=== PATIENT | female | born 1945 | race Caucasian/White ===

== ENCOUNTER 2017-04-07 07:49 | Day surgery (SDC) | payer MEDICARE, OTHER ==
[~2017-04-07] VITALS: Ht 172.7 cm; Wt 144.7 kg
[~2017-04-07 07:49] MED LIST: ALBU90OI INH; ALPHA LIPOIC A600 MG PO; ASPI325 PO; ASPI81CH PO; CHOL10002 PO; DILT30 PO; FURO40 PO; GLIP10ER PO; HTN MEDS; IBUP800 PO; LOSARTAN-HCTZ1 EAC1 PO; LOSHYD100 PO; METF500 PO; MOXI400 PO; NAPR220 PO; Neurontin300 MG PO; OXYACE5T PO; POTCHL20ER PO; RXTRAM50 PO; SITA100T2 PO; TRAM50 PO; WALKER USE; XARELTO20 MG PO
== END 2017-04-07 22:55 | disposition home or self-care (01) ==
LOC: ORSCMMR 07:49
DX: K62.5 Hemorrhage of anus and rectum (principal); D12.4 Benign neoplasm of descending colon; K63.5 Polyp of colon; K64.4 Residual hemorrhoidal skin tags; I10 Essential (primary) hypertension; E11.40 Type 2 diabetes mellitus with diabetic neuropathy, unspecified; G47.33 Obstructive sleep apnea (adult) (pediatric); E66.01 Morbid (severe) obesity due to excess calories; Z68.42 Body mass index [BMI] 45.0-49.9, adult; I48.91 Unspecified atrial fibrillation; Z79.82 Long term (current) use of aspirin; Z79.899 Other long term (current) drug therapy; Z79.84 Long term (current) use of oral hypoglycemic drugs
CPT/HCPCS: 82947; 88305; J2250; J3010; J7120

== ENCOUNTER 2018-05-18 15:09 | Inpatient (IN) | payer MEDICARE, OTHER ==
[~2018-05-18] VITALS: Ht 172.7 cm; Wt 124.0 kg
[~2018-05-18 15:09] MED LIST changes: +GABA600 PO; -LOSARTAN-HCTZ1 EAC1 PO; +LOSARTAN-HCTZ1 EACH PO; -METF500 PO; +Metformin HCl1000 MG PO; -Neurontin300 MG PO
[2018-05-18 15:47] LABS: BASOPHILS ABSOLUTE AUTO 0.03 K/mm3 (0.00-0.23); BASOPHILS PERCENT AUTO 0 % (0-2); EOSINOPHILS ABSOLUTE AUTO 0.15 K/mm3 (0.00-0.68); EOSINOPHILS PERCENT AUTO 2 % (0-6); Hematocrit 39.9 % (33.0-51.0); Hemoglobin 11.7 g/dL (11.5-16.0); IMMATURE GRAN ABSOLUTE AUTO 0.05 K/mm3 (0.00-0.10); IMMATURE GRAN PERCENT AUTO 1 % (0-1); LYMPHOCYTES ABSOLUTE AUTO 1.88 K/mm3 (0.84-5.20); LYMPHOCYTES PERCENT AUTO 21 % (21-46); MONOCYTES ABSOLUTE AUTO 0.58 K/mm3 (0.16-1.47); MONOCYTES PERCENT AUTO 7 % (4-13); Mean Corpuscular HGB 28.7 pg (26.0-34.0); Mean Corpuscular HGB Conc 29.3 g/dL (31.5-36.5); Mean Corpuscular Volume 98 fL (80-100); Mean Platelet Volume 10.6 fL (9.1-12.4); NEUTROPHILS ABSOLUTE AUTO 6.11 K/mm3 (1.96-9.15); NEUTROPHILS PERCENT AUTO 69 % (41-73); Platelet Count 279 K/mm3 (150-400); RDW Standard Deviation 53.5 fL (35.1-46.3); Red Blood Cell Count 4.07 M/mm3 (3.80-5.20)
[2018-05-18] MEDS ORDERED: ONGLYZA5 MG PO (15:59)
[2018-05-18] MEDS ORDERED: ROSU10TA PO (15:59)
[2018-05-18] MEDS ORDERED: ONE DAILY COMP1 EACH PO (16:00)
[2018-05-18] MEDS ORDERED: ALPHA LIPOIC A600 MG PO (16:01)
[2018-05-18] MEDS ORDERED: B Complex #11 EACH PO (16:01)
[2018-05-18] MEDS ORDERED: B-121000 MC2 PO (16:01)
[2018-05-18] MEDS ORDERED: CVS GLUCOSAMN-1 EACH PO (16:14)
[2018-05-18] MEDS ORDERED: MAGOXI400 PO (16:14)
[2018-05-18] MEDS ORDERED: NAPR220 PO (16:15)
[2018-05-18] MEDS ORDERED: DILTIAZEM 24HR240 M2 PO (16:15)
[2018-05-18 16:17] LABS: Troponin I <0.015 ng/mL (0.000-0.040)
[2018-05-18 16:18] LABS: Alanine Aminotransfer (ALT/SGP 18 U/L (12-78); Albumin, Blood 3.2 g/dL (3.4-5.0); Albumin/Globulin Ratio 0.6 (0.8-1.8); Alk Phos 96 U/L (50-136); Anion Gap 9 mmol/L (6-16); Aspartate Aminotrans (AST/SGOT 16 U/L (12-37); Bilirubin, Total 1.3 mg/dL (0.1-1.0); Blood Urea Nitrogen 19 mg/dL (8-24); Bun/Creatinine Ratio 19.2 (12.0-20.0); CO2, Blood 28 mmol/L (21-32); Calcium, Blood 8.5 mg/dL (8.5-10.1); Chloride, Blood 103 mmol/L (98-108); Creatinine, Blood 0.99 mg/dL (0.40-1.00); Glomerular Filtration Rate 58 (60-); Glucose, Blood 207 mg/dL (70-99); Potassium, Blood 4.2 mmol/L (3.5-5.5); Sodium, Blood 140 mmol/L (136-145); Total Protein, Blood 8.2 g/dL (6.4-8.2)
--- NOTE | 2018-05-18 20:30 | NUR ---
ASSUMED CARE REPORT TAKEN FROM ED RN LUIS ANGEL. PT ARRIVED TO UNIT AND MOVED TO HOSP BED UNASSISTED. PT ON BIPAP UPON ARRIVAL. RESP EVEN AND SLIGHTLY TACHYPNIC W/ AMBULATION. SATS >92%. SKIN IS PWD. PT REPORTS FEELING BETTER WITH BIPAP, REPORTS FEELING HINGRY HAS NTO EATEN SINCE BREAKFAST. CBG TAKEN AND SNACK PROVIDED. PT ON 4L O2 VIA NC WHILE EATING, TOLERATING BREAK FROM BIPAP WELL SATS 88-90%. PT RESUMES BIPAP AFTER SNACK. DENIES ANY CP, DENIES OTHER PAIN. CALL LIGHT IN REACH.
[2018-05-19 04:09] LABS: Hematocrit 38.1 % (33.0-51.0); Hemoglobin 11.4 g/dL (11.5-16.0); Mean Corpuscular HGB 29.1 pg (26.0-34.0); Mean Corpuscular HGB Conc 29.9 g/dL (31.5-36.5); Mean Corpuscular Volume 97 fL (80-100); Mean Platelet Volume 10.9 fL (9.1-12.4); NRBC ABSOLUTE 0.02 K/mm3 (0.00-0.02); NRBC Auto 0.3 /100 WBC (0.0-0.2); Platelet Count 248 K/mm3 (150-400); RDW Coefficient Variation 15.1 % (11.7-14.2); RDW Standard Deviation 52.8 fL (35.1-46.3); Red Blood Cell Count 3.92 M/mm3 (3.80-5.20); White Blood Cell Count 6.34 K/mm3 (4.00-11.30)
[2018-05-19 04:32] LABS: Magnesium, Blood 2.2 mg/dL (1.6-2.4)
[2018-05-19 04:33] LABS: Bun/Creatinine Ratio 22.5 (12.0-20.0); Calcium, Blood 8.8 mg/dL (8.5-10.1); Creatinine, Blood 1.11 mg/dL (0.40-1.00); Potassium, Blood 5.1 mmol/L (3.5-5.5)
--- NOTE | 2018-05-19 05:01 | NUR ---
SHIFT SUMMARY PT RESTING IN ROOM COMFORTABLY. PT HAD NO ACUTE CHANGES IN STATUS SINCE ARRIVAL. WORE BIPAP MOST OF THE NIGHT. REPORTS DID NOT SLEEP WELL. BUT STILL FEELS BETTER. PT NOW TAKING BREAK FROM BIPAP ON O2 VIA NC. SATS >92%. DENIES ANY SOB. DENIES ANY PAIN. SKIN PWD. CALL LIGHT IN REACH.
[2018-05-19 11:36] LABS: Adenovirus Not Detected (NOT DETECT); Bordetella pertussis Not Detected (NOT DETECT); Chlamydophila pneumoniae Not Detected (NOT DETECT); Coronavirus 229E Not Detected (NOT DETECT); Coronavirus HKU1 Not Detected (NOT DETECT); Coronavirus NL63 Not Detected (NOT DETECT); Coronavirus OC43 Not Detected (NOT DETECT); Human Metapneumovirus Not Detected (NOT DETECT); Human Rhinovirus/Enterovirus Not Detected (NOT DETECT); Influenza A Not Detected (NOT DETECT); Influenza A/2009-H1 Not Detected (NOT DETECT); Influenza A/H1 Not Detected (NOT DETECT); Influenza A/H3 Not Detected (NOT DETECT); Influenza B Not Detected (NOT DETECT); Mycoplasma pneumoniae Not Detected (NOT DETECT); Parainfluenza Virus 1 Not Detected (NOT DETECT); Parainfluenza Virus 2 Not Detected (NOT DETECT); Parainfluenza Virus 3 Not Detected (NOT DETECT); Parainfluenza Virus 4 Not Detected (NOT DETECT); Respiratory Syncytial Virus Not Detected (NOT DETECT)
--- NOTE | 2018-05-19 14:13 | NUR ---
patient just finished visit with pastoral care. patient tells me her breathing is at baseline, and that she is feeliing better today. patient has some neuropathy pain to lower legs but currently at baseline. patient oriented to room and call system
--- NOTE | 2018-05-19 14:16 | NUR ---
Spiritual care visit conducted. I entered patient's room and introduced myself. Patient welcomed me in and therapeutic alliance was easily established. Patient openly shared about her family unit complications, the loss of her loved ones and her medical hsitory. I facilitated a life review and learned about patient's talents, passions and mandaen background. I listened empathically, provided companionship and prayer. Patient responded well and displayed evidence of restored be.
--- NOTE | 2018-05-19 18:08 | NUR ---
summary patient cheerful, visiting with friends. patient sob with repositioning self which she states is a little worse than her baseline. patients lungs very decreased in bases and diminished in other lobes
--- NOTE | 2018-05-20 04:18 | NUR ---
PT HAD NO ACUTE CHANGES T/O NIGHT. BP ELEVATED EARLY IN SHIFT AFTER AMBULATION, DID RETURN TO PT NORMAL UPON FOR REMAINDER OF SHIFT. 2LO2 NC IN PLACE WHEN AWAKE, CPAP WHILE ASLEEP. PT REMAINS SOB W/EXERTION, PT REP SOB IS NEAR BASELINE. PT UP IN ROOM W/FWW+SBA. WILL CONT TO MONITOR UNTIL REP GIVEN TO ONCOMING RN.
[2018-05-20 06:38] LABS: Adenovirus Not Detected (NOT DETECT); Bordetella pertussis Not Detected (NOT DETECT); Chlamydophila pneumoniae Not Detected (NOT DETECT); Coronavirus 229E Not Detected (NOT DETECT); Coronavirus HKU1 Not Detected (NOT DETECT); Coronavirus NL63 Not Detected (NOT DETECT); Coronavirus OC43 Not Detected (NOT DETECT); Human Metapneumovirus Not Detected (NOT DETECT); Human Rhinovirus/Enterovirus Not Detected (NOT DETECT); Influenza A Not Detected (NOT DETECT); Influenza A/2009-H1 Not Detected (NOT DETECT); Influenza A/H1 Not Detected (NOT DETECT); Influenza A/H3 Not Detected (NOT DETECT); Influenza B Not Detected (NOT DETECT); Mycoplasma pneumoniae Not Detected (NOT DETECT); Parainfluenza Virus 1 Not Detected (NOT DETECT); Parainfluenza Virus 2 Not Detected (NOT DETECT); Parainfluenza Virus 3 Not Detected (NOT DETECT); Parainfluenza Virus 4 Not Detected (NOT DETECT); Respiratory Syncytial Virus Not Detected (NOT DETECT)
--- NOTE | 2018-05-20 11:36 | NUR ---
diabetes PATIENT DISCUSSING HER FOOD PREFERENCES AND TELLS ME SHE DOESNT LIKE ARTIFICIAL SWEETNERS AND LOVES SUGAR AND BUTTER. PATIENT TELLS ME SHE WILL EAT HONEY BECAUSE IT IS VERY HEALTHY. DISCUSSED WITH PATIENT POTENTIAL COMPLICATIONS FROM UNCONTROLLED DIABETES. AFTER SPEAKING WITH PATIENT SHE HAS A POOR UNDERSTANDING OF DIABETIC DIET. SPOKE WITH CAR WASHER AND CONSULT REQUESTED
== END 2018-05-20 14:13 | disposition home or self-care (01) | DRG 291 ==
LOC: ER 15:09 → PCU 17:43 → SURS 05-19 13:57
PROVIDERS: Emergency Medicine; Hospitalist; Nurse Practitioner Acute Care; ADMIT Internal Medicine
DX: I11.0 Hypertensive heart disease with heart failure (principal); J96.21 Acute and chronic respiratory failure with hypoxia; Z68.42 Body mass index [BMI] 45.0-49.9, adult; I50.33 Acute on chronic diastolic (congestive) heart failure; G47.33 Obstructive sleep apnea (adult) (pediatric); E66.01 Morbid (severe) obesity due to excess calories; I48.0 Paroxysmal atrial fibrillation; E11.9 Type 2 diabetes mellitus without complications; K21.9 Gastro-esophageal reflux disease without esophagitis; Z66 Do not resuscitate; Z88.5 Allergy status to narcotic agent; Z79.84 Long term (current) use of oral hypoglycemic drugs; Z79.01 Long term (current) use of anticoagulants; Z79.82 Long term (current) use of aspirin; Z79.899 Other long term (current) drug therapy; Z87.891 Personal history of nicotine dependence; Z99.81 Dependence on supplemental oxygen
CPT/HCPCS: 36415; 71045; 71260; 80048; 80053; 82375; 82947; 83735; 83880; 84145; 84484; 85025; 85027; 87081; 87486; 87581; 87633; 87798; 93005; 93010; 93306; 94640; 94660; 94760; 94762; 96374; 96375; 99285-25; A9270; J1940; J2930; Q9967

== ENCOUNTER 2019-03-10 16:25 | Inpatient (IN) | payer MEDICARE, OTHER ==
[~2019-03-10] VITALS: Ht 172.7 cm; Wt 143.8 kg
[~2019-03-10 16:25] MED LIST changes: +B Complex #11 EACH PO; +B-121000 MC2 PO; +CVS GLUCOSAMN-1 EACH PO; +DILTIAZEM ER360 MG PO; +MAGOXI400 PO; +ONE DAILY COMP1 EACH PO; +ONGLYZA5 MG PO; +ROSU10TA PO
[2019-03-10 17:08] LABS: BASOPHILS ABSOLUTE AUTO 0.04 K/mm3 (0.00-0.23); BASOPHILS PERCENT AUTO 0 % (0-2); EOSINOPHILS ABSOLUTE AUTO 0.01 K/mm3 (0.00-0.68); EOSINOPHILS PERCENT AUTO 0 % (0-6); Hematocrit 31.8 % (33.0-51.0); IMMATURE GRAN PERCENT AUTO 1 % (0-1); LYMPHOCYTES ABSOLUTE AUTO 1.54 K/mm3 (0.84-5.20); LYMPHOCYTES PERCENT AUTO 8 % (21-46); MONOCYTES ABSOLUTE AUTO 1.07 K/mm3 (0.16-1.47); MONOCYTES PERCENT AUTO 6 % (4-13); Mean Corpuscular HGB 26.8 pg (26.0-34.0); Mean Corpuscular HGB Conc 28.3 g/dL (31.5-36.5); Mean Corpuscular Volume 95 fL (80-100); Mean Platelet Volume 10.8 fL (9.1-12.4); NEUTROPHILS ABSOLUTE AUTO 15.57 K/mm3 (1.96-9.15); NEUTROPHILS PERCENT AUTO 85 % (41-73); NRBC ABSOLUTE 0.03 K/mm3 (0.00-0.02); NRBC Auto 0.2 /100 WBC (0.0-0.2); Platelet Count 283 K/mm3 (150-400); RDW Coefficient Variation 16.1 % (11.7-14.2); Red Blood Cell Count 3.36 M/mm3 (3.80-5.20); White Blood Cell Count 18.33 K/mm3 (4.00-11.30)
[2019-03-10 17:12] LABS: PCO2 Arterial 54.1 mmHg (35-45); PO2 Arterial 70.7 mmHg (80-100); pH Blood Arterial 7.36 (7.35-7.45)
[2019-03-10 17:29] LABS: Alanine Aminotransfer (ALT/SGP 18 U/L (12-78); Albumin/Globulin Ratio 0.6 (0.8-1.8); Alk Phos 91 U/L (50-136); Anion Gap 6 mmol/L (6-16); Aspartate Aminotrans (AST/SGOT 16 U/L (12-37); Bilirubin, Total 0.9 mg/dL (0.1-1.0); Blood Urea Nitrogen 29 mg/dL (8-24); Bun/Creatinine Ratio 21.5 (12.0-20.0); CO2, Blood 29 mmol/L (21-32); Calcium, Blood 8.6 mg/dL (8.5-10.1); Chloride, Blood 101 mmol/L (98-108); Creatinine, Blood 1.35 mg/dL (0.40-1.00); Globulin, Blood 5.2 g/dL (2.2-4.0); Glomerular Filtration Rate 41 (60-); Glucose, Blood 98 mg/dL (70-99); Potassium, Blood 4.7 mmol/L (3.5-5.5); Sodium, Blood 136 mmol/L (136-145); Total Protein, Blood 8.2 g/dL (6.4-8.2); Troponin I <0.015 ng/mL (0.000-0.040)
[2019-03-11 00:04] LABS: Adenovirus Not Detected (NOT DETECT); Bordetella pertussis Not Detected (NOT DETECT); Chlamydophila pneumoniae Not Detected (NOT DETECT); Coronavirus 229E Not Detected (NOT DETECT); Coronavirus HKU1 Not Detected (NOT DETECT); Coronavirus NL63 Not Detected (NOT DETECT); Coronavirus OC43 Not Detected (NOT DETECT); Human Metapneumovirus Not Detected (NOT DETECT); Human Rhinovirus/Enterovirus Not Detected (NOT DETECT); Influenza A Not Detected (NOT DETECT); Influenza A/2009-H1 Not Detected (NOT DETECT); Influenza A/H1 Not Detected (NOT DETECT); Influenza A/H3 Not Detected (NOT DETECT); Influenza B Not Detected (NOT DETECT); Mycoplasma pneumoniae Not Detected (NOT DETECT); Parainfluenza Virus 1 Not Detected (NOT DETECT); Parainfluenza Virus 2 Not Detected (NOT DETECT); Parainfluenza Virus 3 Not Detected (NOT DETECT); Parainfluenza Virus 4 Not Detected (NOT DETECT); Respiratory Syncytial Virus Not Detected (NOT DETECT)
[2019-03-11 01:14] LABS: BASOPHILS ABSOLUTE AUTO 0.04 K/mm3 (0.00-0.23); BASOPHILS PERCENT AUTO 0 % (0-2); EOSINOPHILS ABSOLUTE AUTO 0.02 K/mm3 (0.00-0.68); EOSINOPHILS PERCENT AUTO 0 % (0-6); Hematocrit 27.4 % (33.0-51.0); Hemoglobin 7.8 g/dL (11.5-16.0); IMMATURE GRAN ABSOLUTE AUTO 0.05 K/mm3 (0.00-0.10); IMMATURE GRAN PERCENT AUTO 0 % (0-1); LYMPHOCYTES ABSOLUTE AUTO 1.34 K/mm3 (0.84-5.20); LYMPHOCYTES PERCENT AUTO 10 % (21-46); MONOCYTES ABSOLUTE AUTO 0.91 K/mm3 (0.16-1.47); MONOCYTES PERCENT AUTO 7 % (4-13); Mean Corpuscular HGB 26.5 pg (26.0-34.0); Mean Corpuscular HGB Conc 28.5 g/dL (31.5-36.5); Mean Corpuscular Volume 93 fL (80-100); Mean Platelet Volume 10.6 fL (9.1-12.4); NEUTROPHILS ABSOLUTE AUTO 10.84 K/mm3 (1.96-9.15); NEUTROPHILS PERCENT AUTO 82 % (41-73); Platelet Count 225 K/mm3 (150-400); RDW Standard Deviation 54.5 fL (35.1-46.3); Red Blood Cell Count 2.94 M/mm3 (3.80-5.20)
[2019-03-11 01:33] LABS: Bun/Creatinine Ratio 20.9 (12.0-20.0); Calcium, Blood 8.5 mg/dL (8.5-10.1); Creatinine, Blood 1.48 mg/dL (0.40-1.00); Potassium, Blood 4.9 mmol/L (3.5-5.5)
--- NOTE | 2019-03-11 02:07 | NUR ---
dr aware of labs, trying to balance all needs and conditions, legs to painful for scds, hemrroids effecting guiac, kidney and liver limiting range of interventions, woke up confused, took off clothes and monitors, very appoligetic and cooperative, bipap running
--- NOTE | 2019-03-11 07:23 | NUR ---
a+o, call light in reach, will share bsr with pt and staff, currently on bipap and has been maintaining above 88 for the shift, no complaint of respirtory distress, legs remain wrapped and she states pain free, no stool collected but blood noted when cleaning, informed staff of need for clarification for treatment
[2019-03-11 10:53] LABS: Percent Saturation 6.6 % (15.0-50.0)
[2019-03-11 12:59] LABS: Hematocrit 30.9 % (33.0-51.0); Hemoglobin 8.5 g/dL (11.5-16.0)
--- NOTE | 2019-03-11 18:31 | NUR ---
SHIFT NOTE PT HAS BEEN ON 2L O2 SINCE THIS RN CAME ON SHIFT THIS AM WHICH PT IS TOLERATING WELL, SPO2 95%. PT STS THAT SHE FEELS THAT SHE IS AT HER BASELINE. DENIES SOB OR CP. PT A/O X4. LS CLEAR BUT DECREASED T/O. VSS T/O THE SHIFT. PT HAS BEEN 1 SBA TO [facility]
--- NOTE | 2019-03-11 21:02 | NUR ---
care given, changed dressing on legs, bed bath, sitting up in chair, hair cleaned, adjusted in bed, will continue to monitor and treat as appropriate
--- NOTE | 2019-03-11 23:35 | NUR ---
HARD to get steady pulse on fingers went with ear monitor for more consistent results, using hospital bipap due to concern r/low o2 profusion, rate 12 ipap 16 02 40%, appears to be resting comfortably
[2019-03-12 04:02] LABS: BASOPHILS ABSOLUTE AUTO 0.03 K/mm3 (0.00-0.23); BASOPHILS PERCENT AUTO 0 % (0-2); EOSINOPHILS ABSOLUTE AUTO 0.14 K/mm3 (0.00-0.68); EOSINOPHILS PERCENT AUTO 2 % (0-6); Hematocrit 27.9 % (33.0-51.0); IMMATURE GRAN ABSOLUTE AUTO 0.03 K/mm3 (0.00-0.10); IMMATURE GRAN PERCENT AUTO 0 % (0-1); LYMPHOCYTES PERCENT AUTO 17 % (21-46); MONOCYTES ABSOLUTE AUTO 0.79 K/mm3 (0.16-1.47); MONOCYTES PERCENT AUTO 9 % (4-13); Mean Corpuscular HGB 26.4 pg (26.0-34.0); Mean Corpuscular HGB Conc 28.7 g/dL (31.5-36.5); Mean Corpuscular Volume 92 fL (80-100); Mean Platelet Volume 10.8 fL (9.1-12.4); NEUTROPHILS ABSOLUTE AUTO 6.24 K/mm3 (1.96-9.15); NEUTROPHILS PERCENT AUTO 72 % (41-73); Platelet Count 244 K/mm3 (150-400); RDW Standard Deviation 53.6 fL (35.1-46.3); Red Blood Cell Count 3.03 M/mm3 (3.80-5.20); White Blood Cell Count 8.73 K/mm3 (4.00-11.30)
[2019-03-12 04:19] LABS: Albumin, Blood 2.7 g/dL (3.4-5.0); Anion Gap 6 mmol/L (6-16); Blood Urea Nitrogen 33 mg/dL (8-24); Bun/Creatinine Ratio 26.4 (12.0-20.0); CO2, Blood 33 mmol/L (21-32); Calcium, Blood 8.4 mg/dL (8.5-10.1); Chloride, Blood 99 mmol/L (98-108); Creatinine, Blood 1.25 mg/dL (0.40-1.00); Glomerular Filtration Rate 45 (60-); Glucose, Blood 116 mg/dL (70-99); Phosphorus, Blood 4.7 mg/dL (2.5-4.9); Potassium, Blood 4.5 mmol/L (3.5-5.5); Sodium, Blood 138 mmol/L (136-145)
--- NOTE | 2019-03-12 07:28 | NUR ---
no significant changes in medical status during shift, call light in reach, bsr shared with pt and returning day staff, saline locked on 6l via oximizer, but alarm frequently goes off for low o2 due to mouth breathing, declined to use mask because she was afraid she would not be able to get mask off, needs major assistance to move or change position in bed
[2019-03-12 12:28] LABS: Hemoglobin 8.3 g/dL (11.5-16.0)
--- NOTE | 2019-03-12 19:15 | NUR ---
SHIFT NOTE PT HAS REMAINED A/O X4 T/O SHIFT. PT STS THAT SHE FEELS THAT SHE IS AT HER BASELINE FOR HOME, DR COLLINS IN TO SEE PT STS THAT PERHAPS WILL BE D/C IN THE AM. PT HAS BEEN ON 3L O2 VIS NC T/O THE SHIFT. THERE WAS A CHANGE TO PLACE PT ON HOME CPAP FOR TONIGHT.PT REMAINS STEADY UP TO [facility] [place] 1 PERSON TO STAND BY
--- NOTE | 2019-03-13 03:59 | NUR ---
SHIFT SUMMARY PT MOSTLY PLEASANT AND COOPERATIVE THIS EVENING. WORE HOME CPAP UNITL APPROX 0330 WHEN PT WOKE AND WANTED TO SIT AT THE SIDE OF THE BED. 3 L O2 NC PLACED WHEN CPAP WAS REMOVED. PT TOOK PULSE OX OFF AT THIS TIME AND REFUSED TO PUT IT BACK ON. O2 SATS IN THE LOW TO MID 90'S WHEN REMOVED. BLE'S RED AND WEEPING. DRESSINGS CHANGED TO BLE'S WITH NON ADHERANT PADS, ABD PADS AND KERLEX. CLEANSED WITH WOUND ADMISSIONS RN BEFORE NEW DRESSINGS WERE PLACED. PT UP TO BSC WITH MINIMAL ASSIST. DOES NEED ASSISTANCE WITH WIPING AND GETTING LEGS BACK IN TO BED. VITAL SIGNS STABLE. NO ACUTE CHANGES THIS EVENING. WILL CONTINUE TO MONITOR.
[2019-03-13 04:16] LABS: BASOPHILS ABSOLUTE AUTO 0.03 K/mm3 (0.00-0.23); BASOPHILS PERCENT AUTO 0 % (0-2); EOSINOPHILS ABSOLUTE AUTO 0.17 K/mm3 (0.00-0.68); EOSINOPHILS PERCENT AUTO 2 % (0-6); Hematocrit 27.9 % (33.0-51.0); Hemoglobin 7.9 g/dL (11.5-16.0); IMMATURE GRAN ABSOLUTE AUTO 0.03 K/mm3 (0.00-0.10); IMMATURE GRAN PERCENT AUTO 0 % (0-1); LYMPHOCYTES PERCENT AUTO 16 % (21-46); MONOCYTES ABSOLUTE AUTO 0.76 K/mm3 (0.16-1.47); MONOCYTES PERCENT AUTO 9 % (4-13); Mean Corpuscular HGB 26.2 pg (26.0-34.0); Mean Corpuscular HGB Conc 28.3 g/dL (31.5-36.5); Mean Corpuscular Volume 92 fL (80-100); Mean Platelet Volume 10.7 fL (9.1-12.4); NEUTROPHILS ABSOLUTE AUTO 6.34 K/mm3 (1.96-9.15); NEUTROPHILS PERCENT AUTO 73 % (41-73); Platelet Count 254 K/mm3 (150-400); RDW Coefficient Variation 15.7 % (11.7-14.2); RDW Standard Deviation 52.6 fL (35.1-46.3); Red Blood Cell Count 3.02 M/mm3 (3.80-5.20); White Blood Cell Count 8.73 K/mm3 (4.00-11.30)
[2019-03-13 04:33] LABS: Albumin, Blood 2.8 g/dL (3.4-5.0); Anion Gap 5 mmol/L (6-16); Blood Urea Nitrogen 26 mg/dL (8-24); Bun/Creatinine Ratio 25.2 (12.0-20.0); CO2, Blood 34 mmol/L (21-32); Calcium, Blood 8.5 mg/dL (8.5-10.1); Chloride, Blood 97 mmol/L (98-108); Creatinine, Blood 1.03 mg/dL (0.40-1.00); Glomerular Filtration Rate 56 (60-); Glucose, Blood 118 mg/dL (70-99); Phosphorus, Blood 4.4 mg/dL (2.5-4.9); Potassium, Blood 4.1 mmol/L (3.5-5.5); Sodium, Blood 136 mmol/L (136-145)
--- NOTE | 2019-03-13 11:53 | NUR ---
CALLED LN TO OBTAIN REPORT ON PATIENT. (LN TO RETURN CALL)
--- NOTE | 2019-03-13 12:24 | NUR ---
REPORT TO CARLOS HIRSCH ON MEDICAL
--- NOTE | 2019-03-13 12:50 | NUR ---
LATE ENTRY: PATIENT ARRIVED TO MEDICAL FLOOR WITH NO COMPLAINTS OF PAIN OR SOB. ORIENTED TO ROOM, FAMILY AT BEDSIDE AND PATIENT ABLE TO MAKE NEEDS KNOWN AND CALL LIGHT WITHIN REACH OF PATIENT.
[2019-03-13 15:03] LABS: Hematocrit 27.6 % (33.0-51.0); Hemoglobin 7.9 g/dL (11.5-16.0)
--- NOTE | 2019-03-13 17:50 | NUR ---
SHIFT SUMMARY PATIENT WAS A TRANSFER TO MEDICAL FLOOR THIS AFTERNOON AND SON AT BEDSIDE. PATIENT ORIENTED TO ROOM. NO COMPLAINTS OF PAIN OR SOB. PATIENT ON TELEMETRY.PATIENT IS A 1 PERSON STANDBY ASSIST TO BEDSIDE COMMODE. ALERT AND ORIENTED, PATIENT HAS BILATERAL LOWER EXTREMITY REDNESS AND THE LEFT LEG HAS SMALL OPENINGS, PHOTOS TAKEN AND CONSENT FOR PHOTO SIGNED BY PATIENT. DRESSINGS CHANGED AND THEY CARE CDI.
--- NOTE | 2019-03-14 04:00 | NUR ---
ASH PIT WORKER SUMMARY PT A/O X4 AT BEGINNING OF SHIFT. PT HAS WOKEN UP MULTIPLE TIMES THROUGHOUT THE NIGHT TO SIT UP AT EDGE OF BED. PT WOKE UP ONCE AND STARTED PULLING AT CONT. PULSE OX AND HEART MONITOR AND SAID SHE WANTED THEM "OFF". PT WOULD ALSO PULL OFF CPAP AT TIMES AND WOULD DE-SAT TO LOW 80S. NURSE EDUCATED PT TO PUT CPAP BACK ON IT HELPS TO KEEP OXYGEN UP. PT ASSISTED TO BEDSIDE COMMODE A COUPLE OF TIMES TO VOID. STOOL SOFTNER GIVEN. NO BM YET. AWAITING STOOL SAMPLE COLLECTION. NEW IV PUT IN EARLIER IN SHIFT THE CATHTER IN OLD IV WAS BENT AND NO FLUIDS COULD GO THROUGH IV. PT ALSO HAD BLEEDING AROUND THE OLD IV SITE. BED ALARM ON, BED IN LOWEST POSITION. WILL CONTINUE TO MONITOR.
[2019-03-14 06:22] LABS: BASOPHILS ABSOLUTE AUTO 0.03 K/mm3 (0.00-0.23); BASOPHILS PERCENT AUTO 0 % (0-2); EOSINOPHILS ABSOLUTE AUTO 0.22 K/mm3 (0.00-0.68); EOSINOPHILS PERCENT AUTO 3 % (0-6); Hematocrit 28.4 % (33.0-51.0); IMMATURE GRAN ABSOLUTE AUTO 0.05 K/mm3 (0.00-0.10); IMMATURE GRAN PERCENT AUTO 1 % (0-1); LYMPHOCYTES ABSOLUTE AUTO 1.34 K/mm3 (0.84-5.20); LYMPHOCYTES PERCENT AUTO 16 % (21-46); MONOCYTES ABSOLUTE AUTO 0.91 K/mm3 (0.16-1.47); MONOCYTES PERCENT AUTO 11 % (4-13); Mean Corpuscular HGB 26.1 pg (26.0-34.0); Mean Corpuscular HGB Conc 28.2 g/dL (31.5-36.5); Mean Corpuscular Volume 93 fL (80-100); Mean Platelet Volume 10.6 fL (9.1-12.4); NEUTROPHILS ABSOLUTE AUTO 5.82 K/mm3 (1.96-9.15); NEUTROPHILS PERCENT AUTO 70 % (41-73); Platelet Count 234 K/mm3 (150-400); RDW Coefficient Variation 15.6 % (11.7-14.2); RDW Standard Deviation 52.3 fL (35.1-46.3); Red Blood Cell Count 3.07 M/mm3 (3.80-5.20); White Blood Cell Count 8.37 K/mm3 (4.00-11.30)
[2019-03-14 06:41] LABS: Albumin, Blood 2.7 g/dL (3.4-5.0); Anion Gap 4 mmol/L (6-16); Blood Urea Nitrogen 21 mg/dL (8-24); Bun/Creatinine Ratio 20.4 (12.0-20.0); CO2, Blood 35 mmol/L (21-32); Calcium, Blood 8.5 mg/dL (8.5-10.1); Chloride, Blood 98 mmol/L (98-108); Creatinine, Blood 1.03 mg/dL (0.40-1.00); Glomerular Filtration Rate 56 (60-); Glucose, Blood 144 mg/dL (70-99); Phosphorus, Blood 3.5 mg/dL (2.5-4.9); Potassium, Blood 4.1 mmol/L (3.5-5.5); Sodium, Blood 137 mmol/L (136-145)
--- NOTE | 2019-03-14 13:59 | NUR ---
SHIFT SUMMARY PT AWAKE AT START OF SHIFT, LAYING HF. ADMITTED FOR RESPIRATORY FAILURE AND HYPERCAPNIA. PT ON 5L O2 AT START OF SHIFT, DECREASED TO 3L O2 WITH BIOX AT 94%. LUNGS T/O DIMINISHED THRU OUT WITH CRACKLES IN THE BASES. PT 1P ASSIST TO BSC TO VOID. LASIX IV GIVEN "FOR MY HEART AND LUNGS". PT REPORTED BM LAST NIGHT AND AGAIN THIS AM. UNABLE TO OBTAIN GUIAC ORDERED. BLE'S WRAPPED D/T WEEPING. ABD PADS AND JANIYA WRAPS IN PLACE. PT DECLINED SEVERAL TIMES TO HAVE DRSG'S CHANGED, BECAUSE THEY HAD JUST BEEN CHANGED ON PERFUSIONIST; BOTH APPEARED C/D/I. RADIOLOGY HERE DURING BREAKFAST TO TAKE PT FOR CXR. PT THEN WANTING TO GO HOME AFTER BREAKFAST AND STATED THAT SHE WOULD GO AMA IF NEEDED. DR COLLINS NOTIFIED, BUT UNABLE TO D/C PT BEING ON 5L O2 THIS AM. PT NORMALLY ON RA, EXCEPT FOR AT HS ON BIPAP. ATTEMPTED TO EDU PT TO WAIT FOR DR TO D/C, BUT PT INSISTANT ON LEAVING. PT'S SON TO AND ASSISTED PT WITH BELONGINGS. PT'S SON ALSO ABLE TO BRING IN O2 FOR RIDE HOME. DR COLLINS UPDATED ON PT GOING AMA.
== END 2019-03-14 11:24 | disposition left against medical advice (07) | DRG 871 ==
LOC: ER 16:25 → PCU 19:46 → MEDS 03-13 13:02
PROVIDERS: Family Medicine; Nurse Practitioner Acute Care; Physician Assistant; ADMIT Internal Medicine
DX: A41.9 Sepsis, unspecified organism (principal); J18.9 Pneumonia, unspecified organism; I50.33 Acute on chronic diastolic (congestive) heart failure; J96.21 Acute and chronic respiratory failure with hypoxia; J96.22 Acute and chronic respiratory failure with hypercapnia; N17.9 Acute kidney failure, unspecified; Z68.42 Body mass index [BMI] 45.0-49.9, adult; I48.20 Chronic atrial fibrillation, unspecified; R65.20 Severe sepsis without septic shock; G47.33 Obstructive sleep apnea (adult) (pediatric); D50.9 Iron deficiency anemia, unspecified; I11.0 Hypertensive heart disease with heart failure; E11.40 Type 2 diabetes mellitus with diabetic neuropathy, unspecified; E78.5 Hyperlipidemia, unspecified; K21.9 Gastro-esophageal reflux disease without esophagitis; E66.01 Morbid (severe) obesity due to excess calories; Z86.718 Personal history of other venous thrombosis and embolism; Z99.81 Dependence on supplemental oxygen; Z87.891 Personal history of nicotine dependence; Z79.84 Long term (current) use of oral hypoglycemic drugs; Z79.899 Other long term (current) drug therapy
CPT/HCPCS: 0099U; 36415; 36600; 71045; 71046; 80048; 80053; 80069; 82607; 82728; 82746; 82803; 82947; 83540; 83550; 83605; 83880; 84145; 84484; 85014; 85018; 85025; 87040; 93005; 93010; 93971; 94640; 94660; 94762; 96365; 96367; 97110; 97162; 97166; 97530; 97535; 99285-25; A9270; J0456; J0696; J1940; J7050

== ENCOUNTER 2019-05-28 20:45 | Emergency (ER) | payer MEDICARE, OTHER ==
[~2019-05-28] VITALS: Ht 172.7 cm; Wt 138.8 kg
[2019-05-28] MEDS ORDERED: MELA3 (21:58)
[2019-05-28] MEDS ORDERED: L-Lysine500 M1 PO (21:59)
[2019-05-28] MEDS ORDERED: MAGNESIUM100 MG (21:59)
[2019-05-28] MEDS ORDERED: Keflex500 MG PO (22:52)
== END 2019-05-29 00:43 | disposition home or self-care (01) ==
LOC: ER 20:45
DX: S91.115A Laceration without foreign body of left lesser toe(s) without damage to nail, initial encounter (principal); E11.9 Type 2 diabetes mellitus without complications; I10 Essential (primary) hypertension; J44.9 Chronic obstructive pulmonary disease, unspecified; Z87.891 Personal history of nicotine dependence; Z88.5 Allergy status to narcotic agent; Z79.899 Other long term (current) drug therapy; W22.8XXA Striking against or struck by other objects, initial encounter
CPT/HCPCS: 73660; 99283-25; A9270-GY

== ENCOUNTER → 2019-06-29 | Outpatient (CLI) | payer MEDICARE, OTHER ==
[~2019-06-29] MED LIST changes: +Keflex500 MG PO; +L-Lysine500 M1 PO; +MAGNESIUM100 MG; +MELA3
[2019-06-29 13:16] LABS: Bilirubin, Urine Neg (Neg); Blood, Urine Neg (Neg); Glucose Qualitative, Urine Neg (Neg); Ketones, Urine Neg (Neg); Leukocyte Esterase, Urine 1+ (Neg); Nitrite, Urine Neg (Neg); Protein, Urine Neg (Neg); Urobilinogen, Urine 2+ (Normal); pH, Urine 6.5 (5.0-8.0)
[2019-06-29 13:46] LABS: Creatinine, Urine Random 91.4 mg/dL (27.00-270.00)
[2019-06-29 13:49] LABS: Microalb/Creat Ratio UR, Rand 8.053 mg/g (0.000-30.000); Microalbumin, Random Urine 7.36 mg/L (0.000-20.000)
[2019-06-29 13:52] LABS: Appearance, Urine Clear (Clear); Color, Urine Yellow (P-Yellow)
[2019-06-29 13:53] LABS: Bacteria Rare /hpf; Red Blood Cells, Urine Not Seen /hpf (0-2); Squamous Epithelial Cells Rare /hpf (Few); Transitional Epithelial Cells Rare /hpf (0-Rare)
== END | disposition home or self-care (01) ==
LOC: LAB SHORT 11:00 → OLS 11:00
DX: E11.9 Type 2 diabetes mellitus without complications (principal)
CPT/HCPCS: 81001; 82043; 82570

== ENCOUNTER 2021-02-03 14:07 | Emergency (ER) | payer MEDICARE, OTHER ==
[~2021-02-03] VITALS: Ht 172.7 cm; Wt 141.1 kg
[2021-02-03 15:04] LABS: BASOPHILS ABSOLUTE AUTO 0.04 K/mm3 (0.00-0.23); BASOPHILS PERCENT AUTO 1 % (0-2); EOSINOPHILS ABSOLUTE AUTO 0.11 K/mm3 (0.00-0.68); EOSINOPHILS PERCENT AUTO 2 % (0-6); Hematocrit 42.9 % (33.0-51.0); Hemoglobin 13.3 g/dL (11.5-16.0); IMMATURE GRAN ABSOLUTE AUTO 0.02 K/mm3 (0.00-0.10); IMMATURE GRAN PERCENT AUTO 0 % (0-1); LYMPHOCYTES ABSOLUTE AUTO 1.39 K/mm3 (0.84-5.20); LYMPHOCYTES PERCENT AUTO 19 % (21-46); MONOCYTES ABSOLUTE AUTO 0.46 K/mm3 (0.16-1.47); MONOCYTES PERCENT AUTO 6 % (4-13); Mean Corpuscular HGB 31.7 pg (26.0-34.0); Mean Corpuscular Volume 102 fL (80-100); Mean Platelet Volume 11.1 fL (9.1-12.4); NEUTROPHILS ABSOLUTE AUTO 5.29 K/mm3 (1.96-9.15); NEUTROPHILS PERCENT AUTO 72 % (41-73); Platelet Count 184 K/mm3 (150-400); RDW Coefficient Variation 16.5 % (11.7-14.2); RDW Standard Deviation 61.7 fL (35.1-46.3); Red Blood Cell Count 4.19 M/mm3 (3.80-5.20); White Blood Cell Count 7.31 K/mm3 (4.00-11.30)
[2021-02-03 15:45] LABS: Alanine Aminotransfer (ALT/SGP 20 U/L (12-78); Albumin, Blood 3.3 g/dL (3.4-5.0); Albumin/Globulin Ratio 0.6 (0.8-1.8); Alk Phos 121 U/L (50-136); Anion Gap 3 mmol/L (6-16); Aspartate Aminotrans (AST/SGOT 21 U/L (12-37); Blood Urea Nitrogen 14 mg/dL (8-24); Bun/Creatinine Ratio 15.2 (12.0-20.0); CO2, Blood 32 mmol/L (21-32); Calcium, Blood 9.2 mg/dL (8.5-10.1); Chloride, Blood 103 mmol/L (98-108); Creatinine, Blood 0.92 mg/dL (0.40-1.00); Globulin, Blood 5.8 g/dL (2.2-4.0); Glomerular Filtration Rate 59 (60-); Glucose, Blood 119 mg/dL (70-99); Sodium, Blood 138 mmol/L (136-145); Total Protein, Blood 9.1 g/dL (6.4-8.2)
[2021-02-03 15:48] LABS: Troponin I <0.015 ng/mL (0.000-0.040)
[2021-02-03] MEDS ORDERED: METF500 PO (18:23)
[2021-02-03] MEDS ORDERED: PREG100 PO (18:23)
[2021-02-03] MEDS ORDERED: FARXIGA10 MG PO (18:23)
[2021-02-03] MEDS ORDERED: ALLO300 PO (18:24)
[2021-02-03] MEDS ORDERED: FERSU300 PO (18:25)
[2021-02-03] MEDS ORDERED: TRULICITY3 MG/0.5 M SC (18:25)
[2021-02-03] MEDS ORDERED: COLCRYS0.6 MG PO (18:26)
== END 2021-02-03 19:18 | disposition home or self-care (01) ==
LOC: ER 14:07
PROVIDERS: Physician Assistant
DX: J12.9 Viral pneumonia, unspecified (principal); Z88.5 Allergy status to narcotic agent; Z79.899 Other long term (current) drug therapy; Z79.84 Long term (current) use of oral hypoglycemic drugs; E11.9 Type 2 diabetes mellitus without complications; I10 Essential (primary) hypertension; J44.9 Chronic obstructive pulmonary disease, unspecified; Z87.891 Personal history of nicotine dependence
CPT/HCPCS: 36415; 71046; 71260; 80053; 83880; 84484; 85025; 85379; 93005; 93010; 99284-25; Q9967

== ENCOUNTER 2021-02-19 11:31 | Emergency (ER) | payer MEDICARE, OTHER ==
[~2021-02-19] VITALS: Ht 172.7 cm; Wt 140.6 kg
[~2021-02-19 11:31] MED LIST changes: +ALLO300 PO; +COLCRYS0.6 MG PO; +FARXIGA10 MG PO; +FERSU300 PO; +METF500 PO; +PREG100 PO; +TRULICITY3 MG/0.5 M SC
[2021-02-19 12:16] LABS: BASOPHILS ABSOLUTE AUTO 0.03 K/mm3 (0.00-0.23); BASOPHILS PERCENT AUTO 1 % (0-2); EOSINOPHILS PERCENT AUTO 2 % (0-6); Hematocrit 41.4 % (33.0-51.0); Hemoglobin 12.9 g/dL (11.5-16.0); IMMATURE GRAN ABSOLUTE AUTO 0.01 K/mm3 (0.00-0.10); IMMATURE GRAN PERCENT AUTO 0 % (0-1); LYMPHOCYTES ABSOLUTE AUTO 1.28 K/mm3 (0.84-5.20); LYMPHOCYTES PERCENT AUTO 26 % (21-46); MONOCYTES ABSOLUTE AUTO 0.44 K/mm3 (0.16-1.47); MONOCYTES PERCENT AUTO 9 % (4-13); Mean Corpuscular HGB 31.9 pg (26.0-34.0); Mean Corpuscular HGB Conc 31.2 g/dL (31.5-36.5); Mean Corpuscular Volume 103 fL (80-100); Mean Platelet Volume 11.1 fL (9.1-12.4); NEUTROPHILS ABSOLUTE AUTO 2.99 K/mm3 (1.96-9.15); NEUTROPHILS PERCENT AUTO 62 % (41-73); Platelet Count 175 K/mm3 (150-400); RDW Coefficient Variation 16.2 % (11.7-14.2); RDW Standard Deviation 61.1 fL (35.1-46.3); Red Blood Cell Count 4.04 M/mm3 (3.80-5.20); White Blood Cell Count 4.85 K/mm3 (4.00-11.30)
[2021-02-19 12:39] LABS: Alanine Aminotransfer (ALT/SGP 21 U/L (12-78); Albumin, Blood 3.1 g/dL (3.4-5.0); Albumin/Globulin Ratio 0.6 (0.8-1.8); Alk Phos 98 U/L (50-136); Anion Gap 8 mmol/L (6-16); Aspartate Aminotrans (AST/SGOT 26 U/L (12-37); Bilirubin, Total 0.8 mg/dL (0.1-1.0); Blood Urea Nitrogen 13 mg/dL (8-24); Bun/Creatinine Ratio 14.9 (12.0-20.0); CO2, Blood 31 mmol/L (21-32); Calcium, Blood 9.1 mg/dL (8.5-10.1); Chloride, Blood 101 mmol/L (98-108); Creatinine, Blood 0.87 mg/dL (0.40-1.00); Globulin, Blood 5.5 g/dL (2.2-4.0); Glomerular Filtration Rate >60 (60-); Glucose, Blood 130 mg/dL (70-99); Potassium, Blood 4.1 mmol/L (3.5-5.5); Sodium, Blood 140 mmol/L (136-145); Total Protein, Blood 8.6 g/dL (6.4-8.2)
[2021-02-19 13:54] LABS: Free Thyroxine 1.19 ng/dL (0.70-1.60)
[2021-02-19 13:56] LABS: Triiodothyronine, Free 2.78 pg/mL (2.18-3.98)
[2021-02-19] MEDS ORDERED: PRED20 PO (14:56)
== END 2021-02-19 15:48 | disposition home or self-care (01) ==
LOC: ER 11:31
PROVIDERS: Physician Assistant; Student in an Organized Health Care Education/Training Program
DX: H10.9 Unspecified conjunctivitis (principal); H20.9 Unspecified iridocyclitis; H53.142 Visual discomfort, left eye; R51.9 Headache, unspecified; R70.0 Elevated erythrocyte sedimentation rate; R79.82 Elevated C-reactive protein (CRP); J44.9 Chronic obstructive pulmonary disease, unspecified; E11.9 Type 2 diabetes mellitus without complications; E66.9 Obesity, unspecified; Z79.02 Long term (current) use of antithrombotics/antiplatelets; Z68.42 Body mass index [BMI] 45.0-49.9, adult
CPT/HCPCS: 36415; 70481; 80053; 84439; 84443; 84481; 85025; 85651; 86141; 99284-25; J7512; Q9967

== ENCOUNTER 2021-06-10 14:57 | Inpatient (IN) | payer MEDICARE, OTHER ==
[~2021-06-10] VITALS: Ht 172.7 cm; Wt 136.1 kg
[~2021-06-10 14:57] MED LIST changes: +PRED20 PO
[2021-06-10 15:23] LABS: BASOPHILS ABSOLUTE AUTO 0.01 K/mm3 (0.00-0.23); BASOPHILS PERCENT AUTO 0 % (0-2); EOSINOPHILS ABSOLUTE AUTO 0.04 K/mm3 (0.00-0.68); EOSINOPHILS PERCENT AUTO 1 % (0-6); Hematocrit 42.2 % (33.0-51.0); Hemoglobin 12.6 g/dL (11.5-16.0); IMMATURE GRAN ABSOLUTE AUTO 0.03 K/mm3 (0.00-0.10); IMMATURE GRAN PERCENT AUTO 0 % (0-1); LYMPHOCYTES ABSOLUTE AUTO 1.38 K/mm3 (0.84-5.20); LYMPHOCYTES PERCENT AUTO 20 % (21-46); MONOCYTES ABSOLUTE AUTO 0.68 K/mm3 (0.16-1.47); MONOCYTES PERCENT AUTO 10 % (4-13); Mean Corpuscular HGB Conc 29.9 g/dL (31.5-36.5); Mean Corpuscular Volume 107 fL (80-100); Mean Platelet Volume 11.9 fL (9.1-12.4); NEUTROPHILS ABSOLUTE AUTO 4.68 K/mm3 (1.96-9.15); NEUTROPHILS PERCENT AUTO 69 % (41-73); NRBC ABSOLUTE 0.02 K/mm3 (0.00-0.02); NRBC Auto 0.3 /100 WBC (0.0-0.2); Platelet Count 169 K/mm3 (150-400); RDW Coefficient Variation 16.4 % (11.7-14.2); RDW Standard Deviation 65.1 fL (35.1-46.3); Red Blood Cell Count 3.94 M/mm3 (3.80-5.20); White Blood Cell Count 6.82 K/mm3 (4.00-11.30)
[2021-06-10 15:50] LABS: Albumin, Blood 3.4 g/dL (3.4-5.0); Albumin/Globulin Ratio 0.7 (0.8-1.8); Bun/Creatinine Ratio 18.5 (12.0-20.0); Calcium, Blood 8.9 mg/dL (8.5-10.1); Creatinine, Blood 1.24 mg/dL (0.40-1.00); Potassium, Blood 4.5 mmol/L (3.5-5.5); Total Protein, Blood 8.4 g/dL (6.4-8.2)
[2021-06-10 16:38] LABS: Influenza A, PCR NEGATIVE (NEGATIVE); Influenza B, PCR NEGATIVE (NEGATIVE); Resp Syncytial Virus, PCR NEGATIVE (NEGATIVE); SARS-Cov-2 (COVID-19) PCR, MMC NEGATIVE (NEGATIVE)
--- NOTE | 2021-06-10 18:00 | NUR ---
ADMIT: Patient arrived from the ED to PCU 07 via gurney, she was slid with 4 person assist to bed. She is alert and oriented. She c/o some lower back pain, this is alleviated with raising the HOB. HR irreg, A-Fib in the 90s. LS DIM T/O, biox 93 % on bi-pap settings 12/5 fio2 40%. bt hypoactive, pt states she had a BM yesterday. PPP. Patient has discoloration to BLE, she states this is due to chronic PVD, pics taken-see chart. Son and caregiver at bedside to assist in the completion of the history. JAVIER 80, notified-see new orders. Patient oriented to room and call JESSICA bean.
[2021-06-10 18:06] LABS: Source, Urine Foley catheter
[2021-06-10 18:09] LABS: Bilirubin, Urine Neg (Neg); Blood, Urine Neg (Neg); Glucose Qualitative, Urine 3+ (Neg); Ketones, Urine Neg (Neg); Leukocyte Esterase, Urine Neg (Neg); Nitrite, Urine Neg (Neg); Protein, Urine Neg (Neg); Urobilinogen, Urine NORM (Normal)
[2021-06-10 18:45] LABS: Appearance, Urine Clear (Clear); Color, Urine Pale Yellow (P-Yellow)
[2021-06-10 19:56] LABS: CPK Creatine Kinase 125 U/L (26-193)
--- NOTE | 2021-06-10 23:59 | NUR ---
HYPERTENSION CALL PLACED TO HOSPITALIST REGARDING PRN HYDRALAZINE. DUE TO HOSPITAL SHORTAGE, HYDRALIZINE IS NOT AVAILABLE. ORDER RECIEVED FOR LABETOLOL PRN FOR EPISODES OF HYPERTENSION. SYSTOLIC BP 180s. MEDICATED PER EMAR FOR HYPERTENSION.
[2021-06-11 03:45] LABS: BASOPHILS ABSOLUTE AUTO 0.03 K/mm3 (0.00-0.23); BASOPHILS PERCENT AUTO 0 % (0-2); EOSINOPHILS ABSOLUTE AUTO 0.11 K/mm3 (0.00-0.68); EOSINOPHILS PERCENT AUTO 1 % (0-6); Hematocrit 39.3 % (33.0-51.0); Hemoglobin 11.8 g/dL (11.5-16.0); IMMATURE GRAN ABSOLUTE AUTO 0.02 K/mm3 (0.00-0.10); IMMATURE GRAN PERCENT AUTO 0 % (0-1); LYMPHOCYTES ABSOLUTE AUTO 1.75 K/mm3 (0.84-5.20); LYMPHOCYTES PERCENT AUTO 22 % (21-46); MONOCYTES ABSOLUTE AUTO 0.86 K/mm3 (0.16-1.47); MONOCYTES PERCENT AUTO 11 % (4-13); Mean Corpuscular HGB 32.4 pg (26.0-34.0); Mean Corpuscular Volume 108 fL (80-100); Mean Platelet Volume 11.9 fL (9.1-12.4); NEUTROPHILS ABSOLUTE AUTO 5.19 K/mm3 (1.96-9.15); NEUTROPHILS PERCENT AUTO 65 % (41-73); Platelet Count 169 K/mm3 (150-400); RDW Coefficient Variation 16.2 % (11.7-14.2); RDW Standard Deviation 63.5 fL (35.1-46.3); Red Blood Cell Count 3.64 M/mm3 (3.80-5.20); White Blood Cell Count 7.96 K/mm3 (4.00-11.30)
[2021-06-11 04:20] LABS: Albumin, Blood 3.2 g/dL (3.4-5.0); Albumin/Globulin Ratio 0.7 (0.8-1.8); Bilirubin, Total 0.8 mg/dL (0.1-1.0); Calcium, Blood 8.9 mg/dL (8.5-10.1); Creatinine, Blood 1.15 mg/dL (0.40-1.00); Globulin, Blood 4.5 g/dL (2.2-4.0); Potassium, Blood 3.7 mmol/L (3.5-5.5); Total Protein, Blood 7.7 g/dL (6.4-8.2)
--- NOTE | 2021-06-11 06:04 | NUR ---
SHIFT SUMMARY PATIENT ALERT AND ORIENTED x4. ABLE TO MAKE NEEDS KNOWN TO STAFF. VSS WITH PERIODS OF HTN, MEDICATED PER EMAR. PATIENT ON BIPAP FOR MOST OF SHIFT, SETTINGS AT 12/5 40% FIO2 WITH O2 SAT MAINTAINING LOW TO MID 90s. PATIENT TOLERATING SHORT BREAKS FROM BIPAP WITH 3-[address] IN [address] DRAINING DARK YELLOW URINE WITH SOME SEDIMENT. GLUCOSE OF 64 ON AM LABS, ORANGE JUICE AND YOGURT GIVEN TO PATIENT, BUMPED GLUCOSE TO 79 AT 0520. NO OTHER SIGNIFICANT CHANGES, WILL REPORT TO DAY SHIFT RN.
--- NOTE | 2021-06-11 07:30 | NUR ---
Initial Assessment: Patient is awake sitting on the edge of the bed. She is alert and oriented. She reports 6/10 lower back pain and 9/10 ble pain, the patient states her back feels better after sitting up. She also states her feet are less painful when she has them dangling. HR Irreg, A-fib in the 90s. LS DIM T/O, biox low 90s on 5L oxygen via NC. BT Hypoactive. PPP. Patient has a red/purple discoloration to feet and dry macias skin to bilat shins-pt states this is chronic. She states she does not have much feeling to her hands and her feet. VSS. AM meds given. Patient was able to stand and pivot to recliner. She denies further needs at this time. Call light in reach, MARQUISE.
--- NOTE | 2021-06-11 14:45 | NUR ---
UPDATE: Patient was assisted back to bed earlier and was able to take a nap for a little bit with the bi-pap on. I was rounding and found her pulling at her mask asking to have it removed, she was placed on NC at 4L. About 10-15 min after the bi-pap was removed the son came out into the hallway and stated the patient was confused. Upon entry to the room she was lethargic. Her lips cyanotic. She was oriented to family only. She seemed to be having a difficult time finding her words. She was also having difficulty following direction. When attempting to have her smile a slight left facial droop was noted. Blood pressure a little high. CBG 177. Dr. hamm called to notify him of changes, see new orders.
[2021-06-11 15:17] LABS: Base Excess Venous 18.6 mmol/L; Bicarbonate Venous 39.9 mmol/L (24.0-30.0); PCO2 Venous 58.8 mmHg (38-42); PO2 Venous 81.4 mmHg (38-42); pH Blood Venous 7.47 (7.34-7.37)
--- NOTE | 2021-06-11 16:52 | NUR ---
Patient's son, Ricco, is sitting in the hallway outside pt's rm and explains about pt is having an echogram at this time and he is feeling very anxious. He tells me that he is wearing a heart monitor and is probably "making it spark right now." I provide a calming presence, therapeutic listening and prayer. Ricco responds well and shows signs of increased peace. I will continue to remain available to patient and family.
--- NOTE | 2021-06-11 17:31 | NUR ---
SUMMARY: Patient was alert and oriented t/o the majority of my shift. She had some mental status changes at 1445 after a nap, head CT and VBG complete. MS changes resolved a couple of hours after presentation. The patient has C/O pain in her lower back, feet, and ribs. Pain was relieved by position changes, pt was also medicated with Tylenol x1. HR irreg, A-Fib in the 90s, ECHO done but has not been read by cardiology. LS Dim T/O, biox 95% on 4-5L when off the [id number] 12/5 FIO2 40%. BT Hypoactive, pt did not have a BM today. She has a bryant cath, patent and draining dark yellow urine. PPP. She has some discoloration with dry scaly skin to BLE-pt states this is chronic. CHUX beneath feet due to weeping. Patient is currently sitting up on the edge of the bed eating dinner. She denies needs at this time, WCTM. Will report to oncoming RN.
--- NOTE | 2021-06-11 23:03 | NUR ---
Assumed care of pt at 1900. A/Ox4. Sitting on side of bed. Pt reports 6/10 abdominal pain, that she considers chronic in nature. Maintains mid 90's on 4L NC, with bipap at HS 12/5 40%. LS upper fine crackles and dim at bases. Patient at times is tachypneic. Blue tinge to lips noted. Afib on tele avg 90's, although flips in an out of afib. Faint pulses t/o, with doppler needed for pedals. 2+ pitting/weeping edema ble, and nonpitting generalized edema t/o. Large hernia noted in abdomen, hypoactive bowel sounds, and painful. Denies N/V. Urinary cath draining franchesca urine with sediment and small blood clots. Marrero securement was moved closer to the urethra to prevent pulling. Both ble shins down are red, very dry, with open areas that are weeping. Feet are extremely red with cap refill over 3 seconds, was able to doppler pulses. Skin tear under L leg covered with nonadherent pad. Will update as changes occur.
[2021-06-12 04:15] LABS: Hematocrit 40.3 % (33.0-51.0); Mean Corpuscular HGB 31.6 pg (26.0-34.0); Mean Corpuscular HGB Conc 29.8 g/dL (31.5-36.5); Mean Corpuscular Volume 106 fL (80-100); Mean Platelet Volume 11.9 fL (9.1-12.4); Platelet Count 170 K/mm3 (150-400); RDW Coefficient Variation 16.1 % (11.7-14.2); RDW Standard Deviation 63.3 fL (35.1-46.3)
[2021-06-12 04:49] LABS: Bun/Creatinine Ratio 17.7 (12.0-20.0); Calcium, Blood 9.1 mg/dL (8.5-10.1); Creatinine, Blood 1.13 mg/dL (0.40-1.00); Potassium, Blood 3.5 mmol/L (3.5-5.5); Thyroid Stimulating Hormone 5.06 uIU/mL (0.360-4.800); Thyroxine (T4) 10.1 ug/dL (4.8-13.9)
--- NOTE | 2021-06-12 05:00 | NUR ---
CBG FOR 2015 WAS 154. CBG MACHINE HAS NOT TRANSMITTED THIS ACROSS TO THE CHART.
--- NOTE | 2021-06-12 13:57 | NUR ---
Patient is sitting on a chair and alert. Patient talks about her medical issues and her concerns about her son and his medical issues. She then talks at length about her be and her be community ([facility] She explains about the strength she finds from her prayers and conversations she has with folks who share her same beliefs. I provide therapeutic listening, spiritual dialogue and prayer. Patient responds well and shows signs of being encouraged in her be. I will continue to assist patient in dealing with the emotional/spiritual aspects of dealing with illness and limitations.
--- NOTE | 2021-06-12 15:13 | NUR ---
UPDATE REPORT GIVEN TO COSTA HIRSCH TO ASSUME CARE
--- NOTE | 2021-06-12 15:33 | NUR ---
ASSUMPTION OF CARE REPORT RECEIVED FROM PEDRO ORTIZ RN.
--- NOTE | 2021-06-12 17:31 | NUR ---
SHIFT SUMMARY PT HAS BEEN RESTING IN ROOM. PT WAS ON CPAP WITH A 3L BLEED WHEN THIS RN ASSUMED CARE, SPO2 87-90%, OXYGEN WAS TITRATED TO 4L AND SPO2 WAS 89-92%. PT TOLERATED THIS WELL. UPON WAKING UP FROM A NAP, PT WAS INITIALLY CONFUSED. PT WAS EASILY REORIENTABLE AND WAS THEN TRANSITIONED TO NC AT 4L, SPO2 90-94%. PT SAT UP AT BEDISDE WITHOUT ASSISTANCE FOR DINNER. VITAL SIGNS STABLE.
--- NOTE | 2021-06-12 20:17 | NUR ---
Assumed care of pt at 1900. Pt was laying on L side in bed with home CPAP with 4L bleed in, satting at 89%. Denies any pain, CP/pressure, VSS. Will update as changes occur.
--- NOTE | 2021-06-12 21:34 | NUR ---
Gave report to JOYCELYN Nix who will be pts nurse for the rest of the night.
[2021-06-13 03:44] LABS: Base Excess Venous 21.6 mmol/L; Bicarbonate Venous 41.1 mmol/L (24.0-30.0); PCO2 Venous 71.2 mmHg (38-42); PO2 Venous 30.3 mmHg (38-42); pH Blood Venous 7.42 (7.34-7.37)
[2021-06-13 04:22] LABS: Calcium, Blood 9.3 mg/dL (8.5-10.1); Creatinine, Blood 0.95 mg/dL (0.40-1.00); Potassium, Blood 3.4 mmol/L (3.5-5.5)
--- NOTE | 2021-06-13 05:51 | NUR ---
NO ACUTE EVENTS OVERNIGHT. PT WAS AWAKE FOR MOST OF THE NIGHT, SLEEPING JUST 3 HOURS. NO COMPLAINTS OR RESTLESSNESS, SIMPLY STATED THAT SHE WASN'T THAT TIRED. PT REPORTS SOME CHRONIC BACK PAIN BUT DENIED NEED FOR ANALGESIC, SHE DID ACHEIVE SOME RELIEF WITH REPOSITIONING TO DANGLE POSITION AT SIDE OF BED. SUPPLEMENTAL OXYGEN REDUCED FROM 4 LPM NC TO 3 LPM NC, MAINTAINING SpO2 OF 93% AND GREATER ON 3 LPM NC. PARTIAL BED BATH GIVEN AND MICONAZOLE POWDER APPLIED UNDER BOTH BREASTS, UNDER PANUS AND IN BILATERAL GROINS.
[2021-06-13] MEDS ORDERED: LOSA50 PO (13:36)
[2021-06-13] MEDS ORDERED: TORSE20 PO (13:36)
--- NOTE | 2021-06-13 15:15 | NUR ---
SHIFT SUMMARY; ASSUMED CARE AT 0700. SITTING IN RECLINER, 02 AT 4L VIA NC. A/A/OX4. NAVA REMOVED TODAY, POST NAVA VOID WITHOUT DIFFICULTY. HOME O2 EVAL COMPLETE. HOME O2 DELIVERED BY [facility]. VERBAL AND WRITTEN DISCHARGE INSRUCTIONS GIVEN WITH CLEAR UNDERSTANDING. IV REMOVED. DC'D TO HOME VIA WHEELCHAIR.
== END 2021-06-13 15:42 | disposition home or self-care (01) | DRG 291 ==
LOC: ER 14:57 → PCU 18:38
PROVIDERS: Emergency Medicine; Internal Medicine; ADMIT Internal Medicine
PROC: 5A09357 Assistance with Respiratory Ventilation, Less than 24 Consecutive Hours, Continuous Positive Airway Pressure (ICD-10-PCS; principal; 2021-06-10)
DX: I11.0 Hypertensive heart disease with heart failure (principal); J96.22 Acute and chronic respiratory failure with hypercapnia; J96.21 Acute and chronic respiratory failure with hypoxia; I50.33 Acute on chronic diastolic (congestive) heart failure; Z68.42 Body mass index [BMI] 45.0-49.9, adult; N17.9 Acute kidney failure, unspecified; Z20.822 Contact with and (suspected) exposure to COVID-19; Z28.21 Immunization not carried out because of patient refusal; E11.9 Type 2 diabetes mellitus without complications; E66.9 Obesity, unspecified; J44.9 Chronic obstructive pulmonary disease, unspecified; E87.6 Hypokalemia; G47.30 Sleep apnea, unspecified; I27.20 Pulmonary hypertension, unspecified; I48.91 Unspecified atrial fibrillation; K21.9 Gastro-esophageal reflux disease without esophagitis; I16.0 Hypertensive urgency; Z86.711 Personal history of pulmonary embolism; Z90.49 Acquired absence of other specified parts of digestive tract; Z90.89 Acquired absence of other organs; Z98.51 Tubal ligation status; Z98.890 Other specified postprocedural states; Z99.89 Dependence on other enabling machines and devices; Z99.3 Dependence on wheelchair; Z88.5 Allergy status to narcotic agent; Z79.01 Long term (current) use of anticoagulants; Z79.84 Long term (current) use of oral hypoglycemic drugs; Z79.899 Other long term (current) drug therapy
CPT/HCPCS: 0241U; 36415; 51702; 70450; 71045; 80048; 80053; 81003; 82550; 82803; 82947; 83880; 84145; 84436; 84443; 84484; 85025; 85027; 93005; 93010; 94660; 94760; 94761; 94762; 96374; 99285-25; A9270; C8929; J1940; Q9957

== ENCOUNTER 2021-06-25 16:52 | Inpatient (IN) | payer MEDICARE, OTHER ==
[~2021-06-25] VITALS: Ht 172.7 cm; Wt 140.9 kg
[~2021-06-25 16:52] MED LIST changes: -B-121000 MC2 PO; +B-121000 MC7 PO; -CHOL10002 PO; -CVS GLUCOSAMN-1 EACH PO; +LOSA50 PO; +TORSE20 PO; +VITAMIN D31000 UNI1 PO; +[UNRECOGNIZED DRUG - CODE] PO
[2021-06-25 17:27] LABS: BASOPHILS ABSOLUTE AUTO 0.03 K/mm3 (0.00-0.23); BASOPHILS PERCENT AUTO 1 % (0-2); EOSINOPHILS ABSOLUTE AUTO 0.07 K/mm3 (0.00-0.68); EOSINOPHILS PERCENT AUTO 1 % (0-6); Hematocrit 42.9 % (33.0-51.0); Hemoglobin 12.6 g/dL (11.5-16.0); IMMATURE GRAN ABSOLUTE AUTO 0.03 K/mm3 (0.00-0.10); IMMATURE GRAN PERCENT AUTO 1 % (0-1); LYMPHOCYTES ABSOLUTE AUTO 1.07 K/mm3 (0.84-5.20); LYMPHOCYTES PERCENT AUTO 17 % (21-46); MONOCYTES ABSOLUTE AUTO 0.47 K/mm3 (0.16-1.47); MONOCYTES PERCENT AUTO 7 % (4-13); Mean Corpuscular HGB 31.2 pg (26.0-34.0); Mean Corpuscular HGB Conc 29.4 g/dL (31.5-36.5); Mean Corpuscular Volume 106 fL (80-100); Mean Platelet Volume 11.9 fL (9.1-12.4); NEUTROPHILS ABSOLUTE AUTO 4.68 K/mm3 (1.96-9.15); NEUTROPHILS PERCENT AUTO 74 % (41-73); Platelet Count 146 K/mm3 (150-400); RDW Coefficient Variation 15.8 % (11.7-14.2); RDW Standard Deviation 61.9 fL (35.1-46.3); Red Blood Cell Count 4.04 M/mm3 (3.80-5.20); White Blood Cell Count 6.35 K/mm3 (4.00-11.30)
[2021-06-25 17:32] LABS: Base Excess Venous 11.7 mmol/L; Bicarbonate Venous 32.5 mmol/L (24.0-30.0); PCO2 Venous 72.1 mmHg (38-42); PO2 Venous 57.1 mmHg (38-42); pH Blood Venous 7.33 (7.34-7.37)
[2021-06-25 17:50] LABS: Albumin, Blood 3.2 g/dL (3.4-5.0); Albumin/Globulin Ratio 0.6 (0.8-1.8); Bilirubin, Total 0.7 mg/dL (0.1-1.0); Calcium, Blood 8.8 mg/dL (8.5-10.1); Globulin, Blood 5.2 g/dL (2.2-4.0); Potassium, Blood 4.6 mmol/L (3.5-5.5); Total Protein, Blood 8.4 g/dL (6.4-8.2)
[2021-06-26 05:24] LABS: BASOPHILS ABSOLUTE AUTO 0.03 K/mm3 (0.00-0.23); BASOPHILS PERCENT AUTO 0 % (0-2); EOSINOPHILS ABSOLUTE AUTO 0.12 K/mm3 (0.00-0.68); EOSINOPHILS PERCENT AUTO 2 % (0-6); Hematocrit 39.6 % (33.0-51.0); Hemoglobin 11.6 g/dL (11.5-16.0); IMMATURE GRAN ABSOLUTE AUTO 0.02 K/mm3 (0.00-0.10); IMMATURE GRAN PERCENT AUTO 0 % (0-1); LYMPHOCYTES ABSOLUTE AUTO 1.43 K/mm3 (0.84-5.20); LYMPHOCYTES PERCENT AUTO 21 % (21-46); MONOCYTES ABSOLUTE AUTO 0.64 K/mm3 (0.16-1.47); MONOCYTES PERCENT AUTO 9 % (4-13); Mean Corpuscular HGB 30.9 pg (26.0-34.0); Mean Corpuscular HGB Conc 29.3 g/dL (31.5-36.5); Mean Corpuscular Volume 106 fL (80-100); Mean Platelet Volume 11.8 fL (9.1-12.4); NEUTROPHILS PERCENT AUTO 68 % (41-73); Platelet Count 139 K/mm3 (150-400); RDW Coefficient Variation 15.7 % (11.7-14.2); RDW Standard Deviation 60.5 fL (35.1-46.3); Red Blood Cell Count 3.75 M/mm3 (3.80-5.20); White Blood Cell Count 6.94 K/mm3 (4.00-11.30)
[2021-06-26 05:56] LABS: Anion Gap 6 mmol/L (6-16); Blood Urea Nitrogen 17 mg/dL (8-24); Bun/Creatinine Ratio 17.2 (12.0-20.0); CO2, Blood 36 mmol/L (21-32); Chloride, Blood 102 mmol/L (98-108); Creatinine, Blood 0.99 mg/dL (0.40-1.00); Glomerular Filtration Rate 55 (60-); Glucose, Blood 111 mg/dL (70-99); Phosphorus, Blood 4.5 mg/dL (2.5-4.9); Potassium, Blood 3.7 mmol/L (3.5-5.5); Sodium, Blood 144 mmol/L (136-145)
--- NOTE | 2021-06-26 06:00 | NUR ---
SHIFT SUMMARY PATIENT ALERT AND ORIENTED. HAD NO COMPLAINTS OF PAIN. IS DYSPNIC UPON EXERTION. ABLE TO STAND AND PIVOT TO BEDSIDE COMMODE WITH 1 ASSIST. NO ACUTE ISSUES NOTED OVERNIGHT. CALL LIGHT WITHIN REACH. REPORT GIVEN TO ONCOMING RN.
[2021-06-26 12:46] LABS: International Normalized Ratio 1.21; Prothrombin Time Results 12.5 Sec (9.7-11.5)
--- NOTE | 2021-06-26 18:48 | NUR ---
SHIFT SUMMARY PT AXO, PLEASANT AND COOPERATIVE WITH CARE. VSS. ON 5L VIA NC O2 SAT RANGING FROM 94-100%. SOB WITH EXERTION AND DISCUSSION. POWERGLIDE PLACED THIS SHIFT AND HEPARIN STARTED AND RUNNING PER ORDERS. PT DENIES PAIN AND NV. NO OTHER CHANGES THIS SHIFT. BED IN LOW POSITION, CALL LIGHT WITHIN REACH. PHOTO OF WOUND TO LLE IN CHART AND WOUND DRESSING CHANGED.
[2021-06-27 05:37] LABS: BASOPHILS ABSOLUTE AUTO 0.02 K/mm3 (0.00-0.23); BASOPHILS PERCENT AUTO 0 % (0-2); EOSINOPHILS ABSOLUTE AUTO 0.12 K/mm3 (0.00-0.68); EOSINOPHILS PERCENT AUTO 2 % (0-6); Hematocrit 39.7 % (33.0-51.0); IMMATURE GRAN ABSOLUTE AUTO 0.02 K/mm3 (0.00-0.10); IMMATURE GRAN PERCENT AUTO 0 % (0-1); LYMPHOCYTES ABSOLUTE AUTO 1.27 K/mm3 (0.84-5.20); LYMPHOCYTES PERCENT AUTO 19 % (21-46); MONOCYTES ABSOLUTE AUTO 0.44 K/mm3 (0.16-1.47); MONOCYTES PERCENT AUTO 7 % (4-13); Mean Corpuscular HGB 31.7 pg (26.0-34.0); Mean Corpuscular HGB Conc 30.2 g/dL (31.5-36.5); Mean Corpuscular Volume 105 fL (80-100); NEUTROPHILS ABSOLUTE AUTO 4.66 K/mm3 (1.96-9.15); NEUTROPHILS PERCENT AUTO 72 % (41-73); Platelet Count 149 K/mm3 (150-400); RDW Coefficient Variation 15.6 % (11.7-14.2); RDW Standard Deviation 59.3 fL (35.1-46.3); Red Blood Cell Count 3.79 M/mm3 (3.80-5.20); White Blood Cell Count 6.53 K/mm3 (4.00-11.30)
[2021-06-27 06:47] LABS: Bun/Creatinine Ratio 19.1 (12.0-20.0); Calcium, Blood 8.7 mg/dL (8.5-10.1); Potassium, Blood 3.8 mmol/L (3.5-5.5)
--- NOTE | 2021-06-27 07:31 | NUR ---
NURSE NOTE: HEPARIN DRIP 2 RN CHECK: SETH SUMMERS RN 39.9 ML/HR 21 UNITS/KG/HR
--- NOTE | 2021-06-27 08:00 | NUR ---
SHIFT SUMMARY: PT A/O X4, VERY RESTLESS TONIGHT. DID NOT APPEAR TO GET MUCH SLEEP, PT CONTINUED TO REQUEST TO SIT ON EDGE OF BED OR IN CHAIR- REPORTED FEELING BETTER BREATHING IN HIGH POSITION. 5L 02 NASAL CANNULA CONTINUED THROUGHOUT THE NIGHT- CPAP USED FOR SHORT PERIOD AND THEN TRANSITIONED BACK TO NASAL CANNULA. HEPARIN DRIP RUNNING- EMAR REVIEW POWERGLIDE IV FLUSHING APPROPRIATELY BUT DOES NOT DRAW BACK BLOOD. BED IN LOW POSTION, CALL BEAL IN REACH.
--- NOTE | 2021-06-27 13:00 | NUR ---
RADIOLOGY CONTACTED ME MCIHAEL [facility] REPORTS MORE THAN THREE HOURS OFF PRESCRIBED HEPARIN DRIP IS PREFFERED PRIOR TO THORACENTESIS. RADIOLOGIST SUGGESTS THAT IMAGING SUGGESTS MORE LIKELY FLUID OVERLOAD/PULMONARY EDEMA, W/ MILD PLURAL EFFUSION- MAY NOT REQUIRE THORACENTESIS. PLAN TO CALL DR. LENZ AND PROVIDE RADIOLOGIST NAME AND PHONE NUMBER FOR FURTHER PLANNING.
--- NOTE | 2021-06-27 18:44 | NUR ---
SHIFT SUMMARY PT A&O X4 AND IN PLEASENT MOOD T/O SHIFT. SON @ BEDSIDE T/O MOST OF SHIFT. DRESSING TO L CALF CHANGED THIS SHIFT, CDI. PT UP TO BSC SEVERAL TIMES T/O SHIFT, LASIX ADDMINISTERED PER ORDERS. 5L NC, PT 5L @ BASELINE. LIPS APPEAR PURPLE T/O SHIFT, PT STATES THIS IS BASELINE. VSS. CALL LIGHT W/IN REACH. TELE IN PLACE, AFIB.
--- NOTE | 2021-06-27 19:07 | NUR ---
2 RN HEPARIN DRIP VARIFICATON WITH SETH SUMMERS RN- 21 UNITS/KG/HOUR 39.9ML/HR
--- NOTE | 2021-06-27 20:40 | NUR ---
NURSE NOTE: CRITICAL LAB NOTIFICATION: ALONZO HADDAD NOTIFIED OF CRITICAL LAB VALUE APTT 104.3. ASKED IF IT WAS APPROPRIATE TO CONTINUE HEPARIN DRIP SINCE THORACENTESIS WAS DISCONTINUED, REPORTED HE WILL LOOK AT PATIENT CHART AND INFORM IF WE NEED TO STOP HEPARIN DRIP. AWARE OF CRITICAL LAB VALUE NO NEW INTERVENTIONS FROM MD- REQUESTED TO FOLLOW PHARMACY DIRECTION ON HOW TO MANAGE HEPARIN DRIP. PHARMACY CONTACTED-PLAN TO DECREASE RATE- WILL PUT IN ORDERS (REVIEW EMAR)
--- NOTE | 2021-06-28 03:34 | NUR ---
SHIFT SUMMARY: PT REMAINS A/OX4- CALLS APPROPRIATELY. 5L O2 NASAL CANNULA, USES CPAP AT REST. STAND BY ASSIST, TURN AND PIVOT TO RECLINER & BEDSIDE COMMODE. BED ALARM ACTIVATED WHEN IN BED, BED IN LOW POSITION, NO ATTEMPTS TO GET OUT OF BED ALONE. CALL BEAL IN REACH, PERSONAL BELONGINGS IN REACH.
[2021-06-28 04:09] LABS: BASOPHILS ABSOLUTE AUTO 0.02 K/mm3 (0.00-0.23); BASOPHILS PERCENT AUTO 0 % (0-2); EOSINOPHILS ABSOLUTE AUTO 0.14 K/mm3 (0.00-0.68); EOSINOPHILS PERCENT AUTO 2 % (0-6); Hematocrit 38.1 % (33.0-51.0); Hemoglobin 11.2 g/dL (11.5-16.0); IMMATURE GRAN ABSOLUTE AUTO 0.02 K/mm3 (0.00-0.10); IMMATURE GRAN PERCENT AUTO 0 % (0-1); LYMPHOCYTES ABSOLUTE AUTO 1.34 K/mm3 (0.84-5.20); LYMPHOCYTES PERCENT AUTO 23 % (21-46); MONOCYTES ABSOLUTE AUTO 0.55 K/mm3 (0.16-1.47); MONOCYTES PERCENT AUTO 9 % (4-13); Mean Corpuscular HGB 30.6 pg (26.0-34.0); Mean Corpuscular HGB Conc 29.4 g/dL (31.5-36.5); Mean Corpuscular Volume 104 fL (80-100); Mean Platelet Volume 12.3 fL (9.1-12.4); NEUTROPHILS ABSOLUTE AUTO 3.77 K/mm3 (1.96-9.15); NEUTROPHILS PERCENT AUTO 65 % (41-73); Platelet Count 143 K/mm3 (150-400); RDW Coefficient Variation 15.3 % (11.7-14.2); RDW Standard Deviation 58.6 fL (35.1-46.3); Red Blood Cell Count 3.66 M/mm3 (3.80-5.20); White Blood Cell Count 5.84 K/mm3 (4.00-11.30)
[2021-06-28 04:23] LABS: Bun/Creatinine Ratio 19.6 (12.0-20.0); Calcium, Blood 8.4 mg/dL (8.5-10.1); Creatinine, Blood 1.02 mg/dL (0.40-1.00); Potassium, Blood 3.4 mmol/L (3.5-5.5)
[2021-06-28 04:30] LABS: Vancomycin, Trough <0.8 ug/mL (5.0-10.0)
--- NOTE | 2021-06-28 11:52 | NUR ---
MAURY PETERSON RN DOUBLE CHECKED DOSE ADJUST W/ THIS RN @ THIS TIME
[2021-06-28] MEDS ORDERED: TORSE20 PO (15:10)
--- NOTE | 2021-06-28 17:44 | NUR ---
DISCHARGE PT A&O X4 DURING DC. SON AND CAREGIVER @ BEDSIDE DURING DC DIRECTION. PT PROVIDED W/ WRITTEN AND VERBAL INSTRUCTION AND VERBALIZED UNDERSTANDING. MEDS FAXED INTO [facility] ON [address] PER PT REQUEST. MARY ANN DROPPED OFF PORTABLE OXYGEN AND PLANNED TO MEET @ HOME FOR CONCENTRATOR. POWERGLIDE, TELE, CONT. PULSE OX DC'ED. PT BELONGINGS IN TOW, ESCORTED OUT VIA BY TESSA CANNON TO [facility]. VSS. SON PROVIDING TRANSPORT.
== END 2021-06-28 17:41 | disposition home or self-care (01) | DRG 291 ==
LOC: ER 16:52 → MEDS 16:53
PROVIDERS: Family Medicine; Physician Assistant; ADMIT Hospitalist
DX: I11.0 Hypertensive heart disease with heart failure (principal); J96.21 Acute and chronic respiratory failure with hypoxia; I50.33 Acute on chronic diastolic (congestive) heart failure; E87.2 Acidosis; Z68.42 Body mass index [BMI] 45.0-49.9, adult; I48.91 Unspecified atrial fibrillation; E78.5 Hyperlipidemia, unspecified; G47.33 Obstructive sleep apnea (adult) (pediatric); I50.811 Acute right heart failure; E11.628 Type 2 diabetes mellitus with other skin complications; L97.529 Non-pressure chronic ulcer of other part of left foot with unspecified severity; I27.20 Pulmonary hypertension, unspecified; E03.9 Hypothyroidism, unspecified; K21.9 Gastro-esophageal reflux disease without esophagitis; E66.01 Morbid (severe) obesity due to excess calories; Z99.89 Dependence on other enabling machines and devices; Z86.718 Personal history of other venous thrombosis and embolism; Z99.3 Dependence on wheelchair; Z90.49 Acquired absence of other specified parts of digestive tract; Z90.89 Acquired absence of other organs; Z90.710 Acquired absence of both cervix and uterus; Z98.890 Other specified postprocedural states; Z87.891 Personal history of nicotine dependence; Z88.5 Allergy status to narcotic agent; Z79.84 Long term (current) use of oral hypoglycemic drugs; Z79.899 Other long term (current) drug therapy
CPT/HCPCS: 36415; 71045; 80048; 80053; 80069; 80202; 82803; 82947; 83880; 84484; 85025; 85610; 85730; 92610; 93005; 93010; 94640; 94660; 94664; 94762; 96374; 96375; 96376; 97110; 97162; 97530; 99285-25; A9270; C1751; G0378; J1644; J1940

== ENCOUNTER 2021-07-21 11:16 | Inpatient (IN) | payer MEDICARE, OTHER ==
[~2021-07-21] VITALS: Ht 172.7 cm; Wt 139.3 kg
[2021-07-21 12:37] LABS: Albumin, Blood 2.9 g/dL (3.4-5.0); Albumin/Globulin Ratio 0.6 (0.8-1.8); Bilirubin, Total 1.2 mg/dL (0.1-1.0); Calcium, Blood 8.8 mg/dL (8.5-10.1); Creatinine, Blood 0.94 mg/dL (0.40-1.00); Globulin, Blood 5.2 g/dL (2.2-4.0); Potassium, Blood 4.1 mmol/L (3.5-5.5); Total Protein, Blood 8.1 g/dL (6.4-8.2)
[2021-07-21 12:40] LABS: BASOPHILS ABSOLUTE AUTO 0.03 K/mm3 (0.00-0.23); BASOPHILS PERCENT AUTO 1 % (0-2); EOSINOPHILS ABSOLUTE AUTO 0.09 K/mm3 (0.00-0.68); EOSINOPHILS PERCENT AUTO 2 % (0-6); Hemoglobin 11.6 g/dL (11.5-16.0); IMMATURE GRAN ABSOLUTE AUTO 0.02 K/mm3 (0.00-0.10); IMMATURE GRAN PERCENT AUTO 0 % (0-1); LYMPHOCYTES ABSOLUTE AUTO 0.96 K/mm3 (0.84-5.20); LYMPHOCYTES PERCENT AUTO 16 % (21-46); MONOCYTES ABSOLUTE AUTO 0.53 K/mm3 (0.16-1.47); MONOCYTES PERCENT AUTO 9 % (4-13); Mean Corpuscular HGB 31.5 pg (26.0-34.0); Mean Corpuscular HGB Conc 29.7 g/dL (31.5-36.5); Mean Corpuscular Volume 106 fL (80-100); Mean Platelet Volume 12.1 fL (9.1-12.4); NEUTROPHILS ABSOLUTE AUTO 4.35 K/mm3 (1.96-9.15); NEUTROPHILS PERCENT AUTO 73 % (41-73); Platelet Count 129 K/mm3 (150-400); RDW Coefficient Variation 15.9 % (11.7-14.2); Red Blood Cell Count 3.68 M/mm3 (3.80-5.20); White Blood Cell Count 5.98 K/mm3 (4.00-11.30)
[2021-07-21 12:50] LABS: Base Excess Venous 19.6 mmol/L; Bicarbonate Venous 40.5 mmol/L (24.0-30.0); PCO2 Venous 71.9 mmHg (38-42); PO2 Venous 122 mmHg (38-42)
[2021-07-21 15:25] LABS: Source, Urine Foley catheter
[2021-07-21 15:38] LABS: Appearance, Urine Clear (Clear); Bilirubin, Urine Neg (Neg); Blood, Urine Neg (Neg); Color, Urine Yellow (P-Yellow); Glucose Qualitative, Urine 4+ (Neg); Ketones, Urine Neg (Neg); Leukocyte Esterase, Urine Neg (Neg); Nitrite, Urine Neg (Neg); Protein, Urine Neg (Neg); Specific Gravity, Urine 1.015 (1.003-1.022); Urobilinogen, Urine NORM (Normal)
--- NOTE | 2021-07-21 18:26 | NUR ---
UPDATE PT ARRIVED TO UNIT AT APPROXIMATELY 1715. PT ALERT AND ORINETED. O2 SATS LOW 80'S ON 15L OXYMIZER. RT CALLED AND PT CHANGED OVER TO BIPAP 02/26 15L BLEED IN. RR 20-26 AT THIS TIME. PT DENIES ANY PAIN. NAVA PATENT AND DRAINING CLEAR YELLOW. PT ORIENTED TO ROOM AND CALL LIGHT. PT ASKING ABOUT HOSPICE CARE. ATTEMPTED TO CALL PALLIATIVE CARE, BUT WILL HAVE TO REACH THEM IN THE AM. PT HAS QUESTIONS ABOUT COMFORT CARE. SON AT BEDSIDE AND UPDATED. WILL CONTINUE TO MONITOR AND REPORT TO ONCOMING RN
[2021-07-22 04:09] LABS: Blood Urea Nitrogen 14 mg/dL (8-24); Bun/Creatinine Ratio 15.2 (12.0-20.0); Calcium, Blood 8.7 mg/dL (8.5-10.1); Chloride, Blood 94 mmol/L (98-108); Creatinine, Blood 0.92 mg/dL (0.40-1.00); Glomerular Filtration Rate 59 (60-); Glucose, Blood 88 mg/dL (70-99); Potassium, Blood 3.7 mmol/L (3.5-5.5); Sodium, Blood 141 mmol/L (136-145)
[2021-07-22 04:19] LABS: Anion Gap Unable to Calculate mmol/L (6-16); CO2, Blood >45 mmol/L (21-32)
--- NOTE | 2021-07-22 05:43 | NUR ---
SHIFT SUMMARY PT ALERT AND ORIENTED THROUGHOUT SHIFT. VSS AND CONSISTENT THROUGHOUT SHIFT. PT ON BIPAP; O2 SATS >95%, PT DESATS UPON EXERTION. PT DENIES SOB. PT DENIES CHEST PAIN OR PRESSURE. NAVA CATHETER DRAINING TO GRAVITY. PT SAT UP AT AT BEDSIDE & DANGLED LEGS. PT STATED "HER LEGS WERE HURTING AND SITTING UP HELPS". PT TOLERATED SITTING AT BEDSIDE WELL. CRITICAL LAB REPORTED WITH CARBON DIOXIDE >45. PROVIDER NOTIFIED. NO NEW ORDERS. WILL CONTINUE TO MONITOR AND REPORT TO ONCOMING RN. PT IS SITTING UP IN BEDSIDE CHAIR AND RESTING.
--- NOTE | 2021-07-22 08:30 | NUR ---
ASSUMED CARE OF PATIENT AT 0700. PATIENT A&O X4. PATIENT SITTING UP IN CHAIR. RESP OF 20, O2 15L OXYMIZER WITH SPO2 OF 100%. PATIENT DENIES OF SOB. PATIENT REPORT OF CHRONIC PAIN BILATERAL LOWER EXTREMETIES AROUND 5 OUT OF 10 ON MUMERIC PAIN SCALE. OFFERED PAIN MEDICATION, BUT DECLINE AT THIS TIME. ASSISTED PATIENT WITH ADL'S. CALL LIGHT AND ICE WATER WITHIN PATIENT'S REACH. WILL CONTINUE TO MONITOR PATIENT THROUGHOUT THE SHIFT.
--- NOTE | 2021-07-22 12:39 | NUR ---
Spoke with Primary RN Laine and discussed case prior to visiting with Pt. Pt sitting in chair wearing CPAP. Son Alexx at bedside. Per Pt's request Primary RN placed nasal cannula in order for Pt to engage in conversation easier. Pt reports living at home with her son. She reports having 4 children (2 daughters, and 2 sons). Her children live in different states except Alexx. Pt reports at baseline Pt wears 4 L O2 and increases O2 when exerting herself. She reports being non ambulatory and uses power scooter to get around. Alexx does the cooking, cleaning, and lays out Pt's clothes. Pt has a caregiver that comes 3 times a week to assist with showers. Engaged in therapeutic discussion regarding advanced care planning. Pt reports having a discussion with admitting provider and learned quite a bit about her condition. Gentle education on disease process including trajectory of disease. Discussed the importance of routine conversations with PCP and having a plan in place when coming to the hospital becomes too burdensome for Pt. Discussed at somepoint hospice may be a topic of discussion and the importance of evaluating one's goals and values. Discussed completing a POLST with Pt in agreement. Educated on life sustaining measures including risk factors and implications of CPR. Discussed each section to complete and educated on choices. Assisted Pt in completing POLST per her request. Offered therapeutic listening and answered questions. Pt and son express appreciation and report no other concerns at this time. Palliative Care will obtain copy of POLST upon hospitalist signature.
[2021-07-22 14:21] LABS: Influenza A, PCR NEGATIVE (NEGATIVE); Influenza B, PCR NEGATIVE (NEGATIVE); Resp Syncytial Virus, PCR NEGATIVE (NEGATIVE); SARS-Cov-2 (COVID-19) PCR, MMC NEGATIVE (NEGATIVE)
--- NOTE | 2021-07-22 17:51 | NUR ---
SHIFT SUMMARY PATIENT HAS BEEN A&O X4 THROUGHOUT SHIFT. NO C/O OF CP OR ANY CHEST DISCOMFORT. VSS, RR RANGES 20-24 BPM & NO C/O OF SOB. ON BIPAP 10L BLEED IN WHEN RESTING IN BED WITH SPO2 97-99% AND ON OXYMIZER 15L WITH SPO2 99-100% WHEN SITTING UP IN CHAIR OR DANGLING ON EOB. PATIENT HAS BEEN TOLERATING WELL GOING BACK AND FORT USING BOTH DEVICES OFF AND ON. SON AND NIECE WERE ALTERNATING SPENDING TIME WITH PATIENT IN ROOM THROUGHOUT THE DAY. PATIENT REPORT OF DISCOMFORT BOTH BOTH ARMS AND LEGS. OFFERED PAIN MEDICATION, BUT PATIENT HAS BEEN DECLINING THROUGHOUT THE SHIFT. PALLIATIVE CARE EDUARDO RN SPOKE TO SON TODAY. COVID SWAB RESULT WERE NEGATIVE. PLAN TO HAVE PATIENT THORACENTECIS DONE TOMORROW 07/23. NAVA WAS DISCONTINUED TODAY AROUND 1400 AND HAS NOT VOIDED. TRIED TO USED THE [facility] BUT NO RESULT. PATIENT LYING IN BED AT THIS TIME. CALL LIGHT AND ICE WATER WITHIN REACH. WILL CONTINUE TO MONITOR PATIENT REMAINDER OF THE SHIFT AND GIVE REPORT TO ONCOMING RN.
[2021-07-23 04:27] LABS: BASOPHILS ABSOLUTE AUTO 0.02 K/mm3 (0.00-0.23); BASOPHILS PERCENT AUTO 0 % (0-2); EOSINOPHILS PERCENT AUTO 2 % (0-6); Hematocrit 35.2 % (33.0-51.0); Hemoglobin 10.1 g/dL (11.5-16.0); IMMATURE GRAN ABSOLUTE AUTO 0.02 K/mm3 (0.00-0.10); IMMATURE GRAN PERCENT AUTO 0 % (0-1); LYMPHOCYTES ABSOLUTE AUTO 1.19 K/mm3 (0.84-5.20); LYMPHOCYTES PERCENT AUTO 18 % (21-46); MONOCYTES ABSOLUTE AUTO 0.63 K/mm3 (0.16-1.47); MONOCYTES PERCENT AUTO 10 % (4-13); Mean Corpuscular HGB Conc 28.7 g/dL (31.5-36.5); Mean Corpuscular Volume 105 fL (80-100); Mean Platelet Volume 12.5 fL (9.1-12.4); NEUTROPHILS ABSOLUTE AUTO 4.54 K/mm3 (1.96-9.15); NEUTROPHILS PERCENT AUTO 70 % (41-73); Platelet Count 131 K/mm3 (150-400); RDW Coefficient Variation 15.9 % (11.7-14.2); RDW Standard Deviation 59.9 fL (35.1-46.3); Red Blood Cell Count 3.37 M/mm3 (3.80-5.20)
[2021-07-23 04:43] LABS: International Normalized Ratio 1.13; Prothrombin Time Results 11.8 Sec (9.7-11.5)
[2021-07-23 04:46] LABS: Albumin, Blood 2.6 g/dL (3.4-5.0); Albumin/Globulin Ratio 0.6 (0.8-1.8); Bilirubin, Total 1.1 mg/dL (0.1-1.0); Bun/Creatinine Ratio 17.3 (12.0-20.0); Calcium, Blood 8.4 mg/dL (8.5-10.1); Creatinine, Blood 0.98 mg/dL (0.40-1.00); Globulin, Blood 4.3 g/dL (2.2-4.0); Potassium, Blood 3.4 mmol/L (3.5-5.5); Total Protein, Blood 6.9 g/dL (6.4-8.2)
--- NOTE | 2021-07-23 05:06 | NUR ---
SHIFT SUMMARY PATIENT ALERT AND ORIENTED THROUGH THE NIGHT. 02 SATS 88-95% ON BIPAP 16/8, WITH 6-8L, TITRATED UP WHILE SLEEPING. SOB WITH EXERTION, LS COARSE TO DIMINISHED. HR A. FIB, BP STABLE. PATIENT UP TO BEDSIDE COMMODE FREQUENTLY THROUGH THE NIGHT URINATING, CLEAR YELLOW URINE. 1 PERSON ASSIST TO BSC. NO ACUTE CHANGES. CALL LIGHT IN REACH.
[2021-07-23 10:01] LABS: Automated BF RBC Count 0.009 M/mm3 (0-0); Automated BF WBC Count 0.134 K/mm3 (0-999); Body Fluid WBC Count 134 /mm3 (0-999); RBC Count, Body Fluid 9000 /mm3 (0-0)
[2021-07-23 10:06] LABS: Lactate Dehydrogenase, Body Fl 155 U/L; Protein, Body Fluid 3.9 g/dL
[2021-07-23 10:51] LABS: Appearance, Body Fluid Hazy (Clear); Color, Body Fluid Yellow (None-Yellow); Total Cell Count, Body Fluid 100
--- NOTE | 2021-07-23 13:14 | NUR ---
Spiritual care visit conducted. Patient is sitting on the EOB and alert. Pt's son, Ricco, is bedside. Pt tells me about the medical issues she has and the plan going forward. She explains about how exhausted she is and how she is trusting God's timing to take her home. She comments on the fact the she wonders why she is still her while she is so limited in her activity. Ricco and I explore many reasons her presence makes a difference and is valued. Ricco also shares about his ways of coping and dealing with mom's decline but also the joys of being her caregiver. We talk at length about their Evangelical belief system and the strength they gain from that be. I normalize pt's experience, reinforce helpful attitudes and beliefs, explore sources of meaning, purpose and value and provide theological insights and prayer. Pt and Ricco respond well and show signs of an elevated mood and greater peace in the moment and for the future. I will continue to remain available to patient and family.
--- NOTE | 2021-07-23 16:19 | NUR ---
DISCHARGE SUMMARY DISCHARGE INSTRUCTIONS DISCUSSED WITH PT AND PT'S SON. ALL BELONGINGS AND INSTRUCTIONS WERE IN THE POSSESSION OF PT'S SON AT TIME OF DISCHARGE. PT'S SON OFFERED QUESTIONS AND CONCERNS THAT WERE ADDRESSED TO SATISFACTION PRIOR TO DISCHARGE. PT WAS TRANSPORTED BY WHEELCHAIR TO PERSONAL VEHICLE. OXYGEN TANK WAS SENT HOME WITH PT. PT'S SON WAS INSTRUCTED IN PROPER USE AND CARE OF OXYGEN TANK, KNOWLEDGE WAS ASSESSED BY DEMONSTRATION.
== END 2021-07-23 16:03 | disposition home health service (06) | DRG 291 ==
LOC: ER 11:16 → PCU 16:54
PROVIDERS: Emergency Medicine; Nurse Practitioner Acute Care; Physician Assistant; ADMIT Internal Medicine
PROC: 0W993ZZ Drainage of Right Pleural Cavity, Percutaneous Approach (ICD-10-PCS; principal; 2021-07-23)
DX: I11.0 Hypertensive heart disease with heart failure (principal); J96.21 Acute and chronic respiratory failure with hypoxia; I50.33 Acute on chronic diastolic (congestive) heart failure; Z68.42 Body mass index [BMI] 45.0-49.9, adult; J91.8 Pleural effusion in other conditions classified elsewhere; E11.9 Type 2 diabetes mellitus without complications; J44.9 Chronic obstructive pulmonary disease, unspecified; Z51.5 Encounter for palliative care; E66.01 Morbid (severe) obesity due to excess calories; I48.91 Unspecified atrial fibrillation; I27.20 Pulmonary hypertension, unspecified; G47.33 Obstructive sleep apnea (adult) (pediatric); Z66 Do not resuscitate; E78.5 Hyperlipidemia, unspecified; Z20.822 Contact with and (suspected) exposure to COVID-19; E03.9 Hypothyroidism, unspecified; M19.90 Unspecified osteoarthritis, unspecified site; K21.9 Gastro-esophageal reflux disease without esophagitis; Z99.81 Dependence on supplemental oxygen; Z86.711 Personal history of pulmonary embolism; Z90.49 Acquired absence of other specified parts of digestive tract; Z90.710 Acquired absence of both cervix and uterus; Z98.51 Tubal ligation status; Z98.890 Other specified postprocedural states; Z90.89 Acquired absence of other organs; Z88.5 Allergy status to narcotic agent; Z79.01 Long term (current) use of anticoagulants; Z79.899 Other long term (current) drug therapy
CPT/HCPCS: 0241U; 32555; 36415; 51702; 71045; 80048; 80053; 81003; 82803; 82947; 83615; 83690; 83880; 84157; 84484; 85025; 85610; 89051; 93005; 93010; 94660; 94761; 94762; 96374; 99285-25; A9270; J1940

== ENCOUNTER 2021-09-30 09:28 | Inpatient (IN) | payer MEDICARE, OTHER ==
[~2021-09-30] VITALS: Ht 172.7 cm; Wt 125.0 kg
[2021-09-30] MEDS ORDERED: FARXIGA5 MG (09:48)
[2021-09-30] MEDS ORDERED: BUME1 PO (09:49)
[2021-09-30] MEDS ORDERED: TRULICITY0.75 MG/01 SC (09:50)
[2021-09-30 09:56] LABS: BASOPHILS ABSOLUTE AUTO 0.02 K/mm3 (0.00-0.23); BASOPHILS PERCENT AUTO 0 % (0-2); EOSINOPHILS ABSOLUTE AUTO 0.04 K/mm3 (0.00-0.68); EOSINOPHILS PERCENT AUTO 0 % (0-6); Hematocrit 33.3 % (33.0-51.0); Hemoglobin 10.2 g/dL (11.5-16.0); IMMATURE GRAN ABSOLUTE AUTO 0.06 K/mm3 (0.00-0.10); IMMATURE GRAN PERCENT AUTO 0 % (0-1); LYMPHOCYTES ABSOLUTE AUTO 0.69 K/mm3 (0.84-5.20); LYMPHOCYTES PERCENT AUTO 5 % (21-46); MONOCYTES ABSOLUTE AUTO 1.06 K/mm3 (0.16-1.47); MONOCYTES PERCENT AUTO 8 % (4-13); Mean Corpuscular HGB 29.6 pg (26.0-34.0); Mean Corpuscular HGB Conc 30.6 g/dL (31.5-36.5); Mean Corpuscular Volume 97 fL (80-100); Mean Platelet Volume 11.9 fL (9.1-12.4); NEUTROPHILS ABSOLUTE AUTO 12.08 K/mm3 (1.96-9.15); NEUTROPHILS PERCENT AUTO 87 % (41-73); NRBC ABSOLUTE 0.02 K/mm3 (0.00-0.02); NRBC Auto 0.1 /100 WBC (0.0-0.2); Platelet Count 170 K/mm3 (150-400); RDW Coefficient Variation 16.8 % (11.7-14.2); Red Blood Cell Count 3.45 M/mm3 (3.80-5.20); White Blood Cell Count 13.95 K/mm3 (4.00-11.30)
[2021-09-30 10:20] LABS: Albumin/Globulin Ratio 0.6 (0.8-1.8); Bilirubin, Direct 0.5 mg/dL (0.0-0.3); Bilirubin, Indirect 0.5 mg/dL (0.1-0.7); Bun/Creatinine Ratio 20.9 (12.0-20.0); Calcium, Blood 9.4 mg/dL (8.5-10.1); Creatinine, Blood 1.15 mg/dL (0.40-1.00); Globulin, Blood 4.9 g/dL (2.2-4.0); Potassium, Blood 3.4 mmol/L (3.5-5.5); Total Protein, Blood 7.9 g/dL (6.4-8.2)
[2021-09-30 10:23] LABS: PCO2 Arterial 52.4 mmHg (35-45); pH Blood Arterial 7.44 (7.35-7.45)
[2021-09-30 10:37] LABS: Influenza A, PCR NEGATIVE (NEGATIVE); Influenza B, PCR NEGATIVE (NEGATIVE); Resp Syncytial Virus, PCR NEGATIVE (NEGATIVE); SARS-Cov-2 (COVID-19) PCR, MMC NEGATIVE (NEGATIVE)
[2021-09-30 13:42] LABS: Percent Saturation 8.2 % (15.0-50.0)
[2021-09-30 13:59] LABS: Source, Urine Foley catheter
[2021-09-30 14:21] LABS: Appearance, Urine Clear (Clear); Bilirubin, Urine Neg (Neg); Blood, Urine Neg (Neg); Color, Urine Yellow (P-Yellow); Glucose Qualitative, Urine 4+ (Neg); Ketones, Urine Neg (Neg); Leukocyte Esterase, Urine Neg (Neg); Nitrite, Urine Neg (Neg); Protein, Urine Neg (Neg); Specific Gravity, Urine 1.015 (1.003-1.022); Urobilinogen, Urine NORM (Normal)
--- NOTE | 2021-09-30 17:15 | NUR ---
SHIFT SUMMARY PT REMAINS ALERT AND ORIENTED. BP STABLE. HR HAS BEEN AFIB 100'S. DILTIAZEM TITRATED OFF. O2 SATS >90% ON 7L OXYMIZER AT THIS TIME. PT ABLE TO TOLERATE BREAK FROM CPAP. NAVA CATHETER PLACED ON ADMISSION AND CLEAR YELLOW URINE DRAINING. PT ABLE TO SIT UP AT EDGE OF BED TO EAT. FAMILY UPDATED ON PLAN OF CARE. WILL CONTINUE TO MONITOR AND REPORT TO ONCOMING RN
[2021-10-01 05:42] LABS: Hematocrit 29.5 % (33.0-51.0); Mean Corpuscular HGB 29.4 pg (26.0-34.0); Mean Corpuscular HGB Conc 30.5 g/dL (31.5-36.5); Mean Corpuscular Volume 96 fL (80-100); Mean Platelet Volume 12.3 fL (9.1-12.4); Platelet Count 160 K/mm3 (150-400); RDW Coefficient Variation 17.1 % (11.7-14.2); RDW Standard Deviation 59.3 fL (35.1-46.3); Red Blood Cell Count 3.06 M/mm3 (3.80-5.20); White Blood Cell Count 18.92 K/mm3 (4.00-11.30)
--- NOTE | 2021-10-01 05:45 | NUR ---
SHIFT SUMMARY ASSUMED CARE OF PT AT 1900. PT IS A/OX4. HEART SOUNDS REGULAR, LUNG SOUNDS SOUNDS DIMINISHED AT THE BASES. PT REMAINED ON 4L OXYMIZER UNTIL NOC WHEN SHE WAS ON HER CPAP WITH 8L BLEED IN. PT HAS A NAVA DRAINING WITH GRAVITY. PT WAS A 1P SBA TO CHAIR, WHERE SHE SLEPT DURING THE NIGHT. PT ACUTE CHANGES DURING THE NIGHT. PT REMAINS ON 4L OXYMIZER WHILE WACHING TV.
[2021-10-01 05:58] LABS: Albumin, Blood 2.7 g/dL (3.4-5.0); Albumin/Globulin Ratio 0.5 (0.8-1.8); Bilirubin, Total 0.8 mg/dL (0.1-1.0); Bun/Creatinine Ratio 22.8 (12.0-20.0); Calcium, Blood 8.8 mg/dL (8.5-10.1); Creatinine, Blood 1.71 mg/dL (0.40-1.00); Globulin, Blood 5.1 g/dL (2.2-4.0); Magnesium, Blood 2.3 mg/dL (1.6-2.4); Potassium, Blood 4.4 mmol/L (3.5-5.5); Total Protein, Blood 7.8 g/dL (6.4-8.2)
[2021-10-01 06:21] LABS: BAND PERCENT MAN 19 % (0-8); BASOPHILS PERCENT MAN 0 % (0-2); EOSINOPHILS PERCENT MAN 0 % (0-6); LYMPHOCYTES ABSOLUTE MAN 0.94 K/mm3 (0.84-5.20); LYMPHOCYTES PERCENT MAN 5 % (21-46); METAMYELOCYTE ABSOLUTE MAN 0.18 K/mm3 (0.00-0.00); METAMYELOCYTE PERCENT MAN 1 % (0-0); MONOCYTES ABSOLUTE MAN 1.13 K/mm3 (0.16-1.47); MONOCYTES PERCENT MAN 6 % (4-13); NEUTROPHILS ABSOLUTE MAN 16.64 K/mm3 (1.96-9.15); SEG NEUTROPHILS PERCENT MAN 69 % (41-73); TOTAL CELLS COUNTED 100
--- NOTE | 2021-10-01 12:54 | NUR ---
HYPOTENSION RETURNS, PT A-SYMPTOMATIC, DR GAITAN IS CALLED, NEW ORDERS OBTAINED FOR MIDODRINE PO WHICH IS ADMINISTERED, WILL CONTINUE TO MONITOR BP. DR GAIATN ALSO UPDATED ABOUT CONTINUED HYPOGLYCEMIA, DR GAITAN WILL ASSESS WHEN HE ROUNDS ON PT TODAY FOR POSSIBLE CHANGES
--- NOTE | 2021-10-01 15:55 | NUR ---
DR GAITAN CONUSLTED ABOUT CONTINUED HYPOTENSION POST MIDODRINE ADMINISTRATION, NEW ORDERS OBTAINED FOR 500ML NS BOLUS, WILL UPDATE MD POST BOLUS, ORDER TO MAINTAIN BP >90 SYSTOLIC. PT ALSO C/O ABD PAIN AROUND HERNIA TO ABDOMEN, DR GAITAN ALSO UPDATED ON THIS AND HE IS PLACING ORDERS FOR CT W/O CONTRAST OF THE ABDOMEN
--- NOTE | 2021-10-01 17:44 | NUR ---
HYPOTENSION HAS IMPROVED WITH THE 500ML NS BOLUS. PT HAS RETURNED FROM IMAGING DR GAITAN CALLED SOON AFTER PT RETURNED WITH CT READ, PT MADE NPO AND CRIMPING PRESS OPERATOR NICOLE CALLED FROM [facility] FOR CONSULT. CRIMPING PRESS OPERATOR JANA FROM OR HAS CALLED FOR UPDATE, DR WOODS WILL BE IN SOON FOR CONSULT. PT IS UPDATED ON NPO STATUS AND CT RESULTS. ABD REMAINS TENDER TO PALPATION, BOWEL TONES HYPOACTIVE, WITH CONSTANT PAIN. BLOOD SUGARS REMAIN HIGH THIS SHIFT, NEW ORDERS PLACED BY DR GAITAN FOR LONG ACTING INSULIN THAT WILL BEGIN THIS EVENING. OTHERWISE PT SLEEPY T/O THE DAY, SHE IS A/O X3, BUT IS A VERY POOR HISTORIAN. OXYGEN NEEDS HAVE NOT CHANGED THIS SHIFT. NO BM, PT UNSURE IF SHE'S PASSED ANY GAS
--- NOTE | 2021-10-01 18:45 | NUR ---
DR WOODS IN FOR CONSULT, PT WILL GO THE OPERATING ROOM TONIGHT, PLAN TO ADMIT TO ICU POST SURGERY, PT EDUCATED BY DR WOODS, CONSENTS BEING SIGNED NOW.
--- NOTE | 2021-10-01 19:52 | NUR ---
10/01/211951 Zaina Pemberton PT ON SCHEDULED ANTIBIOTICS AND RECIEVED PRIOR TO ARRIVAL TO OR.
--- NOTE | 2021-10-01 20:00 | NUR ---
PT ARRIVED FROM THE OR TO ROOM 15 S/P EXP LAPW/TRANSVERSE COLECTOMY W/END COLOSTOMYSTRANGULATED INCISIONAL HERNIA REPAIR W/OUT MESH BY DR WOODS. PT ETT 7.5 24 @ TEETH, KUSUM RT @ BEDSIDE AND CONNECTED PT TO VENT; CURRENT SETTINGS A/C RATE 18 TV 400 FIO2 80% PEEP 8, OXYGEN SAT 97%. POSITIVE BILATERAL BREATH SOUNDS, CHEST XRAY ORDERED TO CONFIRM PLACEMENT. PT IS UNRESPONSIVE FROM MEDICATIONS GIVEN IN OR. PT HAS LEVOPHED @ 10MCGS/MIN, PT MAP >65 AT THIS TIME. AFEBRILE. PT NAVA CATH IS INTACT PATENT AND DRAINING CONCENTRATED YELLOW URINE. PT HAS A MIDLINE INCISION W/SILVIA DRAIN, INTACT W/NO DRAINAGE NOTED AT THIS TIME. PT HAS NEW COLOSTOMY, STOMA IS DARK RED, NO DRAINAGE AT THE PRESENT TIME. PT IS IN AFIB ON THE DRYWALL WORKER, RATE IN THE 90S. PT ABD IS VERY DISTENDED W/NO BOWEL SOUNDS NOTED. NO PRESSSURE SORES BUT LOWER EXTREMITIES HAVE 3+ PITTING EDEMA AND PEDAL PULSES HAD TO BE DOPPLER. LOWER EXTREMITIES ARE ALSO ROLANDO IN COLOR BUT CAP REFILL IS <3 AT THIS TIME.
--- NOTE | 2021-10-01 20:35 | NUR ---
CHANGE OF SHIFT NOTE. ASSUMED CARE OF PT AT 1900. UPON ARRIVAL TO UNIT PT WAS BEING SEEN BY SURGEON MELANIE FOR PROCEDURE. PT WAS TAKE OFF THE FLOOR BU 1929. PT SON WAS REACHED BY WORK PHONE AND UPDATED ON PT STATUS. REPORT GIVEN TO SLOANE HIRSCH IN ICU @ 2034.
--- NOTE | 2021-10-01 23:11 | NUR ---
SPOKE TO DR FLORES ABOUT PT CONSULT. UPDATED HIM ON PT CURRENT CONDITION. MD WILL PUT IN ORDERS APPROPRIATE.
[2021-10-02 03:27] LABS: Hematocrit 25.9 % (33.0-51.0); Hemoglobin 8.2 g/dL (11.5-16.0); Mean Corpuscular HGB 29.8 pg (26.0-34.0); Mean Corpuscular HGB Conc 31.7 g/dL (31.5-36.5); Mean Corpuscular Volume 94 fL (80-100); Mean Platelet Volume 12.3 fL (9.1-12.4); NRBC ABSOLUTE 0.02 K/mm3 (0.00-0.02); NRBC Auto 0.1 /100 WBC (0.0-0.2); Platelet Count 152 K/mm3 (150-400); RDW Coefficient Variation 16.8 % (11.7-14.2); RDW Standard Deviation 56.7 fL (35.1-46.3); Red Blood Cell Count 2.75 M/mm3 (3.80-5.20); White Blood Cell Count 15.19 K/mm3 (4.00-11.30)
[2021-10-02 03:46] LABS: BAND PERCENT MAN 15 % (0-8); BASOPHILS PERCENT MAN 0 % (0-2); EOSINOPHILS PERCENT MAN 0 % (0-6); LYMPHOCYTES ABSOLUTE MAN 0.91 K/mm3 (0.84-5.20); LYMPHOCYTES PERCENT MAN 6 % (21-46); MONOCYTES ABSOLUTE MAN 0.15 K/mm3 (0.16-1.47); MONOCYTES PERCENT MAN 1 % (4-13); NEUTROPHILS ABSOLUTE MAN 14.12 K/mm3 (1.96-9.15); SEG NEUTROPHILS PERCENT MAN 78 % (41-73); TOTAL CELLS COUNTED 100
[2021-10-02 03:49] LABS: Albumin, Blood 2.2 g/dL (3.4-5.0); Albumin/Globulin Ratio 0.5 (0.8-1.8); Bilirubin, Total 0.7 mg/dL (0.1-1.0); Bun/Creatinine Ratio 23.3 (12.0-20.0); Calcium, Blood 8.2 mg/dL (8.5-10.1); Creatinine, Blood 2.36 mg/dL (0.40-1.00); Globulin, Blood 4.4 g/dL (2.2-4.0); Magnesium, Blood 2.1 mg/dL (1.6-2.4); Phosphorus, Blood 6.2 mg/dL (2.5-4.9); Potassium, Blood 4.8 mmol/L (3.5-5.5); Total Protein, Blood 6.6 g/dL (6.4-8.2)
--- NOTE | 2021-10-02 06:00 | NUR ---
SHIFT SUMMERY PT CONTINUES W/VENTILATION VIA ETT, VENT SETTINGS 18/400/40%/5. SETTINGS DECREASED FROM ADMISSION TO ICU AT 2200 FROM 18/400/80/8. PT TOLERATED CHANGES WELL, OXYGEN SAT 95%. SECRETIONS ARE THICK AND BROWN/ESPINO, SMALL-MODERATE BLOOD TINGED. BILATERAL BREATH SOUNDS COURSE/RHONCHI WITH DIMINISHED BASES. ETT 7.5 TUBE 24 @TEETH. SEDATED ON 20MCGS PROPOFOL, PERRLA; COUGH AND GAG PRESENT. AFEBRILE THROUGHOUT THE NIGHT. AFIB ON THE LITIGATION DOCKET MANAGER, RATE CONTROLLED 90-100S. LEVOPHED WEANED FROM 10 TO 3 THIS SHIFT. MIDLINE ABD DRESSING W/SILVIA DRAIN INTACT W/SCANT AMOUNT OF BLOODY DRAINAGE MARKED. NEW COLOSTOMY W/ SMALL AMOUNT OF BLOODY DRAINAGE, STOMA RED W/SOME CLOTTED BLOOD POOLED UNDERNEATH. NAVA CATH INTACT AND DRAINING YELLOW URINE, ADEQUATE OUTPUT FOR [id number] @ 450ML. NO ACUTE DISTRESS OVERNIGHT.
--- NOTE | 2021-10-02 07:53 | NUR ---
ASSUMPTION OF CARE RECEIVED REPORT AT 0700 FROM SLOANE HIRSCH, ASSUMED CARE OF PATIENT. PATIENT INTUBATED WITH 7.5, 24CM AT THE TEETH. VENT SETTINGS AC 18/400/40%/5, SP02 ABOVE 95%. AFIB WITH RATE 80-100, LEVOPHED AT 3MCG/MIN FOR MAP ABOVE 65. SURGICAL SITE TO MID ABD WITH DRESSING C/D/I, SILVIA DRAIN IN PLACE. COLOSTOMY INTACT WITH RED STOMA, RED DRAINAGE AT THIS TIME. NAVA PATENT AND DRAINING CLEAR, YELLOW URINE. PROPOFOL INFUSING AT 20MCG/KG, DECREASED TO 15 MCG/KG. WILL REVIEW ORDERS AND TREAT PRESCRIBED.
--- NOTE | 2021-10-02 09:59 | NUR ---
OG OG PLACED TO [facility] AT [address] WOODS.
--- NOTE | 2021-10-02 15:12 | NUR ---
Patient is lying in bed and on airway support. Communication is challenging. Pt shakes her head to indicate that she is not doing well. She denies pain at the time of the visit. Based on my prior visits with pt, I ask pt if I could pray for her. She nods affirmingly. I provide prayer and a calming presence. Pt shakes her head in agreement after the prayer is said. I will continue to remain available to patient and family.
--- NOTE | 2021-10-02 18:07 | NUR ---
SHIFT SUMMARY NEURO: PROPOFOL INFUSING, TITRATED BETWEEN 10MCG/KG AND 20MCG/KG. PATIENT ALERT, FOLLOWS COMMANDS, COMMUNICATES NEEDS WITH YES OR NO QUESTIONS. CALM AND COOPERATIVE WITH CARE. RESP: VENTILATOR AC 18/400/5/35%. SUCTIONED MINIMAL SECRETIONS VIA ETT. CARDIAC: AFIB, CONTROLLED RATE. HEPARIN GTT INITIATED. LEVOPHED TITRATED FOR MAP ABOVE 65 CURRENTLY AT 2MCG/MIN. LASIX IV GIVEN WITH GOOD RESPONSE. GI: OG INSERTED AND PLACED TO LIS PER DR. WOODS. DARK BROWN DRAINAGE NOTED. COLOSTOMY IN PLACE WITH RED DRAINAGE, AIR RELEASED FROM COLOSTOMY BAG SEVERAL TIMES DURING DAY. HYPOACTIVE BOWEL TONES AT THIS TIME. : NAVA IN PLACED WITH ADEQUATE URINE OUTPUT, RESPONDED WELL TO LASIX. URINE CLEAR, YELLOW SKIN: ABD WITH SURGICAL SITE, DRESSING C/D/I, SILVIA DRAIN REMAINS. STOMA RED, COLOSTOMY APPLIANCE INTACT. REPOSOTIONED TO PROMOTE SKIN INTEGRITY. PICC LINE WAS PLACED, CURRENTLY MIDLINE POSITIONED. SON VISITED IN AFTERNOON, UPDATED REGARDING CURRENT PLAN FOR PATIENT. WILL REPORT TO ONCOMING RN.
--- NOTE | 2021-10-02 19:15 | NUR ---
ASSUMPTION OF CARE PT IS INTUBATED W/ETT 7.5 24 @ TEETH INTACT AND PATENT TO VENT. VENT SETTINGS ARE 18/400/35%/5. PT TOLERATING WELL AT THIS TIME. PROPOFOL INFUSING AT 20MCGS. OXYGEN SAT 95%. BILATERAL BREATH SOUNDS PRESENT, RHONCHI PRESENT IN BOTH LUNG ADAM W/DIMISHED BASES. PT IS IN AFIB ON THE DRY CAN TENDER, RATE IS CONTROLED IN THE 70-80S AT THIS TIME. PT IS HYPOTENSIVE. LEVOPHED CURRENTLY INFUSING AT 3, TITRATING FOR MAP > 65. PEDAL PULSES ARE DOPPLER ONLY. ABDOMEN IS DISTENDED AND FIRM. MIDLINE ABD INCISION DRESSING W/SILVIA DRAIN IS INTACT W/SMALL AMOUNT OF BLOODY DRAINAGE NOTED ON DRESSING. RIGHT COLOSTOMY STOMA IS RED, SMALL AMOUNT OF BLOODY DRAINAGE NOTED W/SOME BLOODY CLOTS UNDERNEATH STOMA. DR WOODS IS AWARE. NO S/S OF ACUTE BLOOD LOSS AT THIS TIME. PT HAS OG TUBE TO ILWS DRAINING BROWN/GREEN BILE. NAVA CATH INTACT PATENT AND DRAINING YELLOW URINE. HEPARIN GTT INFUSING AT 15U. NO ACUTE S/S OF DISTRESS NOTED AT TIME OF ASSUMPTION OF CARE.
[2021-10-03 02:57] LABS: BASOPHILS ABSOLUTE AUTO 0.01 K/mm3 (0.00-0.23); BASOPHILS PERCENT AUTO 0 % (0-2); EOSINOPHILS PERCENT AUTO 0 % (0-6); Hematocrit 27.5 % (33.0-51.0); Hemoglobin 9.1 g/dL (11.5-16.0); IMMATURE GRAN PERCENT AUTO 1 % (0-1); LYMPHOCYTES ABSOLUTE AUTO 0.89 K/mm3 (0.84-5.20); LYMPHOCYTES PERCENT AUTO 6 % (21-46); MONOCYTES ABSOLUTE AUTO 0.59 K/mm3 (0.16-1.47); MONOCYTES PERCENT AUTO 4 % (4-13); Mean Corpuscular HGB 29.8 pg (26.0-34.0); Mean Corpuscular HGB Conc 33.1 g/dL (31.5-36.5); Mean Corpuscular Volume 90 fL (80-100); Mean Platelet Volume 12.6 fL (9.1-12.4); NEUTROPHILS ABSOLUTE AUTO 12.42 K/mm3 (1.96-9.15); NEUTROPHILS PERCENT AUTO 89 % (41-73); Platelet Count 176 K/mm3 (150-400); RDW Coefficient Variation 16.5 % (11.7-14.2); RDW Standard Deviation 54.2 fL (35.1-46.3); Red Blood Cell Count 3.05 M/mm3 (3.80-5.20); White Blood Cell Count 14.01 K/mm3 (4.00-11.30)
[2021-10-03 03:14] LABS: Bun/Creatinine Ratio 31.7 (12.0-20.0); Calcium, Blood 8.9 mg/dL (8.5-10.1); Creatinine, Blood 1.83 mg/dL (0.40-1.00); Magnesium, Blood 2.3 mg/dL (1.6-2.4); Phosphorus, Blood 4.3 mg/dL (2.5-4.9); Potassium, Blood 3.6 mmol/L (3.5-5.5)
--- NOTE | 2021-10-03 06:15 | NUR ---
SHIFT SUMMERY NEURO: PT BECAME VERY AGITATED AND TACHYPNIC WHEN I DECREASED THE PROPOFOL. RATE WAS INCREASED BACK TO 25MCGS. RESP: ETT 7.5 24 TEETH VENT SETTINGS 18/400/30%/5-SATS 96% AT PRESENT TIME. NO EPISODES OF DESATURATION OVERNIGHT. CV: AFIB ON THE MONITOR, RATE CONTROLLED; LEVO TITRATING FOR MAP >65 GI: MIDLINE ABDOMINAL INCISION SURGICAL DRESSING W/SILVIA DRAIN INTACT W/SMALL AMOUNT OF BLOODY DRAINAGE. COLOSTOMY STOMA RED, SMALL AMOUNT OF BLOODY DRAINAGE W/SOME CLOTS. ABD DISTENDED AND TENDER. : NAVA CATH INTACT PATENT AND DRAINING YELLOW URINE TO GRAVITY BELOW THE LEVEL OF THE BLADDER.
--- NOTE | 2021-10-03 08:45 | NUR ---
DR. WOODS TO BEDSIDE TO EVAL NO NEW ORDERES AT THIS TIME. PT TO CONTINUE WITH OG TO LIS. OSTOMY PUTTING OUT RED LIQUID WITH CLOTS, PER DR. WOODS THIS IS EXPECTED, STOMA WNL, NO BOWEL TONES AT THIS TIME HOWEVER DOES HAVE SOME GAS FROM STOMA.
--- NOTE | 2021-10-03 08:51 | NUR ---
PT HR TRENDING DOWN, INTIALLY HR IN THE 70S-80S, PT. HR NOW DIPPING DOWN TO MID 50S AND OCCASIONALLY 48 THEN RECOVERS TO HIGH 50S. DR. GAITAN CALLED. ORDER TO BE PLACED FOR ATROPINE AT THE BEDSIDE.
--- NOTE | 2021-10-03 17:01 | NUR ---
SHIFT SUMMARY PT REMAINS SEDATED AND INTUBATED. MINIMAL OUTPUT FROM OSTOMY SITE, PT. CONTINUES WITH OG TO LIS. PT. ABD REMAINS SOFT BUT TENDER TO PALPATION, FACIAL GRIMACE NOTED. PT OSTOMY APPLIANCE CHANGED THIS SHIFT DUE TO LEAKING. PT. CONTNIUES ON LEVOPHED GTT AT 1MCG/MIN. PT HR TRENDING DOWN T/O SHIFT, REMAINS IN AFIB, HR DIPPING TO MID 40S. DOPAMINE GTT ORDERED FOR HR LESS THAN 35. EKG DONE. PT. NAVA DRAINING TO GRAVITY, REMAINS AFEBRILE. ALL NEEDS MET AT THIS TIME. REPORT TO ONCOMING RN.
--- NOTE | 2021-10-03 21:05 | NUR ---
ASSUMED CARE AT 1900 PATIENT IS INTUBATED AND SEDATED ON PROPOFOL. RESPONDS TO VERBAL STIMULI, FOLLOWS COMMMANDS AND ABLE TO MOVE FINGERS AND TOES. 02 SATS 97% ON VENT AC VC+ 18/400/5/30%, RR 18-20. SMALL AMOUNT OF WHITE SPUTUM SUCTIONED. OG IN PLACE, LIS, DRAINING DARK GREEN/BROWN BILE. HR A.FIB 60s-70s WITH PAUSES, HR DOWN TO 40s, BUT DOES NOT SUSTAIN. LEVOHED INF. HEPARIN DRIP INF. NAVA PATENT AND DRAINING TO GRAVITY. COLOSTOMY PINK, APPLIANCE CHANGED DURING DAYSHIFT PER REPORT. MIDLINE INCISION WITH DRESSING IN PLACE, SMALL AMOUNT OF BLOOD, OUTLINED AND UNCHANGED, SILVIA DRAIN IN PLACE. PATIENT REPOSITIONED, BUTTOCKS C/D/I. CALL LIGHT IN REACH. SEE SHIFT ASSESSMENT FOR MORE DETAIL.
[2021-10-04 03:46] LABS: Hemoglobin 8.1 g/dL (11.5-16.0); Mean Corpuscular HGB 28.8 pg (26.0-34.0); Mean Corpuscular HGB Conc 31.2 g/dL (31.5-36.5); Mean Corpuscular Volume 93 fL (80-100); Mean Platelet Volume 12.4 fL (9.1-12.4); Platelet Count 145 K/mm3 (150-400); RDW Coefficient Variation 16.6 % (11.7-14.2); RDW Standard Deviation 56.5 fL (35.1-46.3); Red Blood Cell Count 2.81 M/mm3 (3.80-5.20); White Blood Cell Count 10.29 K/mm3 (4.00-11.30)
[2021-10-04 04:13] LABS: Bun/Creatinine Ratio 43.2 (12.0-20.0); Creatinine, Blood 1.25 mg/dL (0.40-1.00)
--- NOTE | 2021-10-04 06:26 | NUR ---
SHIFT SUMMARY PATIENT REMAINS INTUBATED AND SEDATED ON PROPOFOL. RESPONDS TO VERBAL STIMULI, FOLLOWS COMMANDS, NODS YES/NO TO QUESTIONS. 02 SATS 95% ON VENT AC VC+ 18/400/5/35%, RR 18-22. SCANT AMOUNT OF WHITE SPUTUM SUCTIONED FROM ETT. OG TO LIS, DRAINING BROWN/GREEN BILE, 250 OUT THIS SHIFT. HR A.FIB WITH PAUSES DOWN TO THE 40s, DOES NOT SUSTAIN AND HR BACK TO 50s-60s. LEVO INF AT 1 MCG/MIN. MEDICATED PRN FOR PAIN. COLOSTOMY WITH MININAL LIQUID BROWN OUTPUT. NAVA PATENT AND DRAINING TO GRAVITY. BED BATH DONE THIS SHIFT. PATIENT REPOSITIONED Q2 HOURS. ORAL CARE DONE Q4 HOURS. ABDOMINAL DRESSING C/D/I WITH SILVIA DRAIN IN PLACE. AM LABS CALLED TO HOSPITALIST, REPLACING POTASSIUM NOW.
--- NOTE | 2021-10-04 16:09 | NUR ---
SHIFT SUMMARY PT. REMAINS INTUBATED THIS SHIFT. LEVOPHED GTT REMAINS OFF T/O SHIFT. PT. MED FOR PAIN T/O SHIFT, ABLE TO SHAKE HEAD YES AND NO TO QUESTIONS. PT. OSTOMY PUTTING OUT SMALL AMOUNT OF STOOL THIS AFTERNOON, MINIMAL OUTPUT FROM OG. NAVA CONTINUES DRAINING TO GRAVITY. REMAINS ON HEPARIN GTT. VSS T/O SHIFT. REPORT TO ONCOMING RN.
--- NOTE | 2021-10-04 19:24 | NUR ---
ASSUMED CARE AT 1900 PATIENT IS INTUBATED AND SEDATED ON PROPOFOL. OPENS EYES TO VERBAL STIMULI, NODS YES/NO TO QUESTIONS. NO MOVEMENT IN EXTREMITIES AT THIS TIME. 02 SATS >95% ON VENT AC VC+ 18/400/5/30%, RR 18-20. SUCTIONED SMALL AMOUNT OF THICK WHITE SPUTUM FROM ETT. ORAL CARE DONE. HR A.FIB 80-90s. BP STABLE. OG TO LIS, SMALL AMOUNT OF BROWN/GREEN BILE. STOMA RED WITH SMALL AMOUNT OF LIQUID BROWN STOOL. MID ABD DRESSING C/D/I WITH SILVIA DRAIN IN PLACE. NAVA PATENT AND DRAINING CLEAR YELLOW URINE TO GRAVITY. PATIENT REPOSITIONED. CALL LIGHT IN REACH. SEE SHIFT ASSESSMENT FOR MORE INFORMATION.
[2021-10-05 03:44] LABS: BASOPHILS ABSOLUTE AUTO 0.01 K/mm3 (0.00-0.23); BASOPHILS PERCENT AUTO 0 % (0-2); EOSINOPHILS ABSOLUTE AUTO 0.16 K/mm3 (0.00-0.68); EOSINOPHILS PERCENT AUTO 2 % (0-6); Hemoglobin 8.4 g/dL (11.5-16.0); IMMATURE GRAN ABSOLUTE AUTO 0.07 K/mm3 (0.00-0.10); IMMATURE GRAN PERCENT AUTO 1 % (0-1); LYMPHOCYTES ABSOLUTE AUTO 1.64 K/mm3 (0.84-5.20); LYMPHOCYTES PERCENT AUTO 18 % (21-46); MONOCYTES PERCENT AUTO 6 % (4-13); Mean Corpuscular HGB 29.2 pg (26.0-34.0); Mean Corpuscular HGB Conc 31.1 g/dL (31.5-36.5); Mean Corpuscular Volume 94 fL (80-100); Mean Platelet Volume 12.6 fL (9.1-12.4); NEUTROPHILS ABSOLUTE AUTO 6.59 K/mm3 (1.96-9.15); NEUTROPHILS PERCENT AUTO 73 % (41-73); NRBC ABSOLUTE 0.02 K/mm3 (0.00-0.02); NRBC Auto 0.2 /100 WBC (0.0-0.2); Platelet Count 151 K/mm3 (150-400); RDW Coefficient Variation 16.8 % (11.7-14.2); RDW Standard Deviation 56.8 fL (35.1-46.3); Red Blood Cell Count 2.88 M/mm3 (3.80-5.20); White Blood Cell Count 8.97 K/mm3 (4.00-11.30)
[2021-10-05 04:05] LABS: Albumin, Blood 2.3 g/dL (3.4-5.0); Anion Gap 9 mmol/L (6-16); Blood Urea Nitrogen 50 mg/dL (8-24); Bun/Creatinine Ratio 45.5 (12.0-20.0); CO2, Blood 30 mmol/L (21-32); Calcium, Blood 8.5 mg/dL (8.5-10.1); Chloride, Blood 106 mmol/L (98-108); Glomerular Filtration Rate 52 (60-); Glucose, Blood 154 mg/dL (70-99); Phosphorus, Blood 3.8 mg/dL (2.5-4.9); Potassium, Blood 3.3 mmol/L (3.5-5.5); Sodium, Blood 145 mmol/L (136-145)
--- NOTE | 2021-10-05 06:22 | NUR ---
SHIFT SUMMARY PATIENT REMAINS INTUBATED AND SEDATED ON PROPOFOL. OPENS EYES TO VERBAL STIMULI, NODS YES/NO. UNABLE TO FOLLOW COMMANDS. 02 SATS CONTINUE TO DROP PERIODICALLY, SUCTIONING MODERATE AMOUNT OF THICK WHITE SPUTUM FROM ETT. VENT AC VC + 18/400/8/45%. RR 18-20. NAVA PATENT AND DRAINING TO GRAVITY. HEPARIN DRIP REMAINS INFUSING. COLOSTOMY WITH INCREASED OUTPUT THIS SHIFT, SOFT/LIQUID BROWN STOOL, STOMA RED. ORAL CARE DONE Q4 HOURS AND PATIENT REPOSITIONED Q2 HOURS.
--- NOTE | 2021-10-05 17:54 | NUR ---
SHIFT SUMMARY NO ACUTE CHANGES THIS SHIFT. PT REMAINS INTUBATED AND SEDATED WITH PROPOFOL AT 30 MCG/KG/MIN. HEPARIN REMAINS INFUSING AT 20 UNIT/KG/HR PER PHARMACY. PICC TO GIANNI AND PG TO ZULEMA REMAIN INTACT. VENT SETTINGS AC 18, TV 400, PEEP 8, FIO2 40%. PT WITH MINIMAL ETT SECRETIONS THIS SHIFT. OGT REMAINS IN PLACE TO LIS WITH MINIMAL DARK BROWN OUTPUT NOTED. COLOSTOMY WITH INCREASING AMOUNT OF SOFT BROWN OUTPUT THIS SHIFT. MIDLINE SILVIA VAC REMAINS UNCHANGED. NAVA REMAINS IN PLACE WITH CLEAR YELLOW URINE OUTPUT. VITAL SIGNS REMAIN STABLE. PT SON AT BEDSIDE THIS AFTERNOON. WILL CONTINUE TO MONITOR AND REPORT OFF TO ONCOMING RN.
--- NOTE | 2021-10-05 20:06 | NUR ---
ASSUMED CARE OF PT AT 1910, BEDSIDE REPORT RECEIVED. GTTS ARE NOTED HEPARIN AT 20 UNITS/KG/HR PROGRAMMED FOR 94 KG, PROPOFOL INFUSING AT 30 MCG/KG/MIN PROGRAMMED FOR 140 KG, NS AT TKO. VENOUS ACCESS IS REVIEWED WITH OFFGOING RN, PICC TO RIGHT UPPER ARM IS NOT CENTRAL ACCESS AND SHOULD BE CONSIDERED LONG EXTENDED DWELL ACCESS, EXTENDED DWELL TO LEFT UPPER ARM NOTED. PT APPEARS TO BE RESTING QUIETLY AND TOLERATING VENTILATOR WELL, DOES CONTINUE TO ATTEMPT TO OPEN EYES WHEN NAME IS SPOKEN, HOWEVER DOES NOT FOLLOW COMMANDS OR ATTEMPT TO MOVE EXTREMITIES AT THIS TIME, TOLERATED ORAL CARE WELL, SLIGHT COUGH AND GAG IS NOTED WITH DEEP GLOTTAL SUCTIONING. WILL MONITOR.
[2021-10-06 04:43] LABS: Albumin, Blood 2.3 g/dL (3.4-5.0); Anion Gap 9 mmol/L (6-16); Blood Urea Nitrogen 41 mg/dL (8-24); CO2, Blood 28 mmol/L (21-32); Calcium, Blood 8.8 mg/dL (8.5-10.1); Chloride, Blood 108 mmol/L (98-108); Glomerular Filtration Rate 58 (60-); Glucose, Blood 159 mg/dL (70-99); Phosphorus, Blood 4.2 mg/dL (2.5-4.9); Potassium, Blood 3.5 mmol/L (3.5-5.5); Sodium, Blood 145 mmol/L (136-145)
--- NOTE | 2021-10-06 05:27 | NUR ---
PT CONTINUES ON VENTILATOR, SETTINGS REMAIN 18/400/8/35% SATS IMPROVED FROM MID 90S TO HIGH 90S, LUNGS REMAIN DIM MID TO BASES BILAT. PROPOFOL TITRATED DOWN TO 25 MCG/KG/MIN AND PT IS NOTED TO SPONTANEOUSLY OPEN EYES INTERMITTENTLY, SHE DOES NOT TRACK OR MAKE EYE CONTACT. SHE DOES NOT FOLLOW COMMANDS, WEAK LOWER EXTREMITY MOVEMENT HAS BEEN NOTED. SHE DOES NOT ANSWER YES/NO QUESTIONS. CONTINUES IN AFIB, RATE IMPROVED FROM 110-120S TO 80-90S FOLLOWING FENTANYL ADMINISTRATION PRIOR TO BEDBATH THIS SHIFT, WITH DECREASE IN PROPOFOL PT IS NOTED TO INCREASE CPOT PAIN SCORE APPROXIMATELY 3 HOURS AFTER EACH DOSE OF FENTANYL ADMINISTERED THIS SHIFT, HEART RATE IS ALSO NOTED TO INCREASE BACK TO 100-110S AND IMPROVES TO 80-90S FOLLOWING EACH SUBSEQUENT ADMINISTRATION. PRESSURES HAVE MAINTAINED STABLE THROUGHOUT NOC. BOWEL TONES REMAIN HYPOACTIVE BUT CONTINUE IMPROVING, SMALL AMOUNT OF SOFT BROWN STOOL DRAINED FROM OSTOMY BAG, BAG INTERMITTENTLY NOTED TO HAVE FLATUS PRESENT. WILL CONT TO MONITOR AND REPORT OFF TO NEXT SHIFT.
--- NOTE | 2021-10-06 08:19 | NUR ---
ASSUMPTION OF CARE RECEIVED REPORT AT 0710 FROM KAYLA RN, ASSUMED CARE OF PATIENT. SEDATED ON 25 OF PROPOFOL, DECREASED TO 20 UPON ASSUMPTION OF CARE AND TO 15MCG/KG AT 0800. PATIENT OPENS EYES SPONTANEOUSLY, FOLLOWS COMMANDS, VERY WEAK. INTUBATED ETT 7.5, 24CM AT THE TEETH. AC 18/400/8/35% WITH SP02 95%. AFIB WITH RATE 90-100, HEPARIN INFUSING AT 20UNITS/KG. OG SECURED TO LIS WITH DARK DRAINAGE. COLOSTOMY WITH APPLIANCE SECURED WITH DARK BROWN, SOFT/LIQUID OUTPUT. MIDLINE INCISION WITH DRESSING INTACT, SILVIA DRAIN IN PLACE. NAVA PATENT AND DRAINING CLEAR, YELLOW URINE. WILL REVIEW ORDERS AND TREAT PRESCRIBED.
--- NOTE | 2021-10-06 12:55 | NUR ---
Pt's son, Ricco and CG Karen are bedside. They both their fears and worries. I provide therapeutic listening, anxiety containment, gentle university counselor and prayer. Pt is alert enough to say "yes" to prayer. Everyone present displays evidence of reduced stress following the interventions offered. I will continue to remain available to patient and family.
--- NOTE | 2021-10-06 18:20 | NUR ---
SHIFT SUMMARY NEURO: SEDATION WEANED OFF CHARTED, PATIENT ALERT AND FOLLOWING COMMANDS. FENTANYL PRN NEEDED FOR PAIN. ATTEMPTED WEAN BUT UNABLE TO CONTINUE TO DUE TACHYPNEA. PATIENT BECAME RESTLESS AROUND 1530, UNABLE TO CALM WITH REPOSITIONING AND FENTANYL. PROPOFOL RESTARTED AND TITRATED UP TO 30MCG/KG. CARDIAC: AFIB WITH RATE TRENDING UP TO 120-130'S, RESTARTED CARDIZEM DRIP WITH RATE NOW 80'S-90'S. CARDIZEM AT 10MG. GI: OG TO LIS WITH 200CC DRAINAGE, TUBE FEEDS ORDERED TO TRICKLE AT 10ML/HR. DISCONTINUED SUCTION AND STARTED VHP AT 10ML/HR. COLOSTOMY WITH BROWN, SOFT OUTPUT. : NAVA PATENT AND DRAINING CLEAR YELLOW URINE WITH ADEQUATE OUTPUT IN RESPONSE TO LASIX. SKIN: SURGICAL DRESSING REMAINS INTACT WITH SILVIA DRAIN IN PLACE.
--- NOTE | 2021-10-06 20:46 | NUR ---
PATIENT REMAINS INTUBATED AND SEDATED WITH PROPOFOL 30 MCG, PATIENT OPENS EYES WITH STIMULI AND MOVES BOTH ARMS BUT NOT FOLLOWING DIRECTIONS. ETT IN PLACE WITH VENT SET AC/VC+ 20, TV 400, PEEP 10, FIO2 40% OG REMAINS IN PLACE WITH VITAL HP AT GOAL RATE OF 10 CC/HR. CARDIZEM 10 MG/HR FOR RATE CONTROL DUE TO AFIB, AND HEPARIN DRIP PER PHARMACY CONTINUES. ABD DRESSING CD&I WITH SILVIA WOUND VAC IN PLACE HOLDING GOOD SUCTION. COLOSTOMY IN PLACE WITH SOFT BROWN STOOL AND AIR IN BAG.
[2021-10-07 04:07] LABS: BASOPHILS ABSOLUTE AUTO 0.02 K/mm3 (0.00-0.23); BASOPHILS PERCENT AUTO 0 % (0-2); EOSINOPHILS ABSOLUTE AUTO 0.21 K/mm3 (0.00-0.68); EOSINOPHILS PERCENT AUTO 2 % (0-6); Hematocrit 25.6 % (33.0-51.0); Hemoglobin 7.8 g/dL (11.5-16.0); IMMATURE GRAN ABSOLUTE AUTO 0.34 K/mm3 (0.00-0.10); IMMATURE GRAN PERCENT AUTO 4 % (0-1); LYMPHOCYTES ABSOLUTE AUTO 1.68 K/mm3 (0.84-5.20); LYMPHOCYTES PERCENT AUTO 19 % (21-46); MONOCYTES ABSOLUTE AUTO 0.55 K/mm3 (0.16-1.47); MONOCYTES PERCENT AUTO 6 % (4-13); Mean Corpuscular HGB 28.8 pg (26.0-34.0); Mean Corpuscular HGB Conc 30.5 g/dL (31.5-36.5); Mean Corpuscular Volume 95 fL (80-100); Mean Platelet Volume 12.4 fL (9.1-12.4); NEUTROPHILS ABSOLUTE AUTO 6.06 K/mm3 (1.96-9.15); NEUTROPHILS PERCENT AUTO 68 % (41-73); NRBC ABSOLUTE 0.05 K/mm3 (0.00-0.02); NRBC Auto 0.6 /100 WBC (0.0-0.2); Platelet Count 174 K/mm3 (150-400); RDW Coefficient Variation 16.9 % (11.7-14.2); RDW Standard Deviation 57.2 fL (35.1-46.3); Red Blood Cell Count 2.71 M/mm3 (3.80-5.20); White Blood Cell Count 8.86 K/mm3 (4.00-11.30)
[2021-10-07 04:21] LABS: Albumin, Blood 2.1 g/dL (3.4-5.0); Anion Gap 9 mmol/L (6-16); Blood Urea Nitrogen 26 mg/dL (8-24); Bun/Creatinine Ratio 30.3 (12.0-20.0); CO2, Blood 27 mmol/L (21-32); Calcium, Blood 8.3 mg/dL (8.5-10.1); Chloride, Blood 110 mmol/L (98-108); Creatinine, Blood 0.86 mg/dL (0.40-1.00); Glomerular Filtration Rate 70 (60-); Glucose, Blood 157 mg/dL (70-99); Phosphorus, Blood 3.7 mg/dL (2.5-4.9); Potassium, Blood 3.3 mmol/L (3.5-5.5); Sodium, Blood 146 mmol/L (136-145)
--- NOTE | 2021-10-07 06:38 | NUR ---
SUMMARY PATIENT REMAINS INTUBATED AND SEDATED WITH VENT AC VC+ 20, TV 400, PEEP 10, FIO2 30% SUCTIONING OCCASIONAL WHITE/LIGHT YELLOW PLUGS VIA ETT AT TIMES. PROPOFOL 30 MCG OPENING EYES AND REACHING WITH BOTH ARMS WITH STIMULI. FENTANYL IV GIVEN T/O NIGHT FOR PAIN. CARDIZEM 5 MG/HR FOR RATE CONTROL, HEPARIN DRIP PER PHARMACY FOR AFIB. OG REMAINS IN PLACE WITH VITAL HP AT GOAL RATE OF 10 CC/HR WITH MIN RESIDUALS. COLOSTOMY DRAINING LOOSE BROWN STOOL AND AIR. ABD DRESSING REMAINS CD&I WITH SILVIA WOUND VAC HOLDING GOOD SUCTION.
--- NOTE | 2021-10-07 08:00 | NUR ---
ASSUMED CARE OF PT, REPORT RCV'D FROM TRI Black RN. PT OPENS EYES TO VERBAL STIMULATION AND SPONTANEOUSLY, PULLS AT RESTRAINTS BILATERALLY, FAILS TO FOLLOW COMMANDS AT THIS TIME. PROPOFOL @ 30 MCG/KG/MIN AT START OF SHIFT, TITRATED DOWN AND PRECEDEX STARTED AT 0.7 MCG/KG/HR TO AID WITH WEANING ATTEMPTS. CARDIZEM GTT PLACED ON STANDBY. HEPARIN GTT @20 U/KG/HR (94 KG DOSE WT). SEE FULL SHIFT ASSESSMENT.
[2021-10-07] MEDS ORDERED: BUME2 PO ×2 (14:07→14:08)
[2021-10-07] MEDS ORDERED: FURO40 PO (14:09)
--- NOTE | 2021-10-07 18:17 | NUR ---
SHIFT SUMMARY PT REMAINS INTUBATED AND LIGHTLY SEDATED. PT ON SPONTANEOUS VENT SETTINGS 14/8, 30% SINCE THIS AM, PT TOLERATING WELL. PROPOFOL OFF SINCE 1000, PRECEDEX @0.5 MCG/KG/HR. PT OPENS EYES SPONTANEOUSLY AND TO VERBAL STIMULATION, FAILS TO FOLLOW COMMANDS AT THIS TIME. 500 ML LIQUID STOOL WITH BLOOD CLOTS FROM PT'S COLOSTOMY, APPLIANCE AND BAG CHANGED. 1200 ML SETH URINARY OUTPUT FROM NAVA. CARDIZEM GTT OFF, CURRENTLY AFIB WITH HR 70-80'S. HEPARIN GTT RATE REMAINS UNCHANGED. PT'S SON AND DAUGHTER AT BEDSIDE FOR MOST OF THE DAY. UPDATED WITH PT'S STATUS AND PLAN OF CARE. WILL REPORT TO ONCOMING NURSE.
--- NOTE | 2021-10-07 19:41 | NUR ---
ASSUMED CARE AT 1900 PATIENT IS INTUBATED AND SEDATED ON PRECEDEX. OPENS EYES SPONT. UNABLE TO FOLLOW COMMANDS. LOCALIZES TO PAIN. 02 SATS 95% ON VENT SPONT 14/8 FI02 30%, RR 20-29. SUCTIONING MODERATE AMOUNTS OF THICK RINCON SPUTUM. OG INF TUBE FEED VITAL HP, AT GOAL RATE 45 MLS/HR WITH 30 MLS FLUSHES, Q4 HOURS. HR A.FIB 70s, BP STABLE. HEPARIN DRIP INFUSING, CONFIRMED RATE. NAVA PATENT AND DRAINING TO GRAVITY. COLOSTOMY DRAINING BROWN LIQUID STOOLS WITH SOME CLOTS. STOMA IS PINK/RED WITH SOME EDEMA. APPLIANCE CHANGED PER DAYSHIFT RN. ORAL CARE DONE AND PATIENT REPOSITIONED. SEE SHIFT ASSESSMENT FOR MORE INFORMATION.
[2021-10-08 04:00] LABS: Albumin, Blood 2.2 g/dL (3.4-5.0); Anion Gap 6 mmol/L (6-16); Blood Urea Nitrogen 27 mg/dL (8-24); Bun/Creatinine Ratio 30.7 (12.0-20.0); CO2, Blood 27 mmol/L (21-32); Calcium, Blood 9.1 mg/dL (8.5-10.1); Chloride, Blood 111 mmol/L (98-108); Creatinine, Blood 0.88 mg/dL (0.40-1.00); Glomerular Filtration Rate 68 (60-); Glucose, Blood 207 mg/dL (70-99); Phosphorus, Blood 3.8 mg/dL (2.5-4.9); Potassium, Blood 3.8 mmol/L (3.5-5.5); Sodium, Blood 144 mmol/L (136-145)
--- NOTE | 2021-10-08 05:48 | NUR ---
SHIFT SUMMARY PATIENT REMAINS INTUBATED AND SEDATED ON PRECEDEX. PRECEDEX INCREASED THROUGH THE NIGHT DUE TO INCREASED RR AND AGITATION. MEDICATED PRN WITH FENTANYL FOR PAIN PER EMAR. 02 SATS >95% ON VENT, SPONT 14/8, 30% MOST THE NIGHT. EARLY THIS AM SWITCHED TO AC VC+ 20/400/8/30% DUE TO LOW TIDAL VOLUMES AND INCREASED RR. SUCTIONING THICK RINCON SPUTUM FROM ETT. HR A.FIN 70s, BP STABLE. OG INF TUBE FEED AT GOAL RATE. NAVA PATENT AND DRAINING DARK SETH URINE TO GRAVITY. COLOSTOMY WITH 100 MLS LIQUID BROWN OUTPUT. BED BATH DONE THIS SHIFT/LINEN CHANGED. PATIENT REPOSITIONED Q2 HOURS.
--- NOTE | 2021-10-08 07:15 | NUR ---
ASSUMED CARE OF PT, REPORT RCV'D FROM JOYCELYN VANG. PT INTUBATED AND SEDATED. VENT SETTING AC 20/400/10/30%, PRECEDEX @0.7 MCG/KG/HR. PT OPENS EYES SPONTANEOUSLY, TURNS EYES TOWARD VERBAL STIMULATION, FACIAL GRIMACING WITH ORAL CARE, FAILS TO FOLLOW COMMANDS. VSS AT THIS TIME, SEE FULL SHIFT ASSESSMENT.
--- NOTE | 2021-10-08 09:00 | NUR ---
PT LESS RESPONSIVE, PUPILS 1MM BRISK REACTION, NEGATIVE BABINSKI, NO WITHDRAWAL FROM PAINFUL STIMULI, POSITIVE COUGH REFLEX. DR. FLORES AT BEDSIDE, ORDER FOR STAT HEAD CT. PRECEDEX PLACED ON STANDBY. FAMILY NOTIFIED.
--- NOTE | 2021-10-08 14:40 | NUR ---
PT ANSWERING YES/NO QUESTIONS WITH SLIGHT NOT OF HEAD. NO MOVEMENT BILATERAL UPPER/LOWER EXTREMETIES OR EYE TRACING TO THE RIGHT. PT REQUESTING TO STAY AWAKE TO SEE FAMILY, SON AT BEDSIDE WITH PASTORAL CARE-FAMILY COMING FROM OUT OF STATE.
--- NOTE | 2021-10-08 15:21 | NUR ---
Spoke with Primary RN Calixto and discussed case. Pt remains intubated and weaning trials have been unsuccessful. Pt not requiring sedation. Concerns Pt may have experienced a stroke. Pt resting in bed intubated and awake. Pt's son Alexx at bedside. Pt and son known to this fiction and nonfiction prose writer from previous hospital stay. Offered supportive visit and answered questions. Son does not thank Pt would want trach if required. When Pt is asked wishes regarding trach Pt does not shake her head indicating yes or no. She does shake her head yes when asked if she would like time to think about this option. Continued supportive visit. Spoke with RN Joel Spencer and discussed case. Palliative Care will remain available.
--- NOTE | 2021-10-08 16:06 | NUR ---
Spiritual care visit conducted. Pt is lying in bed and watching closing all that is happening on the left side of the rm. Pt's son, Ricco is present and is tearful at times. He shares about his be and about his personal struggles. He also discusses the challenges of feeling helpless while his mother is in a medical delema. Pt nods affirmingly that she is having a difficult time and the same when asked if she would like a prayer said for her. I provide therapeutic listening, spiritual guidance for Ricco and prayer for them both. They both respond well and show signs of being comforted. I will continue to remain available to pt and family.
--- NOTE | 2021-10-08 17:00 | NUR ---
PT MORE RESPONSIVE, REPORTING ABDOMINAL PAIN. PTS SQUEEZES HANDS VERY LIGHTLY BILATERALLY AND WIGGLES TOES BILATERALLY. PT PLACED BACK IN RESTRAINTS TO PROTECT LINES/CORDS.
--- NOTE | 2021-10-08 18:36 | NUR ---
SHIFT SUMMARY PT REMAINS INTUBATED, VENT SETTINGS UNCHANGED. SEDATION OFF SINCE 0900, PT CONTINUES TO NOD HEAD YES/NO TO QUESTIONS, SQUEEZE HANDS LIGHTLY BILATERALLY AND WIGGLE TOES. PT DOES NOT DISPLAY GROSS MOVEMENT AT THIS TIME. HEPARIN REMAINS AT 20 UNITS/KG. 2100 ML SETH URINARY OUTPUT FROM NAVA. VSS STABLE T/O SHIFT. SEE PREVIOUS NOTES FOR THIS SHIFT. WILL REPORT TO ONCOMING NURSE.
--- NOTE | 2021-10-08 20:57 | NUR ---
ASSUMED CARE AT 1900 PATIENT IS INTUBATED AND ALERT ON NO SEDATION. PATIENT NODS YES/NO APPROPRIETLY TO QUESTION, FOLLOWS COMMANDS, MOVES ALL EXTREMITIES. WEAKNESS T/O. DUE TO PATIENTS RESPONSIVENESS RT SWITCHED VENT SETTINGS BACK TO SPONT 14/8 25%, RR 20s, PATIENT TOLERATING WELL. SUCTIONING MODERATE AMOUNT OF THICK RINCON SPUTUM FROM ETT. HR A.FIB 80s-115. BP STABLE. OG WITH CONTINOUS FEED, VITAL HP, AT GOAL RATE OF 45 MLS/HR WITH 30 MLS FLUSHES Q4 HOURS. COLOSOMY WITH LIQUID BROWN OUTPUT, SOME CLOTS, STOMA PINK/RED AND SWOLLEN. APPLIANCE INTACT. NAVA PATENT AND DRAINING DARK SETH URINE TO GRAVITY. MID ABD DRESSING WITH SILVIA DRAIN C/D/I. PATIENT REPOSITONED AND ORAL CARE DONE. CALL LIGHT IN REACH. SEE SHIFT ASSESSMENT FOR MORE INFORMATION.
[2021-10-09 03:52] LABS: BASOPHILS ABSOLUTE AUTO 0.03 K/mm3 (0.00-0.23); BASOPHILS PERCENT AUTO 0 % (0-2); EOSINOPHILS PERCENT AUTO 2 % (0-6); Hematocrit 26.6 % (33.0-51.0); Hemoglobin 8.2 g/dL (11.5-16.0); IMMATURE GRAN PERCENT AUTO 2 % (0-1); LYMPHOCYTES ABSOLUTE AUTO 1.65 K/mm3 (0.84-5.20); LYMPHOCYTES PERCENT AUTO 19 % (21-46); MONOCYTES ABSOLUTE AUTO 0.69 K/mm3 (0.16-1.47); MONOCYTES PERCENT AUTO 8 % (4-13); Mean Corpuscular HGB 29.2 pg (26.0-34.0); Mean Corpuscular HGB Conc 30.8 g/dL (31.5-36.5); Mean Corpuscular Volume 95 fL (80-100); Mean Platelet Volume 11.7 fL (9.1-12.4); NEUTROPHILS ABSOLUTE AUTO 6.03 K/mm3 (1.96-9.15); NEUTROPHILS PERCENT AUTO 69 % (41-73); NRBC ABSOLUTE 0.02 K/mm3 (0.00-0.02); NRBC Auto 0.2 /100 WBC (0.0-0.2); Platelet Count 235 K/mm3 (150-400); RDW Coefficient Variation 17.2 % (11.7-14.2); RDW Standard Deviation 59.1 fL (35.1-46.3); Red Blood Cell Count 2.81 M/mm3 (3.80-5.20)
[2021-10-09 04:08] LABS: Albumin, Blood 2.2 g/dL (3.4-5.0); Anion Gap 8 mmol/L (6-16); Blood Urea Nitrogen 28 mg/dL (8-24); Bun/Creatinine Ratio 38.9 (12.0-20.0); CO2, Blood 27 mmol/L (21-32); Calcium, Blood 8.8 mg/dL (8.5-10.1); Chloride, Blood 111 mmol/L (98-108); Creatinine, Blood 0.72 mg/dL (0.40-1.00); Glomerular Filtration Rate 87 (60-); Glucose, Blood 206 mg/dL (70-99); Phosphorus, Blood 3.5 mg/dL (2.5-4.9); Potassium, Blood 3.6 mmol/L (3.5-5.5); Sodium, Blood 146 mmol/L (136-145)
--- NOTE | 2021-10-09 05:57 | NUR ---
SHIFT SUMMARY PATIENT REMAINS INTUBATED ON NO SEDATION. ALERT AND NODS YES/NO TO QUESTIONS, FOLLOWS COMMANDS, MOVES ALL EXTREMITIES. DENIES PAIN. 02 SATS 97% ON SPONT 14 FI02 25%, RR 20s. SUCTIONING THICK RINCON SPUTUM FROM ETT. HR A.FIB 90s-110. BP STABLE. OG REMAINS INF TUBE FEED AT GOAL RATE. NAVA PATENT AND DRAINING TO GRAVITY. COLOSTOMY OUTPUT LIQUID BROWN WITH SOME CLOTS, STOMA REMAINS RED/PINK. ABD DRESSING C/D/I. PATIENT REPOSITIONED Q2 HOURS, ORAL CARE Q4 HOURS.
--- NOTE | 2021-10-09 07:15 | NUR ---
Assumed care of pt at 0700. Report received from Darcy HIRSCH. Pt alert. Calm and cooperative. Answers yes/no questions by nodding her head. Follows commands. Sedation off. 7.5 cm ETT at expected placement of 24 cm at teeth. Ventilator on spontaneous mode with PS 14, PEEP 8, and 25% FiO2. SpO2 98-99%. Atrial fibrillation with rate 105. BP stable.
--- NOTE | 2021-10-09 08:45 | NUR ---
Dr Zaidi in to see patient. Discussed appearance of stoma as it has some edema. Provider states this is an expected finding for this patient considering appearance of bowel when stoma was created. Provider removed SILVIA dressing from midline insicion and dressed site with gauze and medipore tape.
--- NOTE | 2021-10-09 11:52 | NUR ---
Supportive visit this AM. Pt resting in bed, awake and intubated. Pt denies pain or discomfort at this time. Pt's sister and sister's son at bedside. Answered questions and offered therapeutic listening. Spoke with Primary RN Guadalupe and discussed case. Palliative Care will remain available.
--- NOTE | 2021-10-09 17:39 | NUR ---
SUMMARY Neuro: Pt is alert. Calm and cooperative with care. Answers yes/no questions. Follows commands. Moves all extremeties with equal strength and range of motion. 3 mm pupils, PERRL. Added lyrica per v/o Dr Pacheco as pt nodded head "yes" regarding neuropathic pain when asked by her son. Musculoskeletal: Dependent care for all ADLs, including Q2H reposition. Remains in bilateral wrist restraints due to risk for extubation. Respiratory: 7.5 cm ETT, 24 cm at teeth. Vent settings PS 10/8 and 25% FiO2. RR 20-22. Tidal volumes 400-475 ml. SpO2 100%. Cardiac: Afib per monitor, rate 92. BP stable. Edema unchanged from initial assessment. Capillary refill less than 3 seconds BUE and BLE. GI: Tolerating tube feeds well. 0 mL residual measured during all checks today. Good output from colostomy. : Excellent urine output from bryant Skin: Unchanged from initial assessment with exception to midline incision as SILVIA dressing was removed by Dr Zaidi and the site is now covered with gauze and medipore tape. Psychosocial: Unchanged. Pt had several different visitors today.
--- NOTE | 2021-10-09 19:56 | NUR ---
ASSUMED CARE AT 1900 PATIENT IS INTUBATED WITH NO SEDATION. ORIENTED AND FOLLOWING COMMANDS, NODS YES/NO, MOVES ALL EXTREMITIES. DENIES PAIN. 02 SATS 100% ON SPONT 12/27 FI02 25%. THICK RINCON SPUTUM SUCTIONED FROM ETT. HR A.FIB 80s-90s. BP STABLE. HEPARIN DRIP REMAINS INFUSING. OG WITH TF VITAL HP AT GOAL RATE OF 45 MLS/HR WITH 30 MLS FLUSHES Q4 HOURS. OSTOMY WITH LIQUID BROWN OUTPUT, PER DAYSHIFT RN AWARE OF STOMA APPEARING EDMATOUS AND PINK. NAVA PATENT AND DRAINING TO GRAVITY. SEE SHIFT ASSESSMENT FOR MORE INFORMATION.
[2021-10-10 04:18] LABS: BASOPHILS ABSOLUTE AUTO 0.04 K/mm3 (0.00-0.23); BASOPHILS PERCENT AUTO 0 % (0-2); EOSINOPHILS ABSOLUTE AUTO 0.31 K/mm3 (0.00-0.68); EOSINOPHILS PERCENT AUTO 3 % (0-6); Hematocrit 27.2 % (33.0-51.0); Hemoglobin 8.2 g/dL (11.5-16.0); IMMATURE GRAN ABSOLUTE AUTO 0.18 K/mm3 (0.00-0.10); IMMATURE GRAN PERCENT AUTO 2 % (0-1); LYMPHOCYTES ABSOLUTE AUTO 1.71 K/mm3 (0.84-5.20); LYMPHOCYTES PERCENT AUTO 14 % (21-46); MONOCYTES ABSOLUTE AUTO 0.87 K/mm3 (0.16-1.47); MONOCYTES PERCENT AUTO 7 % (4-13); Mean Corpuscular HGB Conc 30.1 g/dL (31.5-36.5); Mean Corpuscular Volume 96 fL (80-100); Mean Platelet Volume 11.6 fL (9.1-12.4); NEUTROPHILS ABSOLUTE AUTO 9.14 K/mm3 (1.96-9.15); NEUTROPHILS PERCENT AUTO 75 % (41-73); NRBC ABSOLUTE 0.03 K/mm3 (0.00-0.02); NRBC Auto 0.2 /100 WBC (0.0-0.2); Platelet Count 246 K/mm3 (150-400); RDW Coefficient Variation 17.4 % (11.7-14.2); RDW Standard Deviation 60.2 fL (35.1-46.3); Red Blood Cell Count 2.83 M/mm3 (3.80-5.20); White Blood Cell Count 12.25 K/mm3 (4.00-11.30)
[2021-10-10 04:40] LABS: Albumin, Blood 2.2 g/dL (3.4-5.0); Anion Gap 7 mmol/L (6-16); Blood Urea Nitrogen 26 mg/dL (8-24); Bun/Creatinine Ratio 35.5 (12.0-20.0); CO2, Blood 27 mmol/L (21-32); Calcium, Blood 9.1 mg/dL (8.5-10.1); Chloride, Blood 111 mmol/L (98-108); Creatinine, Blood 0.73 mg/dL (0.40-1.00); Glomerular Filtration Rate 85 (60-); Glucose, Blood 191 mg/dL (70-99); Potassium, Blood 3.8 mmol/L (3.5-5.5); Sodium, Blood 145 mmol/L (136-145)
--- NOTE | 2021-10-10 06:04 | NUR ---
SHIFT SUMMARY PATIENT REMAINS INTUBATED WITH NO SEDATION. ALERT AND ORIENTED, NODS YES/NO, FOLLOWS COMMANDS. 02 SATS >95% ON VENT, SPONT 10/8 FI02 25%. STILL SUCTIONING THICK RINCON SPUTUM FROM ETT. HR A.FIB 90-110. BP STABLE. HEPARIN DRIP INFUSING. OG WITH TF AT GOAL RATE. OSTOMY WITH 50 MLS LIQUID LIGHT BROWN OUTPUT. NAVA PATENT AND DRAINING TO GRAVITY. REPOSITIONED EVERY TWO HOURS AND ORAL CARE EVERY 4 HOURS. BED BATH DONE THIS SHIFT AND LINENS CHANGED.
--- NOTE | 2021-10-10 07:15 | NUR ---
Assumed care of pt at 0700. Report received from Darcy HIRSCH. Pt is alert. Intubated. PS 10/8 and 25% FiO2. SpO2 90% or greater. Afib per monitor with controlled rate.
--- NOTE | 2021-10-10 10:37 | NUR ---
Spiritual care visit conducted. I enter rm just prior to extubation. I assure pt and provide a calming presence. Pt's cousin comes into pt's rm subsequent to extubation and we pray together for the pt. She gives us the thumbs up and a head nod at the completion of the prayer. I will continue to remain available.
--- NOTE | 2021-10-10 11:09 | NUR ---
Pt extubated at 0945 to BiPAP. 02/12 and 25% FiO2. OG tube removed with extubation. Family at bedside to meet with patient. Pt tolerating BiPAP well at this time. Dr David in to see patient and updated.
--- NOTE | 2021-10-10 18:35 | NUR ---
SUMMARY Neuro: Pt A&O x 3. Answers simple questions. Follows commands. Communicates needs. Pleasant and cooperative with care. Cough and gag intact. NPO until ST eval tomorrow Musculoskeletal: Moves all extremities with equal strength and range of motion. Weak. Attempts to participate in care. Respiratory: Lungs clear, diminished in bases. SpO2 90% or greater BiPAP 14/9, 25% or 3 LPM NC. Weak, nonproductive cough. Worked with pt to use flutter valve. Cardiac: Afib per monitor with stable rate. Edema unchanged from initial assessment. GI: NPO. Good output from ostomy. Appliance changed. : Good urine output from bryant. Skin: Unchanged from initial assessment Psychosocial: Pt appears to be in good spirits, often giving a gentle smile or offering a soft laugh in response to communication. Several visitors in to see patient today.
--- NOTE | 2021-10-11 00:24 | NUR ---
[facility] @ 1900 REPORT RECIEVE FROM OFF COMING NURSE. PT VITALLY STABLE IN AFIB RATE CONTROLLED ON BIPAP 02/12 RR 16 FIO 25% SEE SHIFT ASSESMENT FOR FULL ASSESMENT
[2021-10-11 03:35] LABS: PCO2 Arterial 42.2 mmHg (35-45); pH Blood Arterial 7.42 (7.35-7.45)
[2021-10-11 03:49] LABS: BASOPHILS ABSOLUTE AUTO 0.06 K/mm3 (0.00-0.23); BASOPHILS PERCENT AUTO 1 % (0-2); EOSINOPHILS ABSOLUTE AUTO 0.36 K/mm3 (0.00-0.68); EOSINOPHILS PERCENT AUTO 3 % (0-6); Hematocrit 26.8 % (33.0-51.0); IMMATURE GRAN ABSOLUTE AUTO 0.13 K/mm3 (0.00-0.10); IMMATURE GRAN PERCENT AUTO 1 % (0-1); LYMPHOCYTES ABSOLUTE AUTO 1.71 K/mm3 (0.84-5.20); LYMPHOCYTES PERCENT AUTO 16 % (21-46); MONOCYTES ABSOLUTE AUTO 0.78 K/mm3 (0.16-1.47); MONOCYTES PERCENT AUTO 7 % (4-13); Mean Corpuscular HGB 29.2 pg (26.0-34.0); Mean Corpuscular HGB Conc 29.9 g/dL (31.5-36.5); Mean Corpuscular Volume 98 fL (80-100); Mean Platelet Volume 11.1 fL (9.1-12.4); NEUTROPHILS ABSOLUTE AUTO 7.83 K/mm3 (1.96-9.15); NEUTROPHILS PERCENT AUTO 72 % (41-73); Platelet Count 237 K/mm3 (150-400); RDW Coefficient Variation 17.5 % (11.7-14.2); RDW Standard Deviation 61.3 fL (35.1-46.3); Red Blood Cell Count 2.74 M/mm3 (3.80-5.20); White Blood Cell Count 10.87 K/mm3 (4.00-11.30)
[2021-10-11 04:13] LABS: Bun/Creatinine Ratio 31.7 (12.0-20.0); Calcium, Blood 9.1 mg/dL (8.5-10.1); Creatinine, Blood 0.73 mg/dL (0.40-1.00); Phosphorus, Blood 4.1 mg/dL (2.5-4.9); Potassium, Blood 3.7 mmol/L (3.5-5.5)
--- NOTE | 2021-10-11 06:20 | NUR ---
SHIFT SUMMARY sHIFT SUMMERY PATIENT REMAINS ON BIPAP. ALERT ORIENT TO SELF SITUATION, TIME, FOLLOWS COMMANDS, MOVES ALL EXTREMITIES. DENIES PAIN. 02 SATS 100% ON BIPAP 13/9 25% FIO2. 3LNC FOR BREAKS OFF BIPAP HR A.FIB 90s-102 RATE CONTROLLED WITH IV METROPOLOL. BP STABLE. PT REAMAINS NPO UNTILL SPEACH EVALUATION. NAVA PATENT AND DRAINING TO GRAVITY. COLOSTOMY OUTPUT LIQUID BROWN, STOMA REMAINS RED/PINK AND EDEMOTOUS. ABD DRESSING C/D/I. PATIENT REPOSITIONED Q2 HOURS, ORAL CARE Q4. HOURS. wILL HAND OFF REPORT TO AM RN WHEN AVALIABLE
--- NOTE | 2021-10-11 07:30 | NUR ---
Received report from Sheryl HIRSCH. patient awake in Bed with CPAP in place 13/ 25% and sats >95%. She is alert and oriented and is able to communicate her simple needs. She has already been requesting to have mask off and call son.RT in room placing her on 3L O2 via NC. She has mid line PICC to ZULEMA, as it does not terminate in a low position and is infusing Heparin at 21 units/kg/hr and NS TKO. She has 16Fr Marrero draining to gravity and has franchesca colored urine. temp is 95.[address] called and is on her way to eval.
--- NOTE | 2021-10-11 07:42 | NUR ---
Received report from Noc RN. Patient is awake in bed watching TV and is alert and oriented. he is able to communicate his needs and calls appropriately. He is on RA and sats >90%. He is audilbly wheezy at bedside. He is getting updraft now by RT. He has 20ga PowerGlide inLUA and is infusing Octreotide. He calls and uses urinal with a little assist. He is tremulous and weak with movements. he tolerates fluids without cough, but has weak cough when requested.LUJAN but weak. He has tyransvenous pacer to RU chest dressing intact and re-inforced and rate of 72 and have not seen any pacer spikes.
--- NOTE | 2021-10-11 09:34 | NUR ---
ST has been here and made there reccomendation and are outside door. Dr Dang has made her PCU status and she will be going to PCU 20. She has tolerated her IV meds and crushed meds in applesauce. Son is currently at bedside. She is allowed thin liquids in cup and has tolerated drinking without assist.
--- NOTE | 2021-10-11 17:13 | NUR ---
END OF SHIFT SUMMARY: PATIENT IS CURRENLTY RESTING TKO NS AND ZOSYN RUNNING THROUGH PICC, HEPARIN INCREASED TO 22 UNITS, PREV WAS 21. PATIENT HAS BEEN CHEST PAIN FREE, WAS UPGRADED TO PUREE AT LUNCH, HAS TOLERATED ORAL MEDCIATIONS PER ORDERS FOR PREVIOUS RN. STILL IN AFIB 80-100'S. SP02>94% 3 L VIA NC. MENTATION IMPROVING, PT EVALUATED, SHE LIVES IN A TWO BEDROOM APARTMENT AND TO ACCESS HER BATHROOM SHE HAS TO TAKE 2-3 STEPS ADDITONALLY WOULD HAVE TO TRANSFER FROM POWERCHAIR TO BED, AND CHAIR AT HOME WITH ASSISTANCE OF A WALL MOUNTED HANDLE. PATIENT HAS BEEN ALERT AND ORIENTED FOR ME, BUT IS ODD AT TIMES, Q2 TURNS PROVIDED, HOWEVER, WHEN PATIENT SLEEPT BEFORE DINNER, A SINGLE TURN WAS FORGONE SHE HAS NOT SLEPT WELL SINCE EXTUBATION, AND IS VISIBLY EXHAUSTED PRIOR TO NAP. PATIENT POWERGLIDE FLUSHES AND DRAWS WELL, CAPS CHANGED ON PICC AND POWERGLIDE, NO MAJOR CONCERNS FROM THIS BOTTOM CAGER AT THIS TIME, WILL CONTINUE TO MONITOR UNTIL SHIFT CHANGE.
--- NOTE | 2021-10-12 05:41 | NUR ---
SHIFT SUMMERY PT IS ALERT BUT CONVERSATION IS CONFUSED AT TIMES. SHE HAS BEEN IN AFIB ON THE PHARMACY CLINICAL SPECIALIST. BP WNL. COLOSTOMY HAS LIQUID BROWN STOOL OUTPUT, STOMA IS PINK. NAVA CATH IS INTACT PATENT AND DRAINING YELLOW URINE BELOW THE LEVEL OF THE BLADDER. SHE HAS NOT SLEPT TONIGHT. SHE HAS HAD NO S/S OF ACUTE DISTRESS THROUGHOUT THE SHIFT.
--- NOTE | 2021-10-12 16:33 | NUR ---
END OF SHIFT SUMMARY: CHANGES IN CARE, PATIENT HAD DR. SEYMOUR STOP BY AND CHECKED IN ON PATIENT PLACED ORDERS FOR SPIROMETRY AND VBG IN THE AM. HEPARIN IS GOING TO BE STOPPED ONCE XERALTO IS GIVEN. PATIENT HAS BEEN REPOSITIONED ATLEAST Q 2 UNLESS REFUSED BY PATIENT WHEN SHE WAS SLEEPING. PATIENT HAS MULTIPLE FAMILY MEMBERS AT BEDSIDE CURRENLTY, SPO2 HAS BEEN >94%. DENIES CHEST PAIN SOB, REFUSES TO ELEVATE LEGS FOR EXTENDED PERIODS OF TIME UNLESS SLEEPING, CARDIZEM HOME DOSE STARTED THIS AM, ZOFRAN GIVEN ONCE. BLOOD PRESSURE HAS BEEN WITHIN PATIENT NORMAL RANGE. TELE IN PLACE. PATIENT HAS BEEN DENYING ABD PAIN, STOOL FROM COLOSTOMY IS STILL PRODUCING LIQUID STOOL.. ABD INCISION SITE CDI, NO CONCERNS FROM THIS TOOL CHECKER AT THIS TIME, WAS UNABLE TO EAT LUNCH DUE TO SLEEPINESS, PATIENT WILL BE DC'D ON ZOSYN PER VERBAL FROM HOSPITALIST, LAST DOSE IS RUNNING. NO FURTHER CONCERNS QUESTIONS FROM THIS TOOL CHECKER AT THIS TIME.
[2021-10-13 04:37] LABS: Bicarbonate Venous 23.7 mmol/L (24.0-30.0)
[2021-10-13 04:38] LABS: Base Excess Venous -0.1 mmol/L; pH Blood Venous 7.27 (7.34-7.37)
[2021-10-13 04:49] LABS: BASOPHILS ABSOLUTE AUTO 0.05 K/mm3 (0.00-0.23); BASOPHILS PERCENT AUTO 1 % (0-2); EOSINOPHILS ABSOLUTE AUTO 0.18 K/mm3 (0.00-0.68); EOSINOPHILS PERCENT AUTO 2 % (0-6); Hemoglobin 8.2 g/dL (11.5-16.0); IMMATURE GRAN ABSOLUTE AUTO 0.06 K/mm3 (0.00-0.10); IMMATURE GRAN PERCENT AUTO 1 % (0-1); LYMPHOCYTES ABSOLUTE AUTO 1.37 K/mm3 (0.84-5.20); LYMPHOCYTES PERCENT AUTO 15 % (21-46); MONOCYTES ABSOLUTE AUTO 0.67 K/mm3 (0.16-1.47); MONOCYTES PERCENT AUTO 7 % (4-13); Mean Corpuscular HGB 29.1 pg (26.0-34.0); Mean Corpuscular HGB Conc 29.3 g/dL (31.5-36.5); Mean Corpuscular Volume 99 fL (80-100); Mean Platelet Volume 11.5 fL (9.1-12.4); NEUTROPHILS ABSOLUTE AUTO 7.09 K/mm3 (1.96-9.15); NEUTROPHILS PERCENT AUTO 75 % (41-73); Platelet Count 250 K/mm3 (150-400); RDW Coefficient Variation 17.1 % (11.7-14.2); RDW Standard Deviation 61.8 fL (35.1-46.3); Red Blood Cell Count 2.82 M/mm3 (3.80-5.20); White Blood Cell Count 9.42 K/mm3 (4.00-11.30)
--- NOTE | 2021-10-13 05:08 | NUR ---
SHIFT SUMMARY Assumed care of pt at 1900. A/O to self, year and president only. This was after a few times asking and patient gave nonsensical responses. Weakness noted t/o and equal on both sides. Maintains over 95% on 3L NC or CPAP. LS clear on top and dim at bases. Occasional nonproductive cough. Shallow breathing pattern. Afib on tele 80-90's. BP stable. Denies any CP/pressure. Does have pain in legs when trying to elevate them. Strong +2 pulses t/o. Generalized nonpitting edema with 1+ pitting edema to BLE. Slightly tender abdomen when palpated with hypoactive bowel tones. Colostomy in RUQ producing brown output. Stoma pink and moist, edema noted around site. Skin irritation located just above stoma. Marrero cath draining to gravity clear/franchesca urine. Will report to malika HIRSCH.
[2021-10-13 05:10] LABS: Bun/Creatinine Ratio 23.5 (12.0-20.0); Calcium, Blood 9.3 mg/dL (8.5-10.1); Creatinine, Blood 0.89 mg/dL (0.40-1.00); Potassium, Blood 4.3 mmol/L (3.5-5.5)
--- NOTE | 2021-10-13 15:50 | NUR ---
Spiritual care visit conducted. Pt is sitting on EOB and alert. THis director underwriter sales is shocked to see the improvement in pt. Pt has family present, son, Ricco, dtr. Sabina and pt's sister Sabina. They are a lively bunch and bring much laughter to which the pt contributes much to the wit and banter. There is still much respect and love and celebration at the core of it all. I rejoice with them and provide a prayer and praise. I will remain available.
--- NOTE | 2021-10-13 16:30 | NUR ---
DISCHARGE SUMMARY: PATIENT IS ALERT OT SELF, FOLLOWING DIRECTIONS, UNDERSTANDING OF DECISIONS, FAMILY, AND STAFF. PATIENT HAS BEEN AGITATION FREE, PLEASANT, AND MOTIVATED TO IMPROVING HER PHYSICAL STRENGTH. MULTIPLE RETEACHINGS ON IMPORTANCE OF ELEVATING FEET DUE TO EDEMA WHICH WAS WORSE TODAY THAN PREVIOUS DAY. DENIES CHEST PAIN, SOB, OR PRESSURE. PATIENT HAS BEEN ON 2L VIA NC AND ON BIPAP WHEN SLEEPING, 16/ AT 25 %. RT TO BRING A SMALLER VERSION UPSTAIRS. REPORT WAS GIVEN TO RECIEVING RN WITH COMPLETE UNDERSTANDING, NO QUESTIONS COMMENTS OR CONCERNS FROM THE PATIENT OR THE RECIEVING NURSE. ORAL CARE PROVIDED AND XERALTO PRIOR TO TRANSFER TO [facility]. PATIENT WAS MOVED BY 2 X PCT'S AND RN. NO FURTHER CONCERNS FOR THIS PATIENT AT THIS TIME.
--- NOTE | 2021-10-13 19:15 | NUR ---
SHIFT SUMMARY; FREDDY TRANSFERRED FROM PCU EARLY AFTERNOON TODAY. SHE IS ORIENTED TO SELF ON ARRIVAL. PER REPORT FROM [place] RN PATIENT SPENT MOST OF SHIFT LAST NOC IN RECLINER AND HAD VBG THIS AM OF 7.27 PH. SHE USES A BIPAP AT [facility] AND IS ON 3 LITERS BLEED IN. SHE HAS A HISTORY OF COPD CHF(DYSATOLIC) AFIB AND DM2. SHE USES BIPAP AT HOME AND IS ON CHRONIC O2 OF 3 LITERS AT HOME. FREDDY CURRENTLY HAS A NAVA CATHETER IN PLACE. SHE HAS A SURGICAL MIDLINE INCISION AND THE SUTURES WILL NEED TO BE REMOVED IIN 1 OR 2 DAYS. SHE IS ON A SOFT BITE SIZE DM DIET. SHE NEEDS TURNED Q2 HOURS. SHE NEEDS TO BE FED PATIENT HAS DIFFICULTY USING UTENSILS AND TURNS SPOON OVER WHEN TRYING TO BRING TO HER MOUTH. THE DC PLAN IS FOR HER TO GO HOME WITH HOME HEALTH AND FAMILY WILL TRY AND MOVE HER CLOSER TO THEM.
[2021-10-14 04:52] LABS: Base Excess Venous 0.9 mmol/L; PCO2 Venous 54.1 mmHg (38-42); pH Blood Venous 7.31 (7.34-7.37)
--- NOTE | 2021-10-14 05:43 | NUR ---
SHIFT SUMMARY NOC: PT TURNED PERIODICALLY THROUGHOUT NIGHT. PT USED CPAP FOR JUST A FEW HOURS AND ASKED TO BE PLACED BACK ON NASAL CANNULA AT 5L. PT IS VERY WEAK MAX ASSIST. COLOSTOMY PRODUCING BROWN LIQUID WITH BROWN CHUNKY STOOL. INCISION MIDLINE ABD CLEAN DRY INTACT NO SHADOWING. NAVA IN PLACE DRAINING YELLOW CLEAR URINE. A&O*2 PERIODIC CONFUSION, FOLLOWS COMMANDS.
--- NOTE | 2021-10-15 06:41 | NUR ---
SHIFT SUMMARY NOC: PT ON/OFF CPAP AND NASAL CANNULLA THROUGHOUT NIGHT ON 5L O2. PT TURNED FREQUENTLY. PT HAVING RIGHT KNEE AND BACK PAIN. PRN FENTANYL 50 MCG IV GIVEN, WITH POSITIVE PAIN RELIEF BUT PT ALSO DESATED TO HIGH 80'S ON NC 5L. CPAP PLACED PT SATS LOW 90'S. INCISION MIDLINE ABD STERI STRIPS NO DEHISCENCE OR DRAINAGE. COLOSTOMY MEDIUM BROWN STOOL. NAVA DRAINING CLEAR YELLOW URINE.
--- NOTE | 2021-10-15 18:24 | NUR ---
SHIFT SUMMARY; PATIENT WORKS WITH PT OT TODAY. MUCH ENCOURAGEMENT TO TRY AND MOVE HER LEGS AND TO KEEP EXERCISING WHEN SHE IS IN BED AND IN THE RECLINER. PT IS RELUCTANT TO MOVE IT HURTS. PER KEEP NAVA IN PLACE FAMILY WILL BE HAVING A HARD TIME WHEN SHE GOES HOME ON WEDNESDAY ROLLING HER AND TRYING TO KEEP HER DRY WHEN SHE IS IN BED. PER SON REQUEST HE ASKS THAT UNTIL SHE GET A LITTLE STRONGER WORKING WITH PT AT HOME TO KEEP THE NAVA. PER SHE WOULD LIKE THE NAVA CHANGED PRIOR TO THE PATIENT LEAVING AT DISCHARGE. HER VITAL SIGNS REMAIN WITHIN NORMAL LIMITS. SHE IS AO X 3-4 THROUGHOUT MOST OF THE DAY. FREDDY IS IN DENIAL ABOUT HER CAPABILITY OF TAKING CARE OF HERSELF AT HOME. FAMILY IS TRYING TO REORIENT HER AND TO MAKE ARRANGEMENTS FOR HER TO GO TO [place] TO LIVE WITH HER DAUGHTER VAZQUEZ.
--- NOTE | 2021-10-16 06:20 | NUR ---
SHIFT SUMMARY NOC: PT SLEPT MOST OF NIGHT. PT GIVEN PRN TRAMADOL AT BEDTIME TO HELP WITH BACK/LEG PAIN FROM LAYING IN BED. CPAP ON/OFF THROUGHOUT NIGHT. PT DESATS TO LOW 80'S WITHOUT OXYGEN. PT ON 5L NC. NO ACUTE EVENTS.
[2021-10-16] MEDS ORDERED: METO25 PO (10:40)
[2021-10-16] MEDS ORDERED: PANT20 PO (10:41)
[2021-10-16] MEDS ORDERED: VISBIOME 112.51 EACH PO (10:42)
[2021-10-16] MEDS ORDERED: TRAM50 PO (10:42)
[2021-10-16 12:41] LABS: SARS-Cov-2 (COVID-19) PCR, MMC NEGATIVE (NEGATIVE)
--- NOTE | 2021-10-16 16:20 | NUR ---
DISCHARGE SUMMARY [facility]. REPORT CALLED TO RECEIVING RN DOUG. ALL QUESTIONS ANSWERED. DISCHARGE PAPERWORK AND HARD SCRIPT GIVEN TO TRANSPORT. IVS AND TELE D/C'D. COLOSTOMY BAG AND NAVA PRESENT AT DISCHARGE. EX LAP INCISION HEALING WITH STERI STRIPS PRESENT. PATIENT TAKEN VIA STRETCHER TRANSPORTION WITH 4L O2 VIA NC. ALL BELONGINGS SENT WITH PATIENT WELL PATIENTS FAMILY.
== END 2021-10-16 15:52 | DRG 853 ==
LOC: ER 09:28 → ICUW 12:09 → PCU 12:09 → ICUW 10-01 20:50 → PCU 10-11 10:22 → MEDS 10-13 16:26
PROVIDERS: Internal Medicine; Internal Medicine Critical Care Medicine; Nurse Practitioner Acute Care; Student in an Organized Health Care Education/Training Program; Surgery; ADMIT Internal Medicine
PROC: 0D1K0Z4 Bypass Ascending Colon to Cutaneous, Open Approach (ICD-10-PCS; 2021-10-01)
PROC: 0DTL0ZZ Resection of Transverse Colon, Open Approach (ICD-10-PCS; 2021-10-01)
PROC: 0WQF0ZZ Repair Abdominal Wall, Open Approach (ICD-10-PCS; 2021-10-01)
PROC: 3E033XZ Introduction of Vasopressor into Peripheral Vein, Percutaneous Approach (ICD-10-PCS; 2021-10-01)
PROC: 0BH17EZ Insertion of Endotracheal Airway into Trachea, Via Natural or Artificial Opening (ICD-10-PCS; 2021-10-01)
PROC: 5A1955Z Respiratory Ventilation, Greater than 96 Consecutive Hours (ICD-10-PCS; 2021-10-01)
PROC: 3E03329 Introduction of Other Anti-infective into Peripheral Vein, Percutaneous Approach (ICD-10-PCS; principal; 2021-10-01 16:30)
PROC: 05HD33Z Insertion of Infusion Device into Right Cephalic Vein, Percutaneous Approach (ICD-10-PCS; 2021-10-02)
PROC: 5A09457 Assistance with Respiratory Ventilation, 24-96 Consecutive Hours, Continuous Positive Airway Pressure (ICD-10-PCS; 2021-10-10)
DX: A41.9 Sepsis, unspecified organism (principal); J18.9 Pneumonia, unspecified organism; R65.21 Severe sepsis with septic shock; J96.21 Acute and chronic respiratory failure with hypoxia; K43.0 Incisional hernia with obstruction, without gangrene; I50.32 Chronic diastolic (congestive) heart failure; N17.9 Acute kidney failure, unspecified; E87.1 Hypo-osmolality and hyponatremia; J44.0 Chronic obstructive pulmonary disease with (acute) lower respiratory infection; Z68.41 Body mass index [BMI] 40.0-44.9, adult; Z20.822 Contact with and (suspected) exposure to COVID-19; Z78.1 Physical restraint status; T50.2X5A Adverse effect of carbonic-anhydrase inhibitors, benzothiadiazides and other diuretics, initial encounter; I48.91 Unspecified atrial fibrillation; E87.6 Hypokalemia; I11.0 Hypertensive heart disease with heart failure; E66.01 Morbid (severe) obesity due to excess calories; E11.9 Type 2 diabetes mellitus without complications; K21.9 Gastro-esophageal reflux disease without esophagitis; E78.5 Hyperlipidemia, unspecified; E03.9 Hypothyroidism, unspecified; I27.20 Pulmonary hypertension, unspecified; G47.33 Obstructive sleep apnea (adult) (pediatric); Z87.891 Personal history of nicotine dependence; M19.90 Unspecified osteoarthritis, unspecified site; Z90.49 Acquired absence of other specified parts of digestive tract; Z90.89 Acquired absence of other organs; Z90.710 Acquired absence of both cervix and uterus; Z98.51 Tubal ligation status; Z85.828 Personal history of other malignant neoplasm of skin; Z88.5 Allergy status to narcotic agent; Z79.01 Long term (current) use of anticoagulants; Z79.899 Other long term (current) drug therapy; Z79.84 Long term (current) use of oral hypoglycemic drugs; Z86.711 Personal history of pulmonary embolism
CPT/HCPCS: 0241U; 36415; 36569; 36600; 51702; 70450; 71045; 74176; 80048; 80053; 80069; 81003; 82248; 82728; 82803; 82947; 83540; 83550; 83605; 83690; 83735; 83880; 84100; 84145; 84484; 85025; 85027; 85730; 87040; 87070; 87106; 87205; 88307; 92526; 92610; 93005; 93010; 94002; 94003; 94660; 94762; 96365; 96366; 96375; 96376; 97110; 97163; 97166; 97530; 97535; 99285-25; A9270; C1751; C9113; J0456; J0610; J0696; J1100; J1644; J1815; J1940; J2250; J2370; J2405; J2543; J2704; J3010; J3480; J7040; J7050; J7060; P9046; U0004

== ENCOUNTER 2021-11-03 15:24 | Inpatient (IN) | payer MEDICARE, OTHER ==
[~2021-11-03] VITALS: Ht 172.7 cm; Wt 292.0 kg
[~2021-11-03 15:24] MED LIST changes: +BUME1 PO; +BUME2 PO; +FARXIGA5 MG; +METO25 PO; +PANT20 PO; +TRULICITY0.75 MG/01 SC; +VISBIOME 112.51 EACH PO
[2021-11-03 16:11] LABS: BASOPHILS ABSOLUTE AUTO 0.03 K/mm3 (0.00-0.23); BASOPHILS PERCENT AUTO 0 % (0-2); EOSINOPHILS ABSOLUTE AUTO 0.15 K/mm3 (0.00-0.68); EOSINOPHILS PERCENT AUTO 2 % (0-6); Hematocrit 26.4 % (33.0-51.0); IMMATURE GRAN ABSOLUTE AUTO 0.03 K/mm3 (0.00-0.10); IMMATURE GRAN PERCENT AUTO 0 % (0-1); LYMPHOCYTES ABSOLUTE AUTO 1.39 K/mm3 (0.84-5.20); LYMPHOCYTES PERCENT AUTO 16 % (21-46); MONOCYTES PERCENT AUTO 8 % (4-13); Mean Corpuscular HGB 26.9 pg (26.0-34.0); Mean Corpuscular HGB Conc 30.3 g/dL (31.5-36.5); Mean Corpuscular Volume 89 fL (80-100); Mean Platelet Volume 11.7 fL (9.1-12.4); NEUTROPHILS ABSOLUTE AUTO 6.42 K/mm3 (1.96-9.15); NEUTROPHILS PERCENT AUTO 74 % (41-73); Platelet Count 210 K/mm3 (150-400); RDW Coefficient Variation 16.3 % (11.7-14.2); RDW Standard Deviation 53.3 fL (35.1-46.3); Red Blood Cell Count 2.97 M/mm3 (3.80-5.20); White Blood Cell Count 8.72 K/mm3 (4.00-11.30)
[2021-11-03 16:24] LABS: Albumin, Blood 2.3 g/dL (3.4-5.0); Albumin/Globulin Ratio 0.4 (0.8-1.8); Bilirubin, Total 0.4 mg/dL (0.1-1.0); Bun/Creatinine Ratio 17.9 (12.0-20.0); Calcium, Blood 8.2 mg/dL (8.5-10.1); Creatinine, Blood 3.74 mg/dL (0.40-1.00); Globulin, Blood 5.2 g/dL (2.2-4.0); Potassium, Blood 4.1 mmol/L (3.5-5.5); Total Protein, Blood 7.5 g/dL (6.4-8.2)
[2021-11-03 17:06] LABS: Influenza A, PCR NEGATIVE (NEGATIVE); Influenza B, PCR NEGATIVE (NEGATIVE); Resp Syncytial Virus, PCR NEGATIVE (NEGATIVE); SARS-Cov-2 (COVID-19) PCR, MMC NEGATIVE (NEGATIVE)
[2021-11-03 17:53] LABS: Source, Urine Fem Cath
[2021-11-03 17:57] LABS: Appearance, Urine Turbid (Clear); Bilirubin, Urine Neg (Neg); Blood, Urine 4+ (Neg); Color, Urine Yellow (P-Yellow); Glucose Qualitative, Urine Neg (Neg); Ketones, Urine Neg (Neg); Leukocyte Esterase, Urine 3+ (Neg); Nitrite, Urine Neg (Neg); Protein, Urine 2+ (Neg); Urobilinogen, Urine NORM (Normal)
[2021-11-03 18:44] LABS: White Blood Cells, Urine TNTC /hpf (0-5)
[2021-11-03 18:47] LABS: Bacteria Many /hpf; Squamous Epithelial Cells Mod /hpf (Few)
[2021-11-03 18:48] LABS: Yeast/Fungi Urine Few /hpf
--- NOTE | 2021-11-04 04:52 | NUR ---
SHIFT SUMMARY A/OX2, PLEASANTLY CONFUSED AND EASILY REDIRECTED. MIDLINE ABD INCISION JEANETH. COLOSTOMY TO RUQ WITH SOFT BROWN OUTPUT. TELE RUNNING AFIB IN THE 80S-90S. CURRENTLY ON 3L BASELINE O2. VSS, NO ACUTE NEEDS AT THIS TIME. BED IN LOWEST POSITION WITH CALL LIGHT IN REACH. WILL CONTINUE TO MONITOR AND REPORT TO ONCOMING RN.
[2021-11-04 05:02] LABS: Bun/Creatinine Ratio 17.2 (12.0-20.0); Calcium, Blood 7.8 mg/dL (8.5-10.1); Creatinine, Blood 3.61 mg/dL (0.40-1.00); Potassium, Blood 3.8 mmol/L (3.5-5.5)
[2021-11-04 15:34] LABS: Bun/Creatinine Ratio 19.3 (12.0-20.0); Calcium, Blood 8.5 mg/dL (8.5-10.1); Creatinine, Blood 3.31 mg/dL (0.40-1.00); Potassium, Blood 4.2 mmol/L (3.5-5.5)
--- NOTE | 2021-11-04 18:25 | NUR ---
PATIENT ADMITTED LAST NIGHT. TODAY, SHE HAS HAD EPISODES OF SOB. RT SERVICES BEGAN. PATIENT PULLS AT COLOSTOMY. PULLED OUT IV X 2. NOW HAS A POWER GLIDE. SHE IS PLEASANT, BUT IS CONFUSED. LEGS HAVE LARGE SCALES AND REDDENED SKIN. THE PROVIDER STATED IT IS NOT CELLULITIS, BUT HAS A SIMILAR APPEARANCE. PATIENT HAS MARC AND KIDNEY FUNCTION IS VERY DIMINISHED. RUNNING NS AT 75 X 3 BAGS IN ANTICIPATION OF INCREASING THE GFR AND DECREASING DEHYDRATION. DIABETIC WITH REGULAR INSULIN PEN. 2 UNITS GIVEN AT DINNER TIME. LS -CRACKLES, AND WHEEZES DEPENDING ON THE RT NEED AT THE TIME. PATIENT IS BEDBOUND. PATIENT DENIES PAIN. SHE IS ON TELE- REPORT OF AFIB. HIATLE HERNIA CURRENTLY. HTN. COPD. CHF. HBG 8. GFR 13. PATIENT ALSO HAS A PROLAPSE WITH RECTUM PER REPORT, HOWEVER DURING CARES IT WASN'T THAT OBSERVABLE.
[2021-11-05 05:37] LABS: Bun/Creatinine Ratio 23.6 (12.0-20.0); Calcium, Blood 8.2 mg/dL (8.5-10.1); Creatinine, Blood 2.54 mg/dL (0.40-1.00); Potassium, Blood 3.9 mmol/L (3.5-5.5)
--- NOTE | 2021-11-05 05:45 | NUR ---
SHIFT SUMMARY A/O TO SELF AND FAMILY. PT WANTING TO GET OOB AT BEGINNING OF SHIFT, DIFFICULTY WITH REDIRECTING. PULLING OFF OXYGEN, TELE AND COLOSTOMY BAG. 2-3P MAX ASSIST WITH FWW AND GB FOR TRANSFERING TO BED AND CHAIR. CONT/INCONT, ATTENDS IN PLACE. TELE AFIB 70S-90S. INCREASED SOB WITH SATS IN THE LOW 80S. FLY SETTER PROVIDER AT BEDSIDE, PT PLACED ON CPAP WITH CONT. BIOX IN PLACE. CHEST XRAY ORDERED WELL 40MG IV LASIX X1. BED IN LOWEST POSITION WITH CALL LIGHT IN REACH. WILL CONTINUE TO MONITOR AND REPORT TO ONCOMING RN.
[2021-11-05 09:30] LABS: PCO2 Arterial 62.2 mmHg (35-45); PO2 Arterial 73.2 mmHg (80-100); pH Blood Arterial 7.29 (7.35-7.45)
--- NOTE | 2021-11-05 09:50 | NUR ---
CL ABG VALUE OF 7.[address] WARREN AT THIS TIME.
--- NOTE | 2021-11-05 18:11 | NUR ---
SHIFT SUMMARY PT A&OX2-3, PLEASENT MOOD T/O SHIFT. R/T CONTACTED T/O SHIFT FOR LOW O2SATS. PT CURRENTLY ON 8L NC, 86%-PT REFUSING TO UTILIZE BIPAP. PT CONFUSED T/O SHIFT W/ OCC. CLEAR MOMENTS. VISUAL HALLUCINATIONS NOTED, PT THOUGHT THERE WERE FIRE ANTS ON BED AND THOUGHT SHE WAS IN THIS RN'S HOUSE WHEN ASKED ABOUT CURRENT SURROUNDINGS. CALL LIGHT W/IN REACH T/O SHIFT. LIPS/FINGERS CYANOTIC. VSS.
--- NOTE | 2021-11-05 23:31 | NUR ---
PT BECAME VERY AGITATED WHEN BI-PAP WAS PUT ON. CARBON DIOXIDE LEVELS ARE HIGH WHILE ON NASAL CANULA SO BIPAP WAS NECESSARY. SHE CONTINUED TO PULL OFF THE MASK, PULL OFF TELE LEADS, AND TRYING TO PULL OFF HER COLOSTOMY BAG. SHE IS VERY CONFUSED AND THIS NURSE WAS UNABLE TO MAKE HER UNDERSTAND THAT SHE IS IN THE HOSPITAL AND THAT THE BIPAP IS NECESSARY. SOFT WRIST RESTRAINTS WERE APPLIED AND BECAUSE SHE IS ALSO ON BI-PAP IT WAS MANDATORY TO TRANSFER HER TO ICU.
--- NOTE | 2021-11-05 23:41 | NUR ---
PT ARRIVES TO ROOM ICU 12 FROM ROOM 353. REPORT RECEIVED VIA TELEPHONE, AND ADDITIONAL REPORT AT BEDSIDE. PT SLIDE TRANSFERRED TO BED. PT ALERT AND PLEASANTLY DISORIENTED. IS ABLE TO STATE SHE IS IN THE HOSPITAL AND THEN CONVERSATION WOULD WANDER WITH SOME CONFUSION. PT PLACED TO BIPAP AND IS ABLE TO FOLLOW INSTRUCTIONS. SOFT RESTRAINTS IN USE. WILL REVIEW CHART AND PLAN OF CARE FOR THIS PT
--- NOTE | 2021-11-06 01:00 | NUR ---
PT HAS BEEN ABLE TO MAKE HER NEEDS TO USE BEDPAN KNOWN. HAS VOIDED Q.S. WHEN SHE WAS RELEASED FROM WRIST RESTRAINTS, PT WILL PULL OFF BLOOD PRESSURE CUFF, AND PULL OFF HER BIPAP MASK. PT NEEDS TO BE REDIRECTED. SHE IS ABLE TO STATE THAT SHE IS IN THE HOSPITAL. DOES HALLUCINATE THAT SHE WAS SEEING ANGELS IN HER HSOPITAL ROOM, AND WAS CONVINCED HER SISTER WAS AT NURSES DESK.
[2021-11-06 03:43] LABS: BASOPHILS ABSOLUTE AUTO 0.03 K/mm3 (0.00-0.23); BASOPHILS PERCENT AUTO 0 % (0-2); EOSINOPHILS ABSOLUTE AUTO 0.16 K/mm3 (0.00-0.68); EOSINOPHILS PERCENT AUTO 2 % (0-6); Hematocrit 24.6 % (33.0-51.0); Hemoglobin 7.5 g/dL (11.5-16.0); IMMATURE GRAN ABSOLUTE AUTO 0.05 K/mm3 (0.00-0.10); IMMATURE GRAN PERCENT AUTO 1 % (0-1); LYMPHOCYTES ABSOLUTE AUTO 1.18 K/mm3 (0.84-5.20); LYMPHOCYTES PERCENT AUTO 14 % (21-46); MONOCYTES ABSOLUTE AUTO 0.73 K/mm3 (0.16-1.47); MONOCYTES PERCENT AUTO 9 % (4-13); Mean Corpuscular HGB 27.2 pg (26.0-34.0); Mean Corpuscular HGB Conc 30.5 g/dL (31.5-36.5); Mean Corpuscular Volume 89 fL (80-100); Mean Platelet Volume 11.3 fL (9.1-12.4); NEUTROPHILS ABSOLUTE AUTO 6.11 K/mm3 (1.96-9.15); NEUTROPHILS PERCENT AUTO 74 % (41-73); Platelet Count 228 K/mm3 (150-400); RDW Coefficient Variation 16.7 % (11.7-14.2); RDW Standard Deviation 54.1 fL (35.1-46.3); Red Blood Cell Count 2.76 M/mm3 (3.80-5.20); White Blood Cell Count 8.26 K/mm3 (4.00-11.30)
[2021-11-06 03:58] LABS: Bun/Creatinine Ratio 26.5 (12.0-20.0); Calcium, Blood 8.5 mg/dL (8.5-10.1); Creatinine, Blood 2.11 mg/dL (0.40-1.00)
--- NOTE | 2021-11-06 05:21 | NUR ---
PT REMAINS IN SOFT WRIST RESTRAINTS SECONDARY TO HER PULLING AT LINES TUBES, AND EQUIPTMENT. PT HAS URINATED WELL THIS NIGHT. WILL CONTINUE TO MONITOR PT, AND WILL REPORT OFF TO ONCOMING RN.
--- NOTE | 2021-11-06 08:15 | NUR ---
AM NOTE: ASSUMED CARE OF PT AT 0700. THE PT IS AWAKE AND ALERT X 2-3 AND IS IN BED WITH THE NC ON WITH 10 L HIGH FLOW O2. THE PT IS ABLE TO RECALL THE CORRECT YEAR, BUT NOT THE MONTH/DAY, THE PT IS ABLE TO IDENTIFY SELF AND BIRTHDATE, AND LASTLY, THE PT IS NOT ABLE TO IDENTIFY WHERE SHE IS AT ACCURATELY. THE PT IS CURRENTLY IN AFIB WITH HR IN THE 90'S, AND SBP IN THE 110-120'S. THE HAS OXYGEN LEVELS MAINTAINING 90< AND RR 20-24. IT IS OBSERVED DURING REPOSITIONING THAT THE PT DEVELOPES EXERTIONAL DYSPNEA AND O2 LEVELS DROP TO THE MID TO UPPER 80'S. ONCE THE HEAD OF THE BED IS ELEVATED AGAIN, THE PT IS ABLE TO DO DEEP BREATHS THROUGH THE NOSE AND O2 LEVELS STABILIZE. THE PT IS CALM AND COOPERATIVE WITH US THIS MORNING. THE PT RESPONDS BETTER WHEN EXPLAINING OF INTERVENTIONS ARE GIVEN AND THE PT IS INVOLVED WITH THE CARE. THE PT HAS BEEN USING THE BED GARCIA TO URINIATE, AND HAS GOOD OUTPUT THIS MORNING. THE PT HAS A COLOSTOMY IN THE RLQ; THE STOMA APPEAR WNL AND THERE IS FECES IN THE BAD THAT APPEARS TO BE BROWN AND SOFT. THE PT'S ABD IS ROUND AND FIRM, BUT THERE IS NOT PAIN UPON PALPATION OR C/O OF PAIN DURING THE ASSESSMENT. THE PT STATES THAT THIS APPEARENCE IS NORMAL FOR HER. THE PT HAS NOTED WEAKNESS IN THE BLE AND HAS DIFFICULTY MOVING THE BLE; THERE IS CHRONIC PAIN IN THE PT'S BLE THAT IS RELIEVED WITH REPOSITIONING. THE PT HAS WARM EXTREMITIES AND CAP REFIL REMAINS < 3 SECONDS. THE PT HAD A COMPLETE BED BATH THIS MORNING WITH A LINEN CHANGE. FRESH WATER WAS GIVEN TO THE PT AND THE CALL LIGHT WAS PUT IN REACH; AN TELE STICKER PLACED ON NURSE CALL BUTTON FOR THE PT TO BE ABLE TO LOCATE BUTTOM MORE EASILY. THE PT RESPONDED WELL TO THE STICKER AND IS ABLE TO USE CALL LIGHT APPROPRIATELY. WILL CONTINUE TO MONITOR THROUGHOUT THE SHIFT.
--- NOTE | 2021-11-06 10:15 | NUR ---
PT TO TRANSFER: PT HAS RECIEVED A TRANSFER TO PCU WITH A RM AVAILABLE NOW. LARS MONET RN CALLED FOR REPORT FOR THE PT. THE PT WAS TAKEN OFF THE BIPAP MASK AND PLACED ON 10 L HIGH FLOW O2 FOR TRANSPORT. PT TRANSPORTED VIA BED WITH THIS RN, DMITRY HIRSCH AND KADIE RT. ALL BELONGINGS TRANSFERRED WITH PT TO NEW . NEW ASSIGN[facility] PCU 10. PT LEFT THE UNIT APPROX. 1030.
--- NOTE | 2021-11-06 17:58 | NUR ---
SHIFT SUMMARY NO ACUTE EVENTS SINCE ARRIVAL TO UNIT. PT IS CONFUSED, BED AND CHAIR ALARM USED THIS SHIFT. PT ON 10 L HIGH FLOW NASAL CANNULA BY END OF SHIFT, BIPAP USED WHEN NAPPING. PT HAD ONE COUGHING FIT WITH MEAT AT LUNCH, HOWEVER NO ADDITIONAL ISSUES WITH EATING OR DRINKING FOR REST OF SHIFT. PT TRANSFERED TO RECLINER WITH X3 STAFF, WALKER, AND GAIT BELT WITH DIFFICULTY. BED GARCIA USED TO VOID. PT ABLE TO TAKE MEDS WHOLE WITH WATER. PT'S MIDLINE ABDOMEN IS FIRM, ROUNDED, AND NON-TENDER. DISCUSSED WITH DR. WARREN AND WCTM. PT IN A FIB 80s-90s. PT WORKED WITH PT THIS SHIFT.
--- NOTE | 2021-11-06 22:49 | NUR ---
PT INCREASINGLY BECOMING AGITATED/RESTLESS. PULLING OFF CPAP MASK DESAT 70-80'S. NOTIFIED - PRN ZYPREXA ORDERED AND ADMINISTERED. PT STATING 'NOT IN HOSPITAL' UNCOOPERATIVE/AGGRESSIVE VERBALLY AND PHYSICALLY. MACHINE PAINT MIXER AT BEDSIDE.
--- NOTE | 2021-11-07 00:28 | NUR ---
DR. LENZ UPDATED ON PT CONDITION. BEHAVIORS PERSISTS - PT PULLING APART CPAP MASK. PHYSICAL AGGRESSIVE UNABLE TO CONSOLE - CONFUSED/AGITATED
[2021-11-07 03:50] LABS: BASOPHILS ABSOLUTE AUTO 0.04 K/mm3 (0.00-0.23); BASOPHILS PERCENT AUTO 1 % (0-2); EOSINOPHILS ABSOLUTE AUTO 0.11 K/mm3 (0.00-0.68); EOSINOPHILS PERCENT AUTO 1 % (0-6); Hematocrit 24.5 % (33.0-51.0); Hemoglobin 7.3 g/dL (11.5-16.0); IMMATURE GRAN ABSOLUTE AUTO 0.07 K/mm3 (0.00-0.10); IMMATURE GRAN PERCENT AUTO 1 % (0-1); LYMPHOCYTES ABSOLUTE AUTO 1.16 K/mm3 (0.84-5.20); LYMPHOCYTES PERCENT AUTO 15 % (21-46); MONOCYTES ABSOLUTE AUTO 0.67 K/mm3 (0.16-1.47); MONOCYTES PERCENT AUTO 9 % (4-13); Mean Corpuscular HGB 27.1 pg (26.0-34.0); Mean Corpuscular HGB Conc 29.8 g/dL (31.5-36.5); Mean Corpuscular Volume 91 fL (80-100); Mean Platelet Volume 11.7 fL (9.1-12.4); NEUTROPHILS ABSOLUTE AUTO 5.82 K/mm3 (1.96-9.15); NEUTROPHILS PERCENT AUTO 74 % (41-73); NRBC ABSOLUTE 0.03 K/mm3 (0.00-0.02); NRBC Auto 0.4 /100 WBC (0.0-0.2); Platelet Count 236 K/mm3 (150-400); RDW Coefficient Variation 16.6 % (11.7-14.2); RDW Standard Deviation 55.2 fL (35.1-46.3); Red Blood Cell Count 2.69 M/mm3 (3.80-5.20); White Blood Cell Count 7.87 K/mm3 (4.00-11.30)
[2021-11-07 04:13] LABS: Albumin, Blood 2.3 g/dL (3.4-5.0); Albumin/Globulin Ratio 0.4 (0.8-1.8); Bilirubin, Total 0.8 mg/dL (0.1-1.0); Bun/Creatinine Ratio 34.2 (12.0-20.0); Calcium, Blood 8.7 mg/dL (8.5-10.1); Creatinine, Blood 1.61 mg/dL (0.40-1.00); Globulin, Blood 5.5 g/dL (2.2-4.0); Magnesium, Blood 1.9 mg/dL (1.6-2.4); Potassium, Blood 3.7 mmol/L (3.5-5.5); Total Protein, Blood 7.8 g/dL (6.4-8.2)
--- NOTE | 2021-11-07 05:57 | NUR ---
PT CONFUSED/AGITATED NIGHT PROGRESSED. PRN ADMINISTERED - INEFFECTIVE. UNABLE TO REDIRECT BEHAVIORS. AROUND 0500 DOUGLAS PT TOOK OFF COLOSTOMY BAG - COVERED IN BM. BED BATH PERFORMED. INCONTINENT TOTAL BED CHANGE X3. RESIDENT MADE AWARE OF BEHAVIORS. BONY PROMINENCES OFFLOADED AND PROTECTED. REMAINED ON/OFF CPAP
--- NOTE | 2021-11-07 07:10 | NUR ---
ASSUMED CARE: PT RESTING IN BED WITH BIPAP ON 04/01 AT 45% FIO2. AFIB WITH BBB AT 103 ON TELE. NO ACUTE NEEDS OR CONCERNS AT THIS TIME.
--- NOTE | 2021-11-07 09:28 | NUR ---
PT STILL VERY SEDATED THIS AM. UNABLE TO ADMINISTER PO MEDICATIONS. GRUMBLES AND MAKES NOISE WITH STAFF BUT NOT ALERT ENOUGH FOR PO INTAKE AT THIS TIME. OFFICE SERVICES COORDINATOR AWARE, WILL DISCUSS WITH
--- NOTE | 2021-11-07 10:26 | NUR ---
STAFF ENTERED ROOM BECAUSE PT WAS CONFUSED AND REMOVED OSTOMY DEVICE. MUMBLING TO STAFF, SOME WORDS CLEAR, SOME WORDS GARBLED, PT REMAINS LETHARGIC, CLOSING EYES AND APPEARS TO FALL ASLEEP WHILE STAFF TALKING. WILL REMAIN NPO AT THIS TIME. MOTOR CHECKER AT BEDSIDE PERFORMING ORAL CARE.
[2021-11-07 10:49] LABS: PCO2 Arterial 63.3 mmHg (35-45); PO2 Arterial 73.3 mmHg (80-100); pH Blood Arterial 7.34 (7.35-7.45)
--- NOTE | 2021-11-07 11:16 | NUR ---
CALL TO DR GODINEZ TO RELAY POSITIVE URINE CULTURE BUT NO CURRENT ABX ORDERS. TOLD DR ABOUT PT'S NEURO STATUS, THAT PO MEDS HAVE BEEN WITHHELD DUE TO NEURO STATUS AND LETHARGY. PT HAS GARBLED SPEECH BUT ABLE TO UNDERSTAND SOME WORDS. PT APPEARS TO BE HALLUCINATING, GRABBING AT THINGS IN THE AIR. DR TO REVIEW MICRO TO ORDER ABX
--- NOTE | 2021-11-07 13:27 | NUR ---
DISCUSSED WITH PT TAKING MEDICATIONS AND DOING PERSONAL CARE. PT REFUSED AND TOLD STAFF TO GET OUT OF HER ROOM AND THAT IF WE WERE NOT GOING TO DO WHAT SHE WANTED THEN TO GET OUT. TOLD PT WE HAD TO CHANGE HER SO THAT SHE WAS NOT SITTING IN HER OWN URINE BUT PT REFUSED. 3 STAFF MEMBERS REQUIRED TO CHANGE ATTENDS AND LINENS. PT PULLED OFF O2 AND DESATURATED TO 60S. STATED SHE FELT LIKE SHE WAS GOING TO PASS OUT. WENT LIMP BIPAP WAS BEING APPLIED. DISCUSSED WITH DR GODINEZ WHO STATED ICU WITH RESTRAINTS AND BIPAP AND SHE WILL REVIEW CHART TO ORDER MEDS FOR AGITATION. CALL TO AUGUSTINE HIRSCH IN ICU TO TRANSFER
--- NOTE | 2021-11-07 13:53 | NUR ---
ASSUMPTION OF CARE RECEIVED REPORT FROM JOVANNY RN, PATIENT ARRIVED TO ICU FROM PCU AT 1330. CEILING LIFT TO BED. PATIENT WITH EYES CLOSED, NO VERBAL RESPONSE. MILD STIMULI WHEN RN ASSESSED PATIENT'S PUPILS. BIPAP IN PLACE WITH SETTINGS 16/10, 45% FIO2. SP02 ABOVE 95%. ANTIBIOTICS INFUSING VIA POWER GLIDE IN LUE. AFIB RATE 110-120, B/P STABLE. OSTOMY TO ABD, INTACT WITH SOFT, SMALL BROWN STOOL PRESENT. ORDERS REVIEWED, WILL TREAT PRESCRIBED.
[2021-11-07 16:18] LABS: Hematocrit 24.9 % (33.0-51.0); Hemoglobin 7.4 g/dL (11.5-16.0)
--- NOTE | 2021-11-07 18:27 | NUR ---
SHIFT SUMMARY PATIENT REMAINS CONFUSED, WILL OFTEN PULL GOWN, CORDS AND BIPAP OFF. BILATERAL SOFT WRIST RESTRAINTS IN PLACE. ON BIPAP 16/. FIO2 DECREASED TO 30% WITH SP02 ABOVE 90%. AFIB RATE 110-120 WITH STABLE BP. PRN PAIN MEDICATION GIVEN FOR RIGHT LEG PAIN, PATIENT DESAT WHILE OFF BIPAP ON 5L 02 VIA NC. HELD PO PILLS AFTER ULTRAM WAS GIVEN. H&H CHECKED, STABLE RESULTS. REPOSITIONING AND ORAL CARE PROVIDED. WILL REPORT TO ONCOMING RN.
[2021-11-08 03:30] LABS: Hematocrit 23.5 % (33.0-51.0); Hemoglobin 7.1 g/dL (11.5-16.0); Mean Corpuscular HGB 27.3 pg (26.0-34.0); Mean Corpuscular HGB Conc 30.2 g/dL (31.5-36.5); Mean Corpuscular Volume 90 fL (80-100); Mean Platelet Volume 11.1 fL (9.1-12.4); NRBC ABSOLUTE 0.08 K/mm3 (0.00-0.02); NRBC Auto 1.2 /100 WBC (0.0-0.2); Platelet Count 241 K/mm3 (150-400); RDW Coefficient Variation 16.8 % (11.7-14.2); RDW Standard Deviation 55.1 fL (35.1-46.3); White Blood Cell Count 6.75 K/mm3 (4.00-11.30)
[2021-11-08 03:49] LABS: Albumin, Blood 2.1 g/dL (3.4-5.0); Anion Gap 6 mmol/L (6-16); Blood Urea Nitrogen 40 mg/dL (8-24); Bun/Creatinine Ratio 40.7 (12.0-20.0); CO2, Blood 35 mmol/L (21-32); Calcium, Blood 8.9 mg/dL (8.5-10.1); Chloride, Blood 101 mmol/L (98-108); Creatinine, Blood 0.98 mg/dL (0.40-1.00); Glomerular Filtration Rate 60 (60-); Glucose, Blood 139 mg/dL (70-99); Phosphorus, Blood 2.8 mg/dL (2.5-4.9); Potassium, Blood 3.1 mmol/L (3.5-5.5); Sodium, Blood 142 mmol/L (136-145)
[2021-11-08 04:04] LABS: PCO2 Arterial 52.2 mmHg (35-45); pH Blood Arterial 7.44 (7.35-7.45)
--- NOTE | 2021-11-08 06:19 | NUR ---
PT CONFUSED/AGITATED. PINCH & HIT NURSING WITH CARE OR WHEN RESTRAINT LOOSENED FOR TURNS. A.FIB W/RATE 100-120'S. MD NOTIFIED W/ SUSTAINED RATES > 130'S-140'S PRN METROPOLOL ADMINISTERED - EFFECTIVE. COLOSTOMY BAG - LARGE BROWN UNFORMED BM. INCONTINENT OF URINE - PURE WICK IN PLACE 500CC OUT. ASSISTED WITH TURNS BONY PROMINENCES OFFLOADED AND PROTECTED.
--- NOTE | 2021-11-08 07:21 | NUR ---
ASSUME CARE: I have assumed care of this patient.
--- NOTE | 2021-11-08 10:05 | NUR ---
Case Conference Note Reviewed chart, discussed case with Primary RN Emily, PT Gurvinder, and Dr Adame. Pt significantly confused at this time. Pt has had multiple ED and hospital stays in the last 6 months. Family may benefit from considering hospice. Palliative Care will F/U with Pt's son Alexx for advanced care planning and goals of care discussion.
--- NOTE | 2021-11-08 13:00 | NUR ---
Pt resting in bed, confused, and moderately anxious. Significant cough noted. Pt's son Alexx at bedside. Engaged in therapeutic conversation outside of Pt's room regarding advanced care planning. Gentle education on disease process including trajectory. Discussed the importance of planning for the future and at some point considering hospice. Alexx reports having conversation with other family members and family has been leaning towards comfort and quality. Alexx reports plan to consider options during Pt's hospital coarse. Spoke with Primary RN Emily and discussed case. Spoke with Dr Adame and discussed case. Palliative Care will remain available.
[2021-11-08 14:09] LABS: Hematocrit 24.8 % (33.0-51.0); Hemoglobin 7.4 g/dL (11.5-16.0)
--- NOTE | 2021-11-08 14:45 | NUR ---
UPDATE: pt increasingly aggitated and confused. Dr Adame notified and VBG ordered.
[2021-11-08 15:08] LABS: Base Excess Venous 12.6 mmol/L; Bicarbonate Venous 34.8 mmol/L (24.0-30.0); PCO2 Venous 57.3 mmHg (38-42); pH Blood Venous 7.42 (7.34-7.37)
--- NOTE | 2021-11-08 18:27 | NUR ---
SHIFT SUMMARY: NEURO: pt increasingly confused throughout the day. She gets very upset with nursing staff sporadically due to hallucinations or confusion. She is oriented to self and year and is moving all extremities. Pt up in chair twice today with lift. PRN zofran and ultram given once. CARDIAC: afib on monitor. rate controlled well with oral medications RESPIRATORY: pt has been on 4-6 liters NC for most of the day with some desaturations. Flutter valve encouraged. Tessalon pearls given for incessant caugh. GI/: purewick in place for accurate Is&Os. Indwelling bryant discussed with provider. Large colosomy output this morning requiring appliance change. Pt tolerating meals well. SKIN: no new skin breakdown. Purewick was repositioned and skin was checked q 4 hours per discussion with viscose cellar charge hand. PSYCH/SOCIAL: family at bedside for short time this afternoon. Pt very paranoid. She yells out to hallucinations frequently.
[2021-11-09 04:00] LABS: PCO2 Arterial 68.1 mmHg (35-45); PO2 Arterial 69.4 mmHg (80-100); pH Blood Arterial 7.35 (7.35-7.45)
[2021-11-09 04:20] LABS: Hematocrit 26.9 % (33.0-51.0); Hemoglobin 7.7 g/dL (11.5-16.0)
[2021-11-09 04:40] LABS: Albumin, Blood 2.1 g/dL (3.4-5.0); Anion Gap 3 mmol/L (6-16); Blood Urea Nitrogen 35 mg/dL (8-24); Bun/Creatinine Ratio 33.7 (12.0-20.0); CO2, Blood 38 mmol/L (21-32); Calcium, Blood 8.8 mg/dL (8.5-10.1); Chloride, Blood 102 mmol/L (98-108); Creatinine, Blood 1.04 mg/dL (0.40-1.00); Glomerular Filtration Rate 56 (60-); Glucose, Blood 179 mg/dL (70-99); Magnesium, Blood 1.6 mg/dL (1.6-2.4); Phosphorus, Blood 3.9 mg/dL (2.5-4.9); Potassium, Blood 3.6 mmol/L (3.5-5.5); Sodium, Blood 143 mmol/L (136-145)
--- NOTE | 2021-11-09 06:10 | NUR ---
PT CONFUSED/AGITATED. PULLING LINES, BIPAP OFF, ATTEMPTING TO EXIT BED. RESTRAINTS INTIATED FOR PT SAFETY, EDUCATION PROVIDED. BIPAP OVERNIGHT. AFIB HR 100'S. DENIES PAIN OR DISCOMFORT. INCONTINENT OF URINE - PURE WICK IN PLACE CHANGED AND GIANA CARE PERFORMED W/HOGSHEAD WEIGHER. Q2 TURNS BONY PROMINENCES OFFLOADED AND PROTECTED.
--- NOTE | 2021-11-09 07:08 | NUR ---
ASSUME CARE: I have assumed care of this patient.
--- NOTE | 2021-11-09 10:11 | NUR ---
Offered supportive visit this AM. Pt sitting in recliner chair and is pleasantly confused. Pt denies pain at this time. Spoke with Primary RN Emily and discussed case. Will F/U when son arrives for supportive visit. Palliative Care will remain available.
--- NOTE | 2021-11-09 17:45 | NUR ---
SHIFT/TRANSFER SUMMARY: pt to PCU 18 NEURO: pt alert and oriented to self and year. She is much more pleasant and agreeable today. Up in chair for most of day. CARDIAC: rate controlled well with oral meds; bp stable RESPIRATORY: coarse on 6L nasal cannula. CXR was discussed with provider this AM. GI/: good PO intake with breakfast and dinner. no output from cholostomy, mirilax given this AM. Purewick still in place; skin remains intact with Q4 checks. PSYCH/SOCIAL: paranoia worsns in evening. Pt told RN, "They said someone is trying to kill me. I need my son to come get me." Son called to reorient and redirect pt.
--- NOTE | 2021-11-09 18:31 | NUR ---
PT TRANSFERRED TO PCU 18 VIA RECLINER, PT IS A MAX ASSIST, ON 6L OF O2. PT ALERT AND ORIENTED X2, S PER REPORT. BIPAP AT BEDSIDE ON STANDBY. CALL LIGHTS IN REACH. WILL REPORT TO ONCOMING SHIFT
[2021-11-10 04:26] LABS: Hemoglobin 7.5 g/dL (11.5-16.0); Mean Corpuscular HGB 27.2 pg (26.0-34.0); Mean Corpuscular HGB Conc 28.8 g/dL (31.5-36.5); Mean Corpuscular Volume 94 fL (80-100); Mean Platelet Volume 11.5 fL (9.1-12.4); NRBC ABSOLUTE 0.06 K/mm3 (0.00-0.02); NRBC Auto 0.6 /100 WBC (0.0-0.2); Platelet Count 256 K/mm3 (150-400); RDW Coefficient Variation 17.5 % (11.7-14.2); RDW Standard Deviation 59.1 fL (35.1-46.3); Red Blood Cell Count 2.76 M/mm3 (3.80-5.20); White Blood Cell Count 9.65 K/mm3 (4.00-11.30)
[2021-11-10 04:43] LABS: Albumin, Blood 2.2 g/dL (3.4-5.0); Anion Gap 4 mmol/L (6-16); Blood Urea Nitrogen 34 mg/dL (8-24); Bun/Creatinine Ratio 31.8 (12.0-20.0); CO2, Blood 35 mmol/L (21-32); Calcium, Blood 8.9 mg/dL (8.5-10.1); Chloride, Blood 101 mmol/L (98-108); Creatinine, Blood 1.07 mg/dL (0.40-1.00); Glomerular Filtration Rate 54 (60-); Glucose, Blood 164 mg/dL (70-99); Phosphorus, Blood 3.9 mg/dL (2.5-4.9); Potassium, Blood 4.2 mmol/L (3.5-5.5); Sodium, Blood 140 mmol/L (136-145)
--- NOTE | 2021-11-10 13:37 | NUR ---
Pt resting in bed and appears much improved today. Pt's son Alexx at bedside. Engaged in therapeutic conversations regarding goals of care after hospital stay. Pt reports wanting to focus on comfort and quality of life. Son Lilian is also in agreement and would like hospice once Pt is medically stable for D/C. Nigel Coffey is also requesting assistance with snf placement and reports Pt's has APD services. No other concerns reported at this time. Spoke with Primary RN Erick and discussed case. Palliative Care will remain available.
--- NOTE | 2021-11-10 17:43 | NUR ---
SHIFT SUMMARY: PT ALERT, ORIENTED x3 AND COOPERATIVE W/CARE MOST OF THE SHIFT. PT MAINTAINING O2 SATS >90% ON HUM HI ELIZABETH, 6-7 L/MIN. AFIB 110s ON MONITOR. PUREWICK IN PLACE, SET TO SUCTION W/ATTENDS IN PLACE. ATTENDS, CLEAN BEDDING AND NEW PUREWICK THIS SHIFT. PT REPOSITIONED PER PROTOCOL T/OUT SHIFT. AT APPROX 1600, CONFUSION INCREASES AND PT EXPRESSES PARANOIA STATING "CAN YOU GIVE ME A RIDE TO THE HOSPITAL OR TO MY AUNT'S HOUSE", "YOU ARE TRYING TO KILL ME". PT REORIENTED TO BEING IN HOSPITAL AND DENIES, STATING SHE BELIEVES SHE IS AT THIS RN'S HOUSE. PT ALSO REFUSING CARE SUCH BLOOD PRESSURE ASSESSMENT AND BLOOD GLUCOSE ASSESSMENT. CHARGE NURSE, LOIS, NOTIFIED. DR GODINEZ NOTIFIED AT BEDSIDE. PT'S SON, KAROLINA, NOTIFIED VIA TELEPHONE. AT THIS TIME, PT IS RESTING IN BED WITH CALL LIGHT IN REACH. WILL CONTINUE TO MONITOR AND TREAT ACCORDINGLY UNTIL CHANGE OF SHIFT.
[2021-11-11 05:16] LABS: Albumin, Blood 2.2 g/dL (3.4-5.0); Anion Gap 4 mmol/L (6-16); Blood Urea Nitrogen 35 mg/dL (8-24); Bun/Creatinine Ratio 28.7 (12.0-20.0); CO2, Blood 33 mmol/L (21-32); Calcium, Blood 8.9 mg/dL (8.5-10.1); Chloride, Blood 101 mmol/L (98-108); Creatinine, Blood 1.22 mg/dL (0.40-1.00); Glomerular Filtration Rate 46 (60-); Glucose, Blood 183 mg/dL (70-99); Phosphorus, Blood 3.6 mg/dL (2.5-4.9); Sodium, Blood 138 mmol/L (136-145)
--- NOTE | 2021-11-11 05:58 | NUR ---
SHIFT SUMMARY ASSUMED CARE OF PT AT 1900. PT IS CONFUSED AND WANTING TO GET OUT OF BED SO THAT SHE COULD CLEAN THE KITCHEN. HEART SOUNDS IRREGULAR. LUNG SOUNDS DIMINISHED. PT REFUSED TO WEAR BIPAP STATING THAT SHE COULD NOT BREATH WITH IT ON. PT ONLY SLEPT 1 HOUR DURING THE NIGHT. PT WAS BOTH CONTIENT AND INCONTIENT TO THE BEDPAN. PT WAS ABLE TO ROLL IN BED WITH 2P ASSIST. PT OSTOMY HAD NO STOOL THIS EVENING BUT WAS BURPED TWICE.
--- NOTE | 2021-11-11 18:14 | NUR ---
SHIFT SUMMARY: PT CONFUSED T/OUT SHIFT BUT HAS BEEN COOPERATIVE W/CARE. PT CONTINUES ON HUM HIFLO AT 7 L/MIN, O2 SATS >90% AT REST, LS COARSE ON LEFT SIDE. AFIB ON MONITOR, RATE 90-100s. OSTOMY BAG AND ATTENDS CHECKED FREQUENTLY, OSTOMY BAG BURPED x3 W/NO BM AND ATTENDS CHANGED x2. PT RECEIVES BEDBATH, NEW LINENS PLACED, PT TRANSFERED TO RECLINER VIA LIFT AND SPENDS MOST OF THE AFTERNOON THERE. AT THIS TIME, PT RESTING IN BED W/CALL LIGHT IN REACH. WILL CONTINUE TO MONITOR AND TREAT ACCORDINGLY UNTIL CHANGE OF SHIFT.
[2021-11-11 20:21] LABS: Base Excess Venous 8.3 mmol/L; Bicarbonate Venous 30.4 mmol/L (24.0-30.0); PCO2 Venous 60.4 mmHg (38-42); pH Blood Venous 7.36 (7.34-7.37)
[2021-11-12 04:44] LABS: Hematocrit 26.9 % (33.0-51.0); Hemoglobin 7.8 g/dL (11.5-16.0); Mean Corpuscular Volume 93 fL (80-100); Mean Platelet Volume 11.7 fL (9.1-12.4); NRBC ABSOLUTE 0.14 K/mm3 (0.00-0.02); NRBC Auto 1.4 /100 WBC (0.0-0.2); Platelet Count 283 K/mm3 (150-400); RDW Standard Deviation 59.4 fL (35.1-46.3); Red Blood Cell Count 2.89 M/mm3 (3.80-5.20); White Blood Cell Count 10.33 K/mm3 (4.00-11.30)
[2021-11-12 05:06] LABS: Albumin, Blood 2.3 g/dL (3.4-5.0); Anion Gap 5 mmol/L (6-16); Blood Urea Nitrogen 40 mg/dL (8-24); Bun/Creatinine Ratio 28.2 (12.0-20.0); CO2, Blood 32 mmol/L (21-32); Calcium, Blood 8.8 mg/dL (8.5-10.1); Chloride, Blood 100 mmol/L (98-108); Creatinine, Blood 1.42 mg/dL (0.40-1.00); Glomerular Filtration Rate 38 (60-); Glucose, Blood 201 mg/dL (70-99); Phosphorus, Blood 4.7 mg/dL (2.5-4.9); Potassium, Blood 5.7 mmol/L (3.5-5.5); Sodium, Blood 137 mmol/L (136-145)
--- NOTE | 2021-11-12 06:05 | NUR ---
SHIFT SUMMARY ASSUMED CARE OF PT AT 1900. PT IS ALERT BUT NOT ORIENTED. PT REFUSED BIPAP AND HAD TO BE RESTRAINTED SHORTLY DUE TO REFUSING OXYGEN AND SATRATIONS DROPPED TO 60. PT WAS ABLE TO TAKE HERSELF OUT OF RESTARINTS AND PROMISED NOT TO PULL OFF OXYGEN AND SHE DIDNT T/O THE NIGHT. AT AROUND 0300 PT SATURATIONS DROPPED AND AIRVO WAS PUT ON AT 40L/80% TO MAINTAINT ABOVE 95%. PT IS MORE LETHARGIC AND SCARES EASILY. PT SKIN IS MORE ASHEN AND PT WORDS ARE GARBLED. PT IS HALLUCINATING STILL AND THINKS THERES A BALLOON IN THE CORNER OF THE ROOM. HOSPITALIST NOTIFED OF LABS AND CHANGE IN CONDITION AND IS COMING TO THE FLOOR TO CHECK PT AND ORDERED LABS.
[2021-11-12 06:43] LABS: PCO2 Arterial 57.8 mmHg (35-45); pH Blood Arterial 7.38 (7.35-7.45)
--- NOTE | 2021-11-12 07:42 | NUR ---
ASSUMPTION OF CARE RECEIVED REPORT FROM AGATHA HIRSCH AT 0700, ASSUMED CARE OF PATIENT. PATIENT IN BED, EASILY AWOKE. CLEAR SPEECH STATING SHE WAS IN A KLAUDIA. COOPERATIVE WITH CARE. AIRVO VIA NASAL CANNULA IN PLACE WITH SETTINGS 40L/60%, SP02 95%. VITALS STABLE, AFIB RATE CONTROLLED AT THIS TIME, 80-90'S. CALCIUM GLUCONATE INFUSING VIA POWER GLIDE TO LUE. ATTENDS IN PLACE DUE TO INCONTINENCE, OSTOMY WITH BAG INTACT. BROWN, FORMED STOOL PRESENT. REVIEWING ORDERS, WILL TREAT PRESCRIBED.
--- NOTE | 2021-11-12 08:06 | NUR ---
CONFUSION PATIENT CURRENTLY STATING SHE NEEDS TO GO BE WITH HER SISTER IN [place]. PATIENT STATED THINGS WOULD BE EASIER IF SHE LEFT TO BE WITH HER SISTER AND REPEATED THIS SEVERAL TIMES. PATIENT SAID SHE FELT LIKE SHE ISN'T HAVING A GOOD DAY AND DOESN'T WANT TO DISCUSS THAT SHE IS IN THE HOSPITAL. PATIENT TOOK HER MORNING MEDICATIONS THEN SAID SHE DIDN'T FEEL HUNGRY TO TRY BREAKFAST YET. MIKAYLAY PROVIDED AND SET UP, PATIENT REPOSITIONED AND EDUCATED SHE MAY TRY TO EAT IF SHE BECOMES HUNGRY. CALL LIGHT IN REACH.
--- NOTE | 2021-11-12 11:20 | NUR ---
Met with pt's son Alexx this morning. He indicates he is ready to pursue comfort care for his mom. He recollects she has made it very clear she does not want to live with a poor quality of life. The increase in her confusion along with her dependence on high flow air has led him to this decision. Pt is pleasantly confused this morning, and son is returning home to get his cell phone. He would like to have a conference call with his sister and aunt (pt's daughter and sister), so they are able to see her and say their goodbyes. Pt will be placed on comfort care after the video conference call at son's request. Dr. Adame gave VO for comfort care via telephone. Palliative care will remain available through the day to manage symptoms, support bedside RN, pt and pt's son. Molding Machine Operator Helper arranging return to [facility] with hospice if she is accepted, and if so if pt is able to tolerate the transport.
--- NOTE | 2021-11-12 16:44 | NUR ---
COMFORT CARE PATIENT WAS TRANSITIONED TO COMFORT CARE STATUS. AIRVO 40L/70% REMAINS IN PLACE FOR COMFORT. PATIENT WITH SP02 IN LOW 80'S, PATIENT CONFUSED. KEEPS ASKING TO HELP GET READY TO LEAVE AND THAT SHE IS READY TO GO. CALL WAS PLACED TO SON AT 1600 EXPLAINING HIS MOTHER'S INCREASED CONFUSION AND DECLINE IN SATURATIONS. SON TO ROOM AT 1620. DR. GODINEZ UPDATED REGARDING PATIENT'S CURRENT STATUS AND CHANGES.
--- NOTE | 2021-11-12 18:14 | NUR ---
SHIFT SUMMARY PATIENT REMAINS ON AIRVO 40L/70% FOR FAMILY AND PATIENT'S OWN COMFORT. MORPHINE WAS GIVEN FOR AIR HUNGER, PATIENT WITH COMFORTABLE BREATHING PATTERN AFTER ADMINISTRATION. SON IS NOT READY TO REMOVE 02 AT THIS TIME, BUT UNDERSTANDS WE WILL LEAVE IT OFF IF MOTHER REMOVES IT HERSELF. CURRENTLY SP02 RANGES FROM 60-90, WILL ASSESS FOR COMFORT AND REPORT TO ONCOMING RN
--- NOTE | 2021-11-12 20:56 | NUR ---
COMFORT CARE SON PRESENT AT START OF SHIFT. THIS NURSE ASKED TO TURN OFF PT MONITORING DUETO SON STARING AT SCREEN AND WORRYING OVER PT. SON EDUCATED ABOUT PT CARE OVER VITAL SIGNS AND AGREED TO TURNING OFF THE MONITOR. PT STATES SOB, MEDICATED PER EAMR. PT REPORTS BEING WARM, ICEPACK APPLIED. PT CHANGED AND READY FOR BED. THIS NURSE CONSULTED RT TO HELP TITRATE PT DOWN FROM AIRVO TONIGHT.
--- NOTE | 2021-11-12 22:18 | NUR ---
COMFORT CARE PT WAS TITRATED OFF OF AIRVO AND RESTING COMFORTABLE. PT IS MORE CONFUSED BUT TALKING AND ABLE TO MAKE NEEDS KNOWN. PT IS NOW ON 7L NC.
--- NOTE | 2021-11-13 05:43 | NUR ---
SHIFT SUMMARY ASSUMED CARE OF PT AT 1900. PT IS MORE SOMULENT THIS AM. PT HAS BEEN RESTFUL T/O THE NIGHT. PT TITRATED FROM AIRVO TO 2L NC. NO COMPLAINTS.
--- NOTE | 2021-11-13 07:13 | NUR ---
Late Note from due to [employer] downtime. I visited with pt and pt's son, Ricco, through out the day. Discussed the emotional/spiritual struggles Ricco is dealing with, he is tearful at times and very attentive to his mother's needs. I also provide music therapy for pt and Ricco. They are both musicians and song writers. I provide a calming presence, therapeutic listening, and prayers. Pt and and Ricco are very encouraged by conversation centered around their be and by prayer. I will continue to remain available to pt and family.
--- NOTE | 2021-11-13 09:56 | NUR ---
PT RESTING QUIETLY WITH EYES CLOSED, RESPIRATIONS EVEN AND UNLABORED, RR 12. NO APPARENT S/SX OF DISTRESS. PT'S SON AT BEDSIDE. CALL LIGHT IN REACH.
--- NOTE | 2021-11-13 13:14 | NUR ---
Several visits again today, providing prayer, music therapy (son, Alexx, brought in his guitar and we played a few songs together as well), theological insights and anticipatory grief/emotional support. Pt and Alexx respond well and show signs of being comforted and encouraged in their be. I will continue to remain available.
--- NOTE | 2021-11-13 14:55 | NUR ---
Pt's son at bedside, visiting with her. Airvo removed, pt using nasal cannula. No s/s of distress at this time. Palliative will continue to monitor.
--- NOTE | 2021-11-13 17:58 | NUR ---
PT RESTING COMFORTABLY T/O THE DAY WITH OCCASIONAL DOSES OF ROXINOL FOR PAIN. FAMILY AT BEDSIDE, PT AWAKE AND ALERT, ALTHOUGH SOMEWHAT CONFUSED AT TIMES. NO SIGNIFICANT CHANGES T/O THE SHIFT. BED ALARM ON FOR SAFETY. CALL LIGHT IN REACH.
--- NOTE | 2021-11-13 20:12 | NUR ---
ASSUMED CARE NOTE PT RESTING IN BED WEARING NASAL CANNULA. PT APPEARS PALE BUT AWAKENS SPONTANEOUSLY UPON ENTERING THE ROOM. PT IS CONFUSED BUT IS ABLE TO DECLINE REPOSITIONING, BUT CLINCICALLY APPEARS TO BE IN PAIN. DURING BEDSIE REPORT THIS NURSE NOTICED THIS PATIENTS GOWN TO BE SOAKED IN BLOOD. PT UNDRESSED AND REDRESSED. PT HAS A MIDLINE INCISION THAT HAS AN OPEN AREA THAT IS OOZING BLOOD CONTINUALLY AND APPEARS TO BE AN SMALL AREA OF DEHISCENCE. DRY DRESSING APPLIED. WILL MONITOR BLEEDING. PT MEDICATED PER EMAR ORDERS AND SEVERITY OF PAIN. THIS PATIENT IS COMFORT CARE AND THIS NURSE WILL MONITOR HER FOR ANY CHANGES IN HER STATUS.
--- NOTE | 2021-11-13 22:15 | NUR ---
TRANSFER NOTE REPORT CALLED KERRIE ON THE MEDICAL FLOOR TO ROOM 301. PT UNDRESSED HERSELF AND HAD RIPPED OFF COLOSTOMY BAG. ABDOMEN DRESSING CHANGED DUE TO REMAL BY PATIENT. SMALL AMOUNT OF BLOOD OOZING FROM THE SITE THE PT IS DISTENDED IN THAT AREA. COLOSTOMY BAG REAPPLIED. PT IS BECOMING MORE AGITATED AND INFORMED THE RECEIVING NURSE TO ANTICIPATE THE NEED FOR LORAZEPAM. PT BELONGINGS GATHERED AND TAKEN WITH THE PATIENT TO ROOM. GOALS OF CARE DISCUSSED WITH THE RECEIVING NURSE AND GAVE HER THE SON'S HOME AND CELL PHONE NUMBER. SON WAS ALSO INFORMED HIS MOTHER IS TRANSFERRING TO ROOM 301.
--- NOTE | 2021-11-14 04:35 | NUR ---
SHIFT SUMMARY: COMFORT CARE MEASURES CONTINUED. PT ONLY ALERT TO SELF ONLY. CONTINUED CONFUSION, OCCASIONAL IRRITABILITY AND RESISTANCE TO CARE. INCREASED ANXIETY NOTED WHEN PT WAS TRANSFERED TO UNIT- IV ATIVAN ADMINISTRATION GAVE RELIEF AND ALLOWED PATIENT TO REST. ABDOMINAL INCISION DEHISCED CAUSING CONTINUED BLOODY DRAINAGE. ABDOMINAL DRESSINGS CHANGED AND REAPPLIED. PT DECLINED PAIN MEDICATION THIS MORNING. BED ALARM ACTIVATED, BED IN LOW POSITION, CALL BEAL AND BELONGINGS IN REACH.
--- NOTE | 2021-11-14 10:30 | NUR ---
Spiritual care visit conducted. Pt is lying in bed and awake but restful. She quickly engages in conversation but seems more confused today than yesterday. She is expressing concerns about the souls of others and what she needs to do about the forgiveness for those who are "off the path" and have done harm to her life. We pray together for forgiveness to fill her heart and rest the faults and flaws of others in God's hands. I hear confession and provide therapeutic listening, pastoral gambling counsellor and prayer. Pt repsonds well and shows signs of catharsis. I will continue to remain available to pt and family.
--- NOTE | 2021-11-14 17:59 | NUR ---
COMFORT CARE SUMMARY PATIENT MEDICATED X1 WITH ATIVAN FOR ANXIETY AND SHORTNESS OF BREATH. PATIENT PLEASANTLY CONFUSED. PATIENT REMOVED BANDAGES ON ABD ONCE AND OSTOMY BAG ONCE. REPLACED THOSE. PATIENT ON 3L FOR COMFORT. PATIENT HAD VISITORS. PATIENT CALM AND COMFORTABLE AT END OF SHIFT.
--- NOTE | 2021-11-15 05:21 | NUR ---
SHIFT SUMMARY. 76 YR F ON COMFORT CARE THIS MORNING AT 0035. HER SON WAS CALLED BUT HE DID NOT ANSWER. A MESSAGE WAS LEFT FOR HIM TO CALL BACK REGARDING HIS MOTHER. POST-MORTUM CARE DONE: IV REMOVED, COLOSTOMY BAG REMOVED, PUREWICK REMOVED. PT CLEANED AND PLACED IN A CLEAN YELLOW GOWN.
--- NOTE | 2021-11-15 10:40 | NUR ---
PT PICKED UP PT PICKED UP BY STEFAN [facility] AT 1038. PT BELONGINGS SENT WITH THE PT.
== END 2021-11-15 00:35 | DRG 682 ==
LOC: ER 15:24 → MEDS 20:39 → ICUW 11-05 22:33 → PCU 11-06 10:24 → ICUW 11-07 13:43 → PCU 11-09 18:20 → MEDS 11-13 22:18
PROVIDERS: Emergency Medicine; Family Medicine; Internal Medicine; ADMIT Internal Medicine
PROC: 5A0955A Assistance with Respiratory Ventilation, Greater than 96 Consecutive Hours, High Flow/Velocity Cannula (ICD-10-PCS; principal; 2021-11-03)
PROC: 5A09557 Assistance with Respiratory Ventilation, Greater than 96 Consecutive Hours, Continuous Positive Airway Pressure (ICD-10-PCS; 2021-11-03)
DX: N17.9 Acute kidney failure, unspecified (principal); G92.8 Other toxic encephalopathy; I50.33 Acute on chronic diastolic (congestive) heart failure; J96.21 Acute and chronic respiratory failure with hypoxia; J96.22 Acute and chronic respiratory failure with hypercapnia; E87.1 Hypo-osmolality and hyponatremia; I48.20 Chronic atrial fibrillation, unspecified; N39.0 Urinary tract infection, site not specified; Z51.5 Encounter for palliative care; Z66 Do not resuscitate; J44.9 Chronic obstructive pulmonary disease, unspecified; Z20.822 Contact with and (suspected) exposure to COVID-19; E11.9 Type 2 diabetes mellitus without complications; I11.0 Hypertensive heart disease with heart failure; E86.0 Dehydration; E86.1 Hypovolemia; I95.9 Hypotension, unspecified; D63.8 Anemia in other chronic diseases classified elsewhere; K59.00 Constipation, unspecified; G47.33 Obstructive sleep apnea (adult) (pediatric); B95.2 Enterococcus as the cause of diseases classified elsewhere; D50.9 Iron deficiency anemia, unspecified; E87.5 Hyperkalemia; Z99.89 Dependence on other enabling machines and devices; Z93.3 Colostomy status; Z86.711 Personal history of pulmonary embolism; Z90.49 Acquired absence of other specified parts of digestive tract; Z90.89 Acquired absence of other organs; Z98.51 Tubal ligation status; Z98.890 Other specified postprocedural states; Z88.5 Allergy status to narcotic agent; Z79.01 Long term (current) use of anticoagulants; Z79.84 Long term (current) use of oral hypoglycemic drugs; Z79.899 Other long term (current) drug therapy; E87.6 Hypokalemia; Z99.81 Dependence on supplemental oxygen
CPT/HCPCS: 0241U; 36415; 36600; 70450; 71045; 80048; 80053; 80069; 81001; 82803; 82947; 83735; 83880; 84132; 84145; 85014; 85018; 85025; 85027; 87077; 87086; 87106; 87186; 92526; 92610; 93005; 93010; 94640; 94660; 94664; 94760; 94762; 96360; 96361; 97110; 97162; 99285-25; A9270; C1751; C9113; J1170; J1940; J1956; J2060; J2270; J2405; J2916; J3480; J7030; J7050; P9612